=== PATIENT | male | born 1930 | race American Indian/Alaskan Native ===

== ENCOUNTER 2016-07-08 14:53 | Inpatient (IN) | payer MEDICARE, MEDICAID ==
[2016-07-08 14:59] VITALS: BMI 31.4
[2016-07-08] MEDS ORDERED: Aspirin 325 mg EC Tablets PO STA (15:17)
--- NOTE | 2016-07-08 15:44 | RAD ---
HISTORY: chest pain COMPARISON: 06/30/2016 FINDINGS: LUNGS: No active pulmonary disease. PLEURA: No significant pleural effusion identified, no pneumothorax apparent. CARDIOVASCULAR: Normal heart size. Right subclavian central venous port. OSSEOUS STRUCTURES: No significant abnormalities. VISUALIZED UPPER ABDOMEN: Normal. OTHER FINDINGS: None. IMPRESSION: No active disease.
--- NOTE | 2016-07-08 15:53 | ED PDOC ---
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 Pt states that this morning he went to crab picker a package from the floor and he started to feel L sided chest pain and shoulder pain. His daughter than called the EMS. Pt denies this ever occurring before but admits to being more shortness of breath in the past few weeks. He denies any nausea, vomiting, diaphoresis. He states that the pain was 7/10 in severity. He denies any headache, dizziness, f/c, palpitations, abd pain, n/v/ d. (Aguila Cifuentes) Past Medical History - Provider Review Nursing Documentation Reviewed: Yes - Infectious Disease Hx of Infectious Diseases: None - Tetanus Immunization Tetanus Immunization: Unknown - Cardiac Hx Cardiac Disorders: Yes Hx Hypertension: Yes - Pulmonary Hx Respiratory Disorders: No - Neurological Hx Neurological Disorder: No - HEENT Hx HEENT Disorder: Yes Hx Blind: Yes (left eye cancer) Hx Glaucoma: Yes (right eye) - Renal Hx Renal Disorder: No - Endocrine/Metabolic Hx Endocrine Disorders: No - Hematological/Oncological Hx Blood Disorders: No - Integumentary Hx Dermatological Disorder: No - Musculoskeletal/Rheumatological Hx Musculoskeletal Disorders: No - Gastrointestinal Hx Gastrointestinal Disorders: No - Genitourinary/Gynecological Hx Genitourinary Disorders: No - Psychiatric Hx Psychophysiologic Disorder: No Hx Depression: No Hx Emotional Abuse: No Hx Physical Abuse: No Hx Substance Use: No - Surgical History Hx Eye Surgery: Yes Other/Comment: intestinal surgery - Anesthesia Hx Anesthesia: Yes Hx Anesthesia Reactions: No Hx Malignant Hyperthermia: No - Suicidal Assessment Feels Threatened In Home Enviroment: No Family/Social History - Physician Review Nursing Documentation Reviewed: Yes Family/Social History: CVA/TIA (father ), Neoplasm/Cancer (mother) Smoking Status: Former Smoker Hx Alcohol Use: No Hx Substance Use: No Hx Substance Use Treatment: No Allergies/Home Meds Allergies/Adverse Reactions: Allergies No Known Allergies Allergy (Verified 11/13/15 14:44) Home Medications: Home Meds Medication Instructions Recorded Confirmed amLODIPine [Norvasc] 5 mg PO DAILY 11/13/15 11/13/15 Review of Systems - Review of Systems Constitutional: absent: Fatigue, Fevers Eyes: absent: Vision Changes ENT: absent: Hearing Changes Respiratory: SOB. absent: Cough, Sputum, Wheezing Cardiovascular: Chest Pain. absent: Palpitations, Edema Gastrointestinal: absent: Abdominal Pain, Constipation, Diarrhea, Nausea, Vomiting Genitourinary Male: absent: Dysuria, Frequency Musculoskeletal: absent: Arthralgias, Back Pain Skin: absent: Rash Neurological: absent: Headache, Dizziness, Focal Weakness Endocrine: absent: Diaphoresis Psychiatric: absent: Anxiety, Depression Physical Exam Blood Pressure: Hypertensive Pulse: Regular Respiratory Rate: Normal Appearance: Positive for: Well-Appearing, Non-Toxic, Comfortable Pain Distress: None Mental Status: Positive for: Alert and Oriented X 3 - Systems Exam Head: Present: Atraumatic, Normocephalic Pupils: Present: PERRL Extroacular Muscles: Present: EOMI Mouth: Present: Moist Mucous Membranes Neck: Present: Normal Range of Motion Respiratory/Chest: Present: Clear to Auscultation, Good Air Exchange. No: Respiratory Distress, Accessory Muscle Use Cardiovascular: Present: Regular Rate and Rhythm, Normal S1, S2. No: Murmurs Abdomen: Present: Normal Bowel Sounds. No: Tenderness, Distention, Peritoneal Signs Upper Extremity: Present: Normal Inspection. No: Cyanosis, Edema Lower Extremity: Present: Normal Inspection. No: Edema Neurological: Present: GCS=15, CN II-XII Intact, Speech Normal Skin: Present: Warm, Dry, Normal Color. No: Rashes Psychiatric: Present: Alert, Oriented x 3, Normal Insight, Normal Concentration Vital Signs Pulse Resp BP Pulse Ox 07/08/16 17:05 78 18 141/96 H 96 Medical Decision Making ED Course and Treatment: Patient Seen With Resident: In agreement with resident note. Patient was seen and evaluated with resident, came up with plan and treatment together. 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 Differential Diagnosis included but are not limited to: R/O SD vs costochondritis Plan: - CBC, CMP, BNP, cardiac Iso - EKG stat - Aspirin 325mg stat - CXR - Reassess and disposition Prior Visits: Notes and results from previous visits were reviewed. On 11/03/15 patient came in complaining of UTI/ prostatitis. Progress Notes: EKG: Ordered, reviewed, and independently interpreted the EKG. Rate : 71 BPM Rhythm : Sinus rhythm with marked sinus arrhythmia with first degree AV block, RBB Interpretation : Comparison : 11/19/12 07/08/16 16:00 Pt hemodynamically stable. Denies any chest pain. 07/08/16 17:[address] Murillo which stated he has only seen this patient once and he has been his partners pt. He rec admitting patient under hospitalist service under observation to r/o SD and any cardiac cause. 07/08/16 17:[address] Randall which will accept the patient on her service. Pt will be placed on Tele. ([place]) - Lab Interpretations Lab Results: 07/08/16 16:17 07/08/16 16:17 Lab Results 07/08/16 16:17: Sodium 142, Potassium 4.3, Chloride 105, Carbon Dioxide 29, Anion Gap 12, BUN 19, Creatinine 1.1, Est GFR ( Amer) > 60, Est GFR (Non- Af Amer) > 60, Random Glucose 91, Calcium 9.5, Total Bilirubin 0.6, AST 28, ALT 54, Alkaline Phosphatase 45, Lactate Dehydrogenase 417, Total Creatine Kinase 76 , Troponin I < 0.01, NT-Pro-B Natriuret Pep 59.7, Total Protein 7.5, Albumin 3.8 , Globulin 3.6, Albumin/Globulin Ratio 1.1 07/08/16 16:17: WBC 3.9 L D, RBC 3.65, Hgb 11.8 L, Hct 35.0 L, MCV 95.9, MCH 32.3, MCHC 33.7, RDW 12.8, Plt Count 212, MPV 9.7, Gran % 46.2 L, Lymph % (Auto ) 38.0 H, [place] % (Auto) 10.1 H, Eos % (Auto) 5.4 H, Baso % (Auto) 0.3, Gran # 1.79, Lymph # 1.5, [place] # 0.4, Eos # 0.2, Baso # 0.01 - RAD Interpretation Radiology Orders: 07/08/16 15:17 CXR [CHEST PORTABLE] [RAD] Stat - Medication Orders Current Medication Orders: Discontinued Medications Aspirin (Ecotrin) 325 mg PO STAT STA Stop: 07/08/16 15:18 - PA / STAFF AIR DEFENSE OFFICER / Resident Statement / has reviewed & agrees with the documentation as recorded. / has examined the patient and agrees with the treatment plan. Disposition/Present on Arrival - Present on Arrival Any Indicators Present on Arrival: No History of DVT/PE: No History of Uncontrolled Diabetes: No Urinary Catheter: No History of Decub. Ulcer: No History Surgical Site Infection Following: None - Disposition Have Diagnosis and Disposition been Completed?: Yes Disposition Time: 17:10 Patient Plan: Observation - Disposition Diagnosis: Chest pain Disposition: HOSPITALIZED Patient Problems: Current Active Problems Problem Status Onset Chest pain Acute Condition: FAIR Discharge Instructions (ExitCare): Chest Pain (ED) Referrals: Clement Murillo MD [Staff Provider] - Follow up with primary
[2016-07-08 16:25] LABS: ADD MANUAL DIFF? NO
[2016-07-08 16:31] LABS: BASO # 0.01 K/mm3 (0.0-2.0); BASO % 0.3 % (0.0-3.0); EOS # 0.2 (0.0-0.7); EOS % 5.4 % (1.5-5.0); GRAN # 1.79 (1.4-6.5); GRAN % 46.2 % (50.0-68.0); LYMPH # 1.5 (1.2-3.4); MEAN CELL VOLUME 95.9 fL (80.0-105.0); MEAN CORPUSCULAR HEMOGLOBIN 32.3 pg (25.0-35.0); MEAN CORPUSCULAR HGB CONC 33.7 g/dl (31.0-37.0); MEAN PLATELET VOLUME 9.7 fl (7.0-11.0); MONO # 0.4 (0.1-0.6); MONO % 10.1 % (1.0-6.0); PLATELET COUNT 212 10^3/uL (120.0-450.0); RED CELL DISTRIBUTION WIDTH 12.8 % (11.5-14.5); WHITE BLOOD COUNT 3.9 10^3/ul (4.5-11.0)
[2016-07-08 16:39] LABS: ALB/GLOB RATIO 1.1 (1.1-1.8); ALKALINE PHOSPHATASE 45 U/L (38-133); ALT/SGPT 54 U/L (7-56); AST/SGOT 28 U/L (15-59); BILIRUBIN,TOTAL 0.6 mg/dL (0.2-1.3); BLOOD UREA NITROGEN 19 mg/dL (7-21); CALCIUM 9.5 mg/dL (8.4-10.5); CARBON DIOXIDE 29 mmol/L (21-33); CHLORIDE 105 mmol/L (98-107); GFR AFRICAN-AMERICAN > 60; GLUCOSE,RANDOM 91 mg/dL (70-110); POTASSIUM 4.3 mmol/L (3.6-5.0); SODIUM 142 mmol/L (132-148); TOTAL PROTEIN 7.5 g/dL (5.8-8.3)
[2016-07-08 16:51] LABS: TROPONIN I < 0.01 ng/mL
--- NOTE | 2016-07-08 18:11 | CP.PCM.HP ---
<Hector Sweet - Last Filed: 07/08/16 19:01> History of Present Illness - History of Present Illness History of Present Illness: CC: Chest pain 86yo M with PMHx of HTN, Colon CA s/p resection, Eye CA s/p L eye resection here for evaluation of chest pain. Patient was at home when he was lifting a heavy object and experienced a left sided chest and shoulder pain with shortness of breath. Pain lasted about 20mins and has since resolved. Pain radiated to the left shoulder. At its worst, pain was 7/10. He has never experienced a pain such as this before. No exacerbating or remitting factors. He states that he has been increasingly more short of breath over the past week. He also noticed bilateral lower extremity edema but is unsure when it started. He is ambulatory with cane and assistance with home health aide. Denies diaphoresis. Denies N/V/D. No Abd pain. No F/C. No Headache. No urinary complaints. PMD: [place] PMHx: HTN, Colon CA s/p chemo and resection 1993, L eye CA s/p resection 1991. PSHx: Colon CA resection 1993, L Eye CA s/p resection. Right Inguinal hernia repair Family Hx: Mother with unknown CA Social Hx: Previous smoker, quit 1999, Current occasional ETOH use (beer, last use 2 weeks ago), Denies any illicit drugs. Lives at home with daughter NKDA Meds: Amlodipine, Tamsulosin Present on Admission - Present on Admission Any Indicators Present on Admission: No Review of Systems - Review of Systems All systems: reviewed and no additional remarkable complaints except - Constitutional Constitutional: absent: Chills, Fever - EENT Eyes: Loss of Vision (left eye) Ears: absent: Decreased Hearing Nose/Mouth/Throat: absent: Epistaxis - Cardiovascular Cardiovascular: Chest Pain, Dyspnea, Leg Edema. absent: Diaphoresis - Respiratory Respiratory: Dyspnea. absent: Cough, Hemoptysis - Gastrointestinal Gastrointestinal: absent: Abdominal Pain, Diarrhea, Nausea, Vomiting - Genitourinary Genitourinary: absent: Dysuria - Musculoskeletal Musculoskeletal: absent: Back Pain - Neurological Neurological: absent: Abnormal Gait - Psychiatric Psychiatric: absent: Anxiety - Endocrine Endocrine: absent: Palpitations Past Patient History - Infectious Disease Hx of Infectious Diseases: None - Tetanus Immunizations Tetanus Immunization: Unknown - Past Medical History & Family History Past Family History: Reviewed and not pertinent - Past Social History Smoking Status: Former Smoker - CARDIAC Hx Cardiac Disorders: Yes Hx Hypertension: Yes - PULMONARY Hx Respiratory Disorders: No - NEUROLOGICAL Hx Neurological Disorder: No - HEENT Hx HEENT Problems: Yes Hx Blind: Yes (left eye cancer) Hx Glaucoma: Yes (right eye) - RENAL Hx Chronic Kidney Disease: No - ENDOCRINE/METABOLIC Hx Endocrine Disorders: No - HEMATOLOGICAL/ONCOLOGICAL Hx Blood Disorders: No - INTEGUMENTARY Hx Dermatological Problems: No - MUSCULOSKELETAL/RHEUMATOLOGICAL Hx Musculoskeletal Disorders: No - GASTROINTESTINAL Hx Gastrointestinal Disorders: No - GENITOURINARY/GYNECOLOGICAL Hx Genitourinary Disorders: No - PSYCHIATRIC Hx Psychophysiologic Disorder: No Hx Depression: No Hx Emotional Abuse: No Hx Physical Abuse: No Hx Substance Use: No - SURGICAL HISTORY Hx Eye Surgery: Yes Other/Comment: intestinal surgery - ANESTHESIA Hx Anesthesia: Yes Hx Anesthesia Reactions: No Hx Malignant Hyperthermia: No Meds Home Medications: Home Medication List Medication Instructions Recorded Confirmed Type hydroCHLOROthiazide [Microzide] 12.5 mg PO DAILY #30 cap 07/09/16 Rx Allergies/Adverse Reactions: Allergies Allergy/AdvReac Type Severity Reaction Status Date / Time No Known Allergies Allergy Verified 07/08/16 18:20 Physical Exam - Constitutional Appears: Well, No Acute Distress - Head Exam Head Exam: ATRAUMATIC, NORMAL INSPECTION, NORMOCEPHALIC - Eye Exam Eye Exam: absent: Scleral icterus Additional comments: Left eye s/p surgery. Right eye EOMI - ENT Exam ENT Exam: Mucous Membranes Moist - Respiratory Exam Respiratory Exam: Clear to Auscultation Bilateral, NORMAL BREATHING PATTERN. absent: Accessory Muscle Use, Rales, Rhonchi, Wheezes - Cardiovascular Exam Cardiovascular Exam: RRR, +S1, +S2. absent: JVD - GI/Abdominal Exam GI & Abdominal Exam: Normal Bowel Sounds, Soft. absent: Distended, Guarding, Rebound - Extremities Exam Extremities exam: Positive for: pedal edema Additional comments: bilateral 2+ pitting pretibial edema - Neurological Exam Neurological exam: Alert, Oriented x3 - Psychiatric Exam Psychiatric exam: Normal Affect, Normal Mood - Skin Skin Exam: Dry, Intact, Normal Color, Warm Results - Vital Signs Recent Vital Signs: Last Vital Signs Temp Pulse 78 07/08/16 17:05 Resp 18 07/08/16 17:05 BP 141/96 H 07/08/16 17:05 Pulse Ox 96 07/08/16 17:05 - Labs Result Diagrams: 07/08/16 16:17 07/08/16 16:17 Labs: Laboratory Results - last 24 hr 07/08/16 07/08/16 16:17 16:17 WBC 3.9 L D RBC 3.65 Hgb 11.8 L Hct 35.0 L MCV 95.9 MCH 32.3 MCHC 33.7 RDW 12.8 Plt Count 212 MPV 9.7 Gran % 46.2 L Lymph % (Auto) 38.0 H [place] % (Auto) 10.1 H Eos % (Auto) 5.4 H Baso % (Auto) 0.3 Gran # 1.79 Lymph # 1.5 [place] # 0.4 Eos # 0.2 Baso # 0.01 Sodium 142 Potassium 4.3 Chloride 105 Carbon Dioxide 29 Anion Gap 12 BUN 19 Creatinine 1.1 Est GFR ( Amer) > 60 Est GFR (Non-Af Amer) > 60 Random Glucose 91 Calcium 9.5 Total Bilirubin 0.6 AST 28 ALT 54 Alkaline Phosphatase 45 Lactate Dehydrogenase 417 Total Creatine Kinase 76 Troponin I < 0.01 NT-Pro-B Natriuret Pep 59.7 Total Protein 7.5 Albumin 3.8 Globulin 3.6 Albumin/Globulin Ratio 1.1 - EKG Data EKG Interpreted by: Myself EKG shows normal: Sinus rhythm Rate: Normal - EKG Data EKG comments: 1st degree AV Block. RI prolonged. No ST changes Assessment & Plan - Assessment and Plan (Free Text) Assessment: 86yo M with PMHx of HTN, Colon CA s/p chemo and resection, L Eye CA s/p resection here for evaluation of SOB and CP 1. Chest pain EKG- no ST changes. 1st degree AV block. RI prolonged Troponin negative x1. pBNP normal CXR - no active disease serial troponins Consult Cardiology, Dr. Hardy, appreciate recs NPO past midnight for possible Stress test in the AM. f/u Cardio recs f/u TSH f/u Lipid panel f/u HbA1c f/u ECHO tele monitoring ASA 81 daily 2. Lower extremity edema f/u ECHO f/u Bilateral LE doppler continue to monitor Strict I&Os Fall precautions 3. Hx of HTN continue home meds Amlodipine 5mg PO Daily 4. PPx SCDs Famotidine 20mg PO Daily Discussed case with Dr. Tonia Sweet PGY1 <Sherri Randall - Last Filed: 07/10/16 16:11> Results - Vital Signs Recent Vital Signs: Last Vital Signs Temp 98.5 F 07/10/16 11:46 Pulse 70 07/10/16 11:46 Resp 20 07/10/16 11:46 BP 154/77 H 07/10/16 11:46 Pulse Ox 97 07/10/16 05:51 - Labs Result Diagrams: 07/10/16 07:00 07/10/16 07:00 Labs: Laboratory Results - last 24 hr 07/10/16 07/10/16 07:00 07:00 WBC 3.3 L RBC 3.77 Hgb 12.0 L Hct 35.7 L MCV 94.7 MCH 31.8 MCHC 33.6 RDW 12.6 Plt Count 210 MPV 9.6 Gran % 45.5 L Lymph % (Auto) 37.4 H [place] % (Auto) 10.5 H Eos % (Auto) 6.0 H Baso % (Auto) 0.6 Gran # 1.52 Lymph # 1.3 [place] # 0.4 Eos # 0.2 Baso # 0.02 Sodium 140 Potassium 3.7 Chloride 104 Carbon Dioxide 27 Anion Gap 13 BUN 15 Creatinine 1.1 Est GFR ( Amer) > 60 Est GFR (Non-Af Amer) > 60 Random Glucose 85 Calcium 9.2 Attending/Attestation - Attestation I have personally seen and examined this patient.: Yes I have fully participated in the care of the patient.: Yes I have reviewed all pertinent clinical information: Yes Notes (Text): I have seen and examined this patient at bedside. This is 86 year old male with history of HTN, former smoker, colon cancer s/p resection & chemo, left eye cancer s/p resection who got admitted for evaluation of chest pain which is most likely musculoskeletal in origin however will need to rule out ACS. Will order serial troponins and ekg. First set of troponin and ekg is normal. BNP is normal. CXR is negative. Will check tsh, hba1c, LE duplex and echo. Will consult ground operations crew member for possible stress test. Will make the patient npo past midnight. ROWDY montelongo as he has bilateral LE edema. Upon discharge patient will follow up with Dr Vale. Dr Sherri Randall
[2016-07-09 07:10] LABS: ADD MANUAL DIFF? NO
[2016-07-09 07:16] LABS: BASO # 0.02 K/mm3 (0.0-2.0); BASO % 0.5 % (0.0-3.0); EOS # 0.2 (0.0-0.7); EOS % 4.5 % (1.5-5.0); GRAN % 50.2 % (50.0-68.0); HEMATOCRIT 35.9 % (42.0-52.0); LYMPH # 1.4 (1.2-3.4); LYMPH % 35.6 % (22.0-35.0); MEAN CELL VOLUME 95.2 fL (80.0-105.0); MEAN CORPUSCULAR HEMOGLOBIN 32.4 pg (25.0-35.0); MEAN PLATELET VOLUME 9.5 fl (7.0-11.0); MONO # 0.4 (0.1-0.6); MONO % 9.2 % (1.0-6.0); PLATELET COUNT 196 10^3/uL (120.0-450.0); RED CELL DISTRIBUTION WIDTH 12.7 % (11.5-14.5); WHITE BLOOD COUNT 3.8 10^3/ul (4.5-11.0)
[2016-07-09 07:24] LABS: INR 1.01 (0.93-1.08); PARTIAL THROMBOPLASTIN TIME 30.1 Seconds (23.7-30.8)
[2016-07-09 07:32] LABS: ALB/GLOB RATIO 1.2 (1.1-1.8); ALKALINE PHOSPHATASE 47 U/L (38-133); ALT/SGPT 36 U/L (7-56); AST/SGOT 24 U/L (15-59); BLOOD UREA NITROGEN 17 mg/dL (7-21); CALCIUM 9.3 mg/dL (8.4-10.5); CARBON DIOXIDE 27 mmol/L (21-33); CHLORIDE 108 mmol/L (98-107); CHOLESTEROL 199 mg/dL (130-200); GFR AFRICAN-AMERICAN > 60; GLUCOSE,RANDOM 83 mg/dL (70-110); SODIUM 139 mmol/L (132-148); TOTAL PROTEIN 6.9 g/dL (5.8-8.3)
[2016-07-09 07:47] LABS: TROPONIN I 0.01 ng/mL
--- NOTE | 2016-07-09 09:21 | CON ---
DATE: 07/09/2016 SERVICE: Cardiology. CONSULTING PHYSICIAN: Dr. Keith Hardy. REASON FOR CONSULTATION AND FOLLOWUP: Shortness of breath, chest pain, rule out CAD. BRIEF CLINICAL HISTORY: This is an 86-year-old male, legally blind, who goes to a daycare center, hi story of hypertension. He said that he gets the food from the [employer] at his home. He picke d it up and went inside. He felt some shortness of breath, though he gets usually shortness of breat h, but ____ changes and some sharp pain in the chest, so called the daughter. Daughter lives up the stairs, advised to come to the hospital for evaluation. The patient denies any prior episode of ches t pain, but complained of dyspnea on exertion. PAST MEDICAL HISTORY: Significant for hypertension, colon CA, status post resection, history of eye cancer, status post left eye resection. PAST SURGICAL HISTORY: Significant for colon cancer, history of resection of testicles, history of c hemotherapy, history of resection of colon in 1993, history of left eye resection in 1991, history of right inguinal hernia repair as well. FAMILY HISTORY: Noncontributory. SOCIAL HISTORY: Previous smoker, quit 1999, history of socially drinks alcohol. ALLERGIES: No known drug allergy. CURRENT MEDICATIONS: The patient is taking amlodipine for blood pressure and tamsulosin given by Dr. Murillo. REVIEW OF SYSTEMS: As per HPI. PHYSICAL EXAMINATION: VITAL SIGNS: Temperature afebrile, heart rate 70, blood pressure 141/82. HEENT: PERRLA. Extraocular muscles intact. NECK: Supple. No carotid bruits. No thyromegaly. CHEST: Clear to auscultation. HEART: S1, S2 regular. ABDOMEN: Soft. EXTREMITIES: Clubbing and cyanosis negative. BLOOD WORKUP: As follows: WBC 3.8, hemoglobin 12.2, hematocrit 35.9, platelet count 196. Chemistry shows sodium 130, potassium 4, chloride 100, carbon dioxide 27, anion gap of 8, BUN 17, creatinine 1 .0. Troponin 0.01, negative. EKG showed normal sinus, marked sinus arrhythmia, right bundle branch block.: IMPRESSION: Dyspnea on exertion, hypertension, shortness of breath, rule out ischemia, rule out francesco nary artery disease though chest pain was atypical. So far, troponin is negative, no evidence of acu te coronary syndrome, no evidence of unstable angina, but given the multiple risk factors for coronar y artery disease, suggest echo and a stress test today. The patient lives by himself and is legally blind, so for risk stratification and for the sole reason because the patient cannot express and is l egally blind, suggest a stress test before the patient goes home. We will schedule today. Thank you, Dr. Randall, for providing us opportunity in taking care of the patient. We will follow with you. Keith Hardy MD cc:Sherri Randall MD 305 TT: 07/09/2016 09:20:45 Confirmation # [id number] Dictation # [id number] tn
--- NOTE | 2016-07-09 09:25 | US ---
HISTORY: Leg pain and swelling. Evaluate for DVT PHYSICIAN(S): Vikram Newton MD. TECHNIQUE: Duplex sonography and color-flow Doppler with graded compression were used to evaluate the deep venous systems of both lower extremities. FINDINGS: The visualized deep venous systems of both lower extremities are sonographically normal and compressible. Normal wave forms and augmentation are seen. There is no sonographic evidence for deep venous thrombosis in the visualized segments of both lower extremities. IMPRESSION: No sonographic evidence for deep venous thrombosis in the visualized segments of both lower extremities.
[2016-07-09] MEDS ORDERED: Aminophylline 25 mg/ml Inj ONE (10:04)
--- NOTE | 2016-07-09 13:13 | CARD ---
APPROVED REPORT EKG Measurement Heart [id number] <Conclusion> Sinus rhythm APCs Right bundle branch block STTW changes
--- NOTE | 2016-07-09 17:28 | CP.PCM.PN ---
<Alejandra Gill - Last Filed: 07/09/16 17:21> Subjective - Date & Time of Evaluation Date of Evaluation: 07/09/16 Time of Evaluation: 17:21 - Subjective Subjective: HOSPITALISTS PROGRESS NOTE Pt is seen and examined at bedside. No acute events overnight. Patient state he slept well. He states that his chest pain is not present currently but it is reproducible with movement of left arm and with palpation. He denies having any SOB, abd pain, N/V/D/C. After speaking with patient's daughters, patient has not been at his baseline mentation for about 2 weeks now. Daughters state that his behavior is more aggressive towards women and he has been more clumsy lately bumping into stuff. Objective - Vital Signs/Intake and Output Vital Signs (last 24 hours): Temp Pulse Resp BP Pulse Ox 98.5 F 73 20 140/90 96 07/09/16 05:46 07/09/16 10:00 07/09/16 05:46 07/09/16 10:00 07/09/16 05:46 Intake and Output: 07/09/16 07/09/16 06:59 18:59 Intake Total 0 540 Output Total 550 700 Balance -550 -160 - Medications Medications: Current Medications Aspirin (Aspirin Chewable) 81 mg PO DAILY [facility] Last Admin: 07/09/16 13:50 Dose: 81 mg Famotidine (Pepcid) 20 mg PO DAILY [facility] Last Admin: 07/09/16 13:52 Dose: 20 mg Hydrochlorothiazide (Microzide) 12.5 mg PO DAILY [facility] Last Admin: 07/09/16 13:51 Dose: 12.5 mg Ondansetron HCl (Zofran Inj) 4 mg IVP Q6 PRN PRN Reason: Nausea/Vomiting Tamsulosin HCl (Flomax) 0.4 mg PO DAILY [facility] Last Admin: 07/09/16 13:50 Dose: 0.4 mg - Labs Labs: 07/09/16 07:00 07/09/16 07:00 PT 10.9 Seconds (9.9-11.8) 07/09/16 07:00 INR 1.01 (0.93-1.08) 07/09/16 07:00 APTT 30.1 Seconds (23.7-30.8) 07/09/16 07:00 - Constitutional Appears: Non-toxic, No Acute Distress - Head Exam Head Exam: ATRAUMATIC - Eye Exam Eye Exam: EOMI - ENT Exam ENT Exam: Mucous Membranes Moist - Respiratory Exam Respiratory Exam: Clear to Ausculation Bilateral, NORMAL BREATHING PATTERN. absent: Rales, Rhonchi, Wheezes - Cardiovascular Exam Cardiovascular Exam: REGULAR RHYTHM, +S1, +S2. absent: Gallop, Rubs, Murmur Additional comments: left sided tenderness to palpation - GI/Abdominal Exam GI & Abdominal Exam: Soft, Normal Bowel Sounds. absent: Distended, Firm, Guarding, Rigid, Tenderness - Extremities Exam Extremities Exam: absent: Pedal Edema, Tenderness - Neurological Exam Neurological Exam: Alert, Awake, Oriented x3 - Psychiatric Exam Psychiatric exam: Normal Affect, Normal Mood - Skin Skin Exam: Dry, Intact, Normal Color, Warm Assessment and Plan - Assessment and Plan (Free Text) Assessment: 86yo M with PMHx of HTN, Colon CA s/p chemo and resection, L Eye CA s/p resection here for evaluation of SOB and CP. Serial trops are negative and EKG showed no ST changes. Pro BNP is WNL and CXR is negative. 1. Chest pain Cardiology, Dr. Hardy, is consulted. appreciate recs Awaiting stress test and echo result TSH, lipid panel and HgbA1c are WNL tele monitoring ASA 81 daily 2. AMS x [address] of head without contrast Psych, Dr. Ramon is consulted Neurology, Dr. Ferrara is consulted. 3. Lower extremity edema ECHO is pending LE doppler US is negative for DVT continue to monitor Strict I&Os Fall precautions 4. Hx of HTN Patient is switched to HCTZ 12.5 mg po qd. Stopped norvasc due to LE swelling. 5. PPx SCDs Famotidine 20mg PO Daily Discussed case with attending Dr. Randall <Sherri Randall - Last Filed: 07/10/16 16:18> Objective - Vital Signs/Intake and Output Vital Signs (last 24 hours): Temp Pulse Resp BP Pulse Ox 98.5 F 70 20 154/77 H 97 07/10/16 11:46 07/10/16 11:46 07/10/16 11:46 07/10/16 11:46 07/10/16 05:51 Intake and Output: 07/10/16 07/10/16 06:59 18:59 Intake Total 1220 Balance 1220 - Medications Medications: Current Medications Aspirin (Aspirin Chewable) 81 mg PO DAILY [facility] Last Admin: 07/10/16 10:23 Dose: 81 mg Famotidine (Pepcid) 20 mg PO DAILY [facility] Last Admin: 07/10/16: Dose: 20 mg Haloperidol (Haldol) 0.25 mg PO Q6 PRN; Protocol PRN Reason: Agitation Hydrochlorothiazide (Microzide) 12.5 mg PO DAILY [facility] Last Admin: 07/10/16 10: Dose: 12.5 mg Ondansetron HCl (Zofran Inj) 4 mg IVP Q6 PRN PRN Reason: Nausea/Vomiting Tamsulosin HCl (Flomax) 0.4 mg PO DAILY [facility] Last Admin: 07/10/16 Dose: 0.4 mg - Labs Labs: 07/10/16 07:00 07/10/16 07:00 PT 10.9 Seconds (9.9-11.8) 07/09/16 07:00 INR 1.01 (0.93-1.08) 07/09/16 07:00 APTT 30.1 Seconds (23.7-30.8) 07/09/16 07:00 Attending/Attestation - Attestation I have personally seen and examined this patient.: Yes I have fully participated in the care of the patient.: Yes I have reviewed all pertinent clinical information, including history, physical exam and plan: Yes Notes (Text): I have seen and examined this patient at bedside. This is 86 year old male with history of HTN, former smoker, colon cancer s/p resection & chemo, left eye cancer s/p resection who got admitted for evaluation of chest pain which is most likely musculoskeletal in origin. Serial troponin and ekg was within normal limits. Given the risk factors, patient underwent stress test. Result of which is pending at this time. Patients daughter expressed concern today that patient has been very forgetful for the past 2 weeks and has been very clumsy. He also has developed behavioral disturbance and has developed agitation which is probably secondary to cognitive impairment however we need to rule out other causes. Will order CT scan, neuro and psych consult. LE swelling has improved. LE duplex is negative. Start HCTZ for HTN. Upon discharge patient will follow up with Dr Vale. Dr Sherri Randall
--- NOTE | 2016-07-09 18:27 | CARD ---
APPROVED REPORT EXAM: Two-dimensional and M-mode echocardiogram with Doppler and color Doppler. INDICATION Chest Pain LVFX 2D DIMENSIONS Left Atrium (2D)5.2 (1.6-4.0cm)IVSd1.0 (0.7-1.1cm) LVDd4.8 (3.9-5.9cm)PWd1.2 (0.7-1.1cm) LVDs3.2 (2.5-4.0cm)FS (%) 34.4 % LVEF (%)63.6 (>50%) M-Mode DIMENSIONS Aortic Root3.40 (2.2-3.7cm)Aortic Cusp Exc.1.70 (1.5-2.0cm) Aortic Valve AoV Peak Ttjihujp116.0cm/sAoV VTI28.1cmAO Peak GR.7mmHg LVOT Peak Nozkorog87.7cm/sLVOT VTI18.40cmAO Mean GR.4mmHg Mitral Valve MV E Brcrjfke66.3cm/sMV A Okzlkglm05.5cm/sE/A ratio0.7 TDI Lateral E' Peak V7.12cm/sMedial E' Peak V6.43cm/sE/Lateral E'7.9 E/Medial E'8.8 Pulmonary Valve PV Peak Tsdyevry88.4cm/sPV Peak Grad.3mmHg Tricuspid Valve TR Peak Fcmoiaxd326qm/sRAP [id number] Peak Gr.23mmHg [id number] LEFT VENTRICLE The left ventricle is normal size. There is borderline to mild concentric left ventricular hypertrophy. The left ventricular function is normal.EF-60-65% There is normal LV segmental wall motion. Transmitral Doppler flow pattern is Grade III-reversible restrictive diastolic dysfunction. No left ventricle thrombus noted on this study. There is no ventricular septal defect visualized. There is no left ventricular aneurysm. There is no mass noted in the left ventricle. RIGHT VENTRICLE The right ventricle is normal size. There is normal right ventricular wall thickness. The right ventricular systolic function is normal. ATRIA The left atrium is mildly dilated. The right atrium size is normal. The interatrial septum is intact with no evidence for an atrial septal defect. AORTIC VALVE The aortic valve is thickened but opens well. There is trace aortic regurgitation. There is no aortic valvular stenosis. There is no aortic valvular vegetation. MITRAL VALVE The mitral valve is thickened but opens well. Mitral annular calcification is mild to moderate. Mitral regurgitation is mild. There is no mitral valve stenosis. There is no evidence of mitral valve prolapse. TRICUSPID VALVE The tricuspid valve leaflets are thickened , but open well. There is mild tricuspid regurgitation.RVSP-29 mmof Hg. There is no tricuspid valve stenosis. There is no tricuspid valve prolapse or vegetation. PULMONIC VALVE The pulmonic valve is borderline thickened. There is trace pulmonic valvular regurgitation. There is no pulmonic valvular stenosis. GREAT VESSELS The aortic root is normal in size. The ascending aorta is normal in size. The pulmonary artery is normal. The IVC is normal in size and collapses >50% with inspiration. PERICARDIAL EFFUSION There is no pleural effusion. There is no pericardial effusion. <Conclusion> The left ventricle is normal size. There is borderline to mild concentric left ventricular hypertrophy. The left ventricular function is normal.EF-60-65% There is trace aortic regurgitation. Mitral regurgitation is mild. There is mild tricuspid regurgitation.RVSP-29 mmof Hg. There is trace pulmonic valvular regurgitation. The IVC is normal in size and collapses >50% with inspiration. There is no pericardial effusion.
--- NOTE | 2016-07-09 19:04 | CT ---
PROCEDURE: CT HEAD WITHOUT CONTRAST. HISTORY: AMS x 2 weeks COMPARISON: None available. TECHNIQUE: Axial computed tomography images were obtained through the head/brain without intravenous contrast. Radiation dose: Total exam DLP = 725.84 mGy-cm. This CT exam was performed using one or more of the following dose reduction techniques: Automated exposure control, adjustment of the mA and/or kV according to patient size, and/or use of iterative reconstruction technique. FINDINGS: HEMORRHAGE: No acute parenchymal, subarachnoid or extra-axial hemorrhage. BRAIN: Moderate to significant diffuse/confluent chronic white matter ischemic changes seen extending peripherally into the deep and subcortical white matter both cerebral hemispheres. In addition, there also appears to be a few scattered more discrete chronic lacunar-type infarcts within both basal nuclei. VENTRICLES: Unremarkable. No hydrocephalus. CALVARIUM: No acute calvarial fractures. PARANASAL SINUSES: Unremarkable as visualized. No significant inflammatory changes. MASTOID AIR CELLS: Unremarkable as visualized. No inflammatory changes. 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 Status post right cataract surgery. IMPRESSION: No acute intracranial hemorrhage. Moderate to significant chronic white matter ischemic changes extending peripherally into the deep and subcortical white matter both cerebral hemispheres. There are also scattered chronic bilateral basal nuclei lacunar type infarcts. Moderate generalized volume loss. 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
--- NOTE | 2016-07-09 19:27 | CON ---
DATE: 07/09/2016 CHIEF COMPLAINT: History of agitation and behavioral change for the past 2 weeks noted by daughter. HISTORY OF PRESENT ILLNESS: An 86-year-old man who is legally blind with past medical history of hyp ertension, colon cancer status post resection, history of eye cancer status post left eye resection, who goes to a daycare and receives Meals on Wheels at home, who came in for shortness of breath and s harp chest pain, which has been worked up by cardiology where he had an echocardiogram, which showed an EF of 60-65% with mild concentric left ventricular hypertrophy and ultrasound of the lower extremi ties showing no evidence of deep vein thrombosis due to his lower extremity swelling. I was consulted because it was noted by the daughter that for the past 2 weeks, he has been more aggressive toward w ángeln and has been very clumsy and lately bumping into stuff. During my evaluation, he is alert, orien derrell to person and place and year, knows the President but has poor attention and slow thought process . Recall after 5 minutes is 0/3. He is legally blind. He moves all extremities, no pronator drift seen. He does have evidence of some underlying peripheral neuropathy from likely history of cancer a s well as chemotherapy residuals. He had a CAT scan. Preliminary report pending. Shows no acute in tracranial abnormalities, chronic ischemic changes. Awaiting official report. He seems to be at his baseline, has mild to moderate cognitive impairment. PAST MEDICAL HISTORY: History of hypertension, colon cancer status post chemo and resection, left ey e cancer status post resection. REVIEW OF SYSTEMS: A 14-point review of systems is negative except for the HPI. MEDICATIONS: Reviewed via nursing reconciliation sheet. ALLERGIES: No known drug allergies. FAMILY HISTORY: Noncontributory. SOCIAL HISTORY: No illicit drug use, smoking, or ETOH abuse. FAMILY HISTORY: Noncontributory. PHYSICAL EXAMINATION: VITAL SIGNS: Temperature 98.3, pulse rate of 81, blood pressure 141/76, respiratory rate 20, oxygen saturation 96% on room air. GENERAL: The patient is sitting up in bed in no acute distress. HEENT: Atraumatic. Extraocular muscles intact. Has left eye resection from left eye cancer. NECK: Supple, no JVD, no adenopathy noted. HEART: S1, S2, normal rate and rhythm. No murmurs, rubs, or gallops. ABDOMEN: Soft, nontender, nondistended. Bowel sounds are present. EXTREMITIES: No clubbing, no cyanosis. Peripheral pulses 2+ felt bilaterally. NEUROLOGIC: The patient is alert, oriented to person and place and year, has poor attention, slow th ought process. Recall after 5 minutes is 0/3. Has a flat affect, very tangential and loose associat ions of thoughts. Cranial nerves II through XII are intact. Motor exam: No pronator drift seen, sli ght increased tone throughout. Sensory exam: Decreased light touch and pinprick up to calves bilater ally. Decreased to vibration in the toes. DTRs 2+ throughout, 1 at the knees and ankles. Coordinati on: Trdqnu-sq-cslv is intact with eyes closed. Gait is deferred for now. LABORATORY DATA: Sodium is 139, potassium 4, chloride of 108, carbon dioxide of 27, BUN of 17, creat inine 1. Random glucose of 8.3. A1c is 4.7. ASSESSMENT AND PLAN: 1. This is an 86-year-old man with past medical history of colon cancer status post chemotherapy and resection, history of hypertension, history of left eye cancer status post resection, legally blind, who is here in the hospital with shortness of breath and chest pain, followed by cardiology. Echo s howed ejection fraction at 60%. Lower extremities showed no evidence of deep venous thrombosis. EKG showed ST changes. ProBNP is within normal limits. Chest x-ray is negative. Currently cardi ology recommendations. I was consulted for change in mental status for the past 2 weeks, becoming mor e agitated and more clumsy. His agitation is likely his cognitive impairment with behavioral disturb ance. Could consider low dose Seroquel 12.5 mg p.o. at bedtime and to get psychiatry's recommendatio ns. 2. Frequent orientation throughout the day and avoid nighttime interruptions. He needs proper adequ ate healthy heart diet and does have neuropathy from underlying history of cancer and chemotherapy, w hich could be the reason why he has poor gait, balance, and is clumsy. At this time, recommend physi clive therapy to help with his gait and balance and then continue with current present medical manageme nt in terms of his cardiac issues. No further neurological workup needed at this time. Possibly woul d benefit from coenzyme Q10 400 mg p.o. daily, alpha lipoic acid 600 mg p.o. daily and outpatient Nam enda XR 14 mg p.o. daily for underlying cognitive impairment. At this time, continue with current pr esent medical management. Thank you for this consult. Please reconsult if necessary. Will sign off. True Ferrara MD cc: [id number] TT: 07/09/2016 19:26:44 Confirmation # [id number] Dictation # [id number] ln
--- NOTE | 2016-07-09 22:11 | CARD ---
APPROVED REPORT Protocol: LEXISCAN Test Type: Lexiscan Sestamibi Stress Test Attending Physician: Dr. Keith Aponte Referring Physician: Dr. Clement Murillo Test Indications: Chest Pain Height:5 ft 11 in Weight:225lbs Medications: Norvas,Aspirin,Pepcid,Flomax Medical History: 86 y/o male. Hx of chest pain,hypertension, shortness of breath,former smoker,PVD,edema. Target HR: 133 bpm Resting ECG: RSR. RBBB.Prolonged SD. Resting Heart Rate: 67 bpm Resting Blood Pressure: 140/70mmHg Submaximum (85%): 113 bpm POST EXERCISE Reason for Termination: Protocol completed Target HR: No Max HR: 65 bpm 59% of Maximum Predicted HR: 133 bpm Exercise duration: 00:31 min:sec, 0 Stage Exercise capacity: 1.0METs Max Blood Pressure: 140/70mmHg Blood Pressure response to exercise: normal resting BP - appropriate response Heart Rate response to exercise: appropriate Chest Pain: No, none Angina index: 0 Arrhythmia: No, none ST Change: No, none Deviation: 0 mm INTERPRETATION Stress EKG Conclusion: IV LEXISCAN NUCLEAR STRESS TEST NEGATIVE FOR CHEST PAIN AND NEGATIVE FOR ST-T CHANGES. NUCLEAR SCAN REPORT PENDING. Signed by Keith Aponte Electronically Approved: 07/09/2016 12:50:05 EXAM: Myocardial Perfusion REST/STRESS Stress Test Type: Pharmacologic Imaging Protocol Rest Spect myocardial perfusion imaging was performed in supine position 60 minutes following the injection of 10.3 mCi of Tc-99 Myoview. At peak stress, the patient was injected intravenously with 30.5mCi of Tc-99 tetrofosmin after an infusion time of 0 minutes and 10 seconds. Gated Stress Spect was performed 65 minutes after intravenous Tc-99 Myoview injection. The images were gated to evaluate regional wall motion and calculate ventricular ejection fraction.Images were reconstructed using backfilter projection method in short horizontal and verticle long axis. Spect slices were generated. LV Perfusion The quality of the study is good. The left ventricle is within normal limits in size. The right ventricle is unremarkable. The lung uptake is normal. The distribution of tracer reveals an area of mildly decreased perfusion in the mid to distal anterior and moderately and diffusely decreased perfusion in the inferior wall on the stress study. The remainder of the LV myocardium is unremarkable. The rest myocardial perfusion study shows no significant change. Wall Motion Wall motion study shows good contractility of the left ventricle. LVEF = 60%. Conclusion 1. Probably abnormal SPECT myocardial perfusion study. 2. Mild, fixed, anterior defect is suggestive of myocardial injury. 3. Fixed, inferior and inferolateral defects are probably due to diaphragmatic attenuation. 4. Normlal gated wall motion of the left ventricle.
[2016-07-10 07:34] LABS: ADD MANUAL DIFF? NO
[2016-07-10 07:43] LABS: BASO # 0.02 K/mm3 (0.0-2.0); BASO % 0.6 % (0.0-3.0); EOS # 0.2 (0.0-0.7); GRAN # 1.52 (1.4-6.5); GRAN % 45.5 % (50.0-68.0); HEMATOCRIT 35.7 % (42.0-52.0); LYMPH # 1.3 (1.2-3.4); LYMPH % 37.4 % (22.0-35.0); MEAN CELL VOLUME 94.7 fL (80.0-105.0); MEAN CORPUSCULAR HEMOGLOBIN 31.8 pg (25.0-35.0); MEAN CORPUSCULAR HGB CONC 33.6 g/dl (31.0-37.0); MEAN PLATELET VOLUME 9.6 fl (7.0-11.0); MONO # 0.4 (0.1-0.6); MONO % 10.5 % (1.0-6.0); PLATELET COUNT 210 10^3/uL (120.0-450.0); RED CELL DISTRIBUTION WIDTH 12.6 % (11.5-14.5); WHITE BLOOD COUNT 3.3 10^3/ul (4.5-11.0)
[2016-07-10 07:57] LABS: BLOOD UREA NITROGEN 15 mg/dL (7-21); CALCIUM 9.2 mg/dL (8.4-10.5); CARBON DIOXIDE 27 mmol/L (21-33); CHLORIDE 104 mmol/L (95-110); GFR AFRICAN-AMERICAN > 60; GLUCOSE,RANDOM 85 mg/dL (70-110); POTASSIUM 3.7 mmol/L (3.6-5.0); SODIUM 140 mmol/L (132-148)
--- NOTE | 2016-07-10 13:27 | CON ---
DATE: 07/10/2016 HISTORY OF PRESENT ILLNESS: The patient is an 86-year-old -[place] male with no formal psych iatric history, who was consulted by the medical team to psychiatry due to patient's change in mental status for the last 2 weeks. Notes indicate that patient has been more difficult, more difficult to direct and more aggressive towards women, as well as more clumsy, lately bumping into stuff. I met with patient at bedside and he is alert due to the fact that he is at [facility] an d that it is 06/2016. He is generally pleasant, but can be brutal. The patient makes frequent jokes and he is hard of hearing and questioning me for repetition, not only because of his difficulty heari ng, but also because of his comprehension. The patient can be forgetful during the course of this in [facility], but generally consistently reports that he has been feeling a little down lately, but genera lly is enjoying life and has actually no thoughts of harming himself or wanting to . He denies pearson ving any hallucinations and delusions were not elicited. Regarding stressors, he does admit that he lost his over a year ago and thought he was dealing with it well; however, has been noticing mor e and more that he has been missing her more and more. He is hopeful about things and indicate s that "honest to goodness" he wants to live and is enjoying life. The patient jokes frequently. Hi s jokes can be quite humorous conversation; however, this provider does note that he is forgetf ul and evades some questions that he does not know the responses to. Regarding his aggression toward other females, he does indicate that it is very hard to be in a home "full of women." He does indic ate that multiple times in the course of our conversation, but denies having any thoughts of harming anybody or wanting to harm anybody. I consider his insight and judgment impaired due to his forgetfu lness and some inconsistency in responses. VITAL SIGNS AND LABORATORIES: Reviewed. The patient was not started on any relevant psychiatric medications. PSYCHIATRIC HISTORY: The patient denies any psychiatric admissions or suicide attempts or psychiatri c medication management. SOCIAL HISTORY: The patient is , lost his in 02/2015. The patient resides with his [facility] and other female family members. The patient reports that with his he has 5 sons and 4 daug hters. He denies any history of drug or alcohol use. The patient is retired. 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 IMPRESSION: Due to the acuity of patient's mental status changes, I cannot rule out delirium and in a much older gentlemen like this, even a minor medical insult can contribute to patient's confusion a nd aggression. Delirium may take weeks to resolve even after the initial medical insult is improved. I cannot rule out the presence of dementia at this time either, as well as age-related cognitive de chua. Can also consider pseudodementia as patient does report some low mood due to the of his in the past year or so. RECOMMENDATIONS: At this time, I agree with having neurology follow up with patient. The patient mi ght benefit from a medication for dementia. For aggression, I will put Haldol 0.25 mg p.o. q. 6 hour s p.r.n.; however, he does appear to be fairly in control. Would continue Haldol at this time until diagnosis is fully elucidated, whether it be delirium in which the Haldol would be beneficial on a te mporary basis, or if it is mostly dementia, the Haldol can be beneficial on an outpatient basis. Marlo arboleda, psychiatry will continue to follow up with patient. He does not want to start an antidepres mychal at this time and we will continue to monitor his mental status. As there is uncertainty in the etiology of the patient's change in mental status, I do not feel comfortable with patient being psych iatrically cleared for discharge at this time, as he might still be presenting with symptoms of delir ium and requires 1:1, as he cannot follow directions for his own safety on the hospital floor. As me ntioned, psychiatry will continue to follow up with patient and monitor his mental status. Miguel A Ramon MD cc: [id number] TT: 07/10/2016 13:26:31 Confirmation # [id number] Dictation # [id number] rn
--- NOTE | 2016-07-10 21:04 | CP.PCM.PN ---
<Edmund Dodson - Last Filed: 07/10/16 20:54> Subjective - Date & Time of Evaluation Date of Evaluation: 07/10/16 Time of Evaluation: 08:20 - Subjective Subjective: HOSPITALISTS PROGRESS NOTE Pt is seen and examined at bedside. No acute events overnight. Patient state he slept well and had no complaints. He denies having any chest pain, SOB, abd pain, N/V/D/C. Daughter not present to determine if pt. is at baseline or not. Objective - Vital Signs/Intake and Output Vital Signs (last 24 hours): Temp Pulse Resp BP Pulse Ox 98.1 F 68 18 142/87 97 07/10/16 16:45 07/10/16 16:45 07/10/16 16:45 07/10/16 16:45 07/10/16 05:51 Intake and Output: 07/10/16 07/11/16 18:59 06:59 Intake Total 1220 Balance 1220 - Medications Medications: Current Medications Aspirin (Aspirin Chewable) 81 mg PO DAILY [facility] Last Admin: 07/10/16 10:23 Dose: 81 mg Famotidine (Pepcid) 20 mg PO DAILY [facility] Last Admin: 07/10/16 10:23 Dose: 20 mg Haloperidol (Haldol) 0.25 mg PO Q6 PRN; Protocol PRN Reason: Agitation Hydrochlorothiazide (Microzide) 12.5 mg PO DAILY [facility] Last Admin: 07/10/16 10:23 Dose: 12.5 mg Ondansetron HCl (Zofran Inj) 4 mg IVP Q6 PRN PRN Reason: Nausea/Vomiting Tamsulosin HCl (Flomax) 0.4 mg PO DAILY [facility] Last Admin: 07/10/16 10:23 Dose: 0.4 mg - Labs Labs: 07/10/16 07:00 07/10/16 07:00 PT 10.9 Seconds (9.9-11.8) 07/09/16 07:00 INR 1.01 (0.93-1.08) 07/09/16 07:00 APTT 30.1 Seconds (23.7-30.8) 07/09/16 07:00 - Constitutional Appears: Non-toxic, No Acute Distress - Head Exam Head Exam: ATRAUMATIC - Eye Exam Eye Exam: EOMI - ENT Exam ENT Exam: Mucous Membranes Moist - Respiratory Exam Respiratory Exam: Clear to Ausculation Bilateral, NORMAL BREATHING PATTERN. absent: Rales, Rhonchi, Wheezes - Cardiovascular Exam Cardiovascular Exam: REGULAR RHYTHM, +S1, +S2. absent: Gallop, Rubs, Murmur Additional comments: left sided tenderness to palpation - GI/Abdominal Exam GI & Abdominal Exam: Soft, Normal Bowel Sounds. absent: Distended, Firm, Guarding, Rigid, Tenderness - Extremities Exam Extremities Exam: absent: Pedal Edema, Tenderness - Neurological Exam Neurological Exam: Alert, Awake, Oriented x3 - Psychiatric Exam Psychiatric exam: Normal Affect, Normal Mood - Skin Skin Exam: Dry, Intact, Normal Color, Warm Assessment and Plan - Assessment and Plan (Free Text) Assessment: 86yo M with PMHx of HTN, Colon CA s/p chemo and resection, L Eye CA s/p resection here for evaluation of SOB and CP. Plan: 1. Chest pain Cardiology, Dr. Hardy, is consulted. appreciate recs -Cardiac Stress Test - please see full report -Probably Abnormal SPECT study -Fixed defect Ant & Ant Lat -ECHO EF 60% - please see full report TSH, lipid panel and HgbA1c are WNL d/c tele, transfer to med/surg ASA 81 daily 2. AMS x 2 weeks f/u with daughter to see if pt. is at baseline CT of head without contrast - please see full report -No Acute Intracranial Hemorrhage Psych, Dr. Ramon is consulted -agrees with Neuro to start Haldol PRN -might still be presenting with symptoms of delerium, cont 1:1 -will continue to follow Neurology, Dr. Ferrara is consulted. -agitation likely his congnitive impairment with behavioral disturbance -Seroquel 12.5mg PO HS -rec on d/c -coenzyme Q10 400mg PO daily -alpha lipoic acid 600mg po daily -Namenda XR 14mg po daily -cont current mgmt - sign off 3. Lower extremity edema LE doppler US is negative for DVT continue to monitor Strict I&Os Fall precautions 4. Hx of HTN Patient is switched to HCTZ 12.5 mg po qd. Stopped norvasc due to LE swelling. 5. PPx SCDs Famotidine 20mg PO Daily Discussed case with attending Dr. Randall <Sherri Randall - Last Filed: 07/19/16 13:29> Objective - Vital Signs/Intake and Output Vital Signs (last 24 hours): Temp Pulse Resp BP Pulse Ox 97.9 F 71 20 136/73 95 07/11/16 17:02 07/11/16 17:02 07/11/16 17:02 07/11/16 17:02 07/11/16 06:00 Intake and Output: 07/11/16 07/11/16 06:59 18:59 Intake Total 660 1200 Output Total 1500 550 Balance -840 650 - Medications Medications: Current Medications Aspirin (Aspirin Chewable) 81 mg PO DAILY [facility] Last Admin: 07/11/16 09:29 Dose: 81 mg Famotidine (Pepcid) 20 mg PO DAILY [facility] Last Admin: 07/11/16 09:29 Dose: 20 mg Haloperidol (Haldol) 0.25 mg PO Q6 PRN; Protocol PRN Reason: Agitation Hydrochlorothiazide (Microzide) 12.5 mg PO DAILY [facility] Last Admin: 07/11/16 09:29 Dose: 12.5 mg Ondansetron HCl (Zofran Inj) 4 mg IVP Q6 PRN PRN Reason: Nausea/Vomiting Quetiapine Fumarate (Seroquel) 12.5 mg PO HS NOE PRN Reason: Protocol Last Admin: 07/10/16 21:34 Dose: 12.5 mg Tamsulosin HCl (Flomax) 0.4 mg PO DAILY [facility] Last Admin: 07/11/16 09:29 Dose: 0.4 mg - Labs Labs: 07/11/16 07:40 07/11/16 07:40 PT 10.9 Seconds (9.9-11.8) 07/09/16 07:00 INR 1.01 (0.93-1.08) 07/09/16 07:00 APTT 30.1 Seconds (23.7-30.8) 07/09/16 07:00 Attending/Attestation - Attestation I have personally seen and examined this patient.: Yes I have fully participated in the care of the patient.: Yes I have reviewed all pertinent clinical information, including history, physical exam and plan: Yes Notes (Text): I have seen and examined this patient at bedside. This is 86 year old male with history of HTN, former smoker, colon cancer s/p resection & chemo, left eye cancer s/p resection who got admitted for evaluation of chest pain which is most likely musculoskeletal in origin. Serial troponin and ekg was within normal limits. Given the risk factors, patient underwent stress test which showed fixed defect. As per patients daughter, patient has been having periods of confusion and aggression toward females. Neuro and psych on board. Patient has mild cognitive impairment. Recommended coenzyme q10, alpha lipoic acid and namenda. Psych recommended to continue 1:[address] and [address] head is negative. Patient is currently alert, awake and oriented. LE swelling has improved. LE duplex is negative. Upon discharge patient will follow up with Dr Vale. Dr Sherri Randall
[2016-07-11 01:56] VITALS: RESP 20
[2016-07-11 06:03] VITALS: O2SAT 95
[2016-07-11 07:53] LABS: ADD MANUAL DIFF? NO
[2016-07-11 08:25] LABS: ALKALINE PHOSPHATASE 44 U/L (38-133); ALT/SGPT 33 U/L (7-56); AST/SGOT 27 U/L (15-59); BLOOD UREA NITROGEN 15 mg/dL (7-21); CALCIUM 9.7 mg/dL (8.4-10.5); CARBON DIOXIDE 29 mmol/L (21-33); CHLORIDE 104 mmol/L (98-107); GFR AFRICAN-AMERICAN > 60; GLUCOSE,RANDOM 84 mg/dL (70-110); POTASSIUM 4.3 mmol/L (3.6-5.0); SODIUM 139 mmol/L (132-148); TOTAL PROTEIN 7.2 g/dL (5.8-8.3)
[2016-07-11 08:31] LABS: BASO # 0.01 K/mm3 (0.0-2.0); BASO % 0.2 % (0.0-3.0); EOS # 0.2 (0.0-0.7); EOS % 4.9 % (1.5-5.0); GRAN % 43.9 % (50.0-68.0); HEMATOCRIT 35.5 % (42.0-52.0); LYMPH # 1.7 (1.2-3.4); LYMPH % 41.5 % (22.0-35.0); MEAN CELL VOLUME 95.2 fL (80.0-105.0); MEAN CORPUSCULAR HEMOGLOBIN 32.4 pg (25.0-35.0); MEAN CORPUSCULAR HGB CONC 34.1 g/dl (31.0-37.0); MEAN PLATELET VOLUME 9.7 fl (7.0-11.0); MONO # 0.4 (0.1-0.6); MONO % 9.5 % (1.0-6.0); PLATELET COUNT 213 10^3/uL (120.0-450.0); RED CELL DISTRIBUTION WIDTH 12.6 % (11.5-14.5); WHITE BLOOD COUNT 4.1 10^3/ul (4.5-11.0)
[2016-07-11 11:53] VITALS: PULSE 71
--- NOTE | 2016-07-11 14:46 | CP.PCM.PN ---
<Edmund Dodson - Last Filed: 07/11/16 14:42> Subjective - Date & Time of Evaluation Date of Evaluation: 07/11/16 Time of Evaluation: 08:10 - Subjective Subjective: HOSPITALISTS PROGRESS NOTE Pt is seen and examined at bedside. No acute events overnight. Patient state he slept well and had no complaints. He was comfortable and talking to the female aid in the room telling stories about his children. The daughter's concern of him being aggressive towards females was not observed during this interaction. Follow up conversation with the daughter over the phone, she stated it sounded like he was at his baseline. She also stated that at his baseline he is paranoid that family members with whom he lives with, have taken things from him. He denies having any chest pain, SOB, abd pain, N/V/D/C. Objective - Vital Signs/Intake and Output Vital Signs (last 24 hours): Temp Pulse Resp BP Pulse Ox 97.5 F L 71 20 135/76 95 07/11/16 11:51 07/11/16 11:51 07/11/16 11:51 07/11/16 11:51 07/11/16 06:00 Intake and Output: 07/11/16 07/11/16 06:59 18:59 Intake Total 660 Output Total 1500 Balance -840 - Medications Medications: Current Medications Aspirin (Aspirin Chewable) 81 mg PO DAILY [facility] Last Admin: 07/11/16 09:29 Dose: 81 mg Famotidine (Pepcid) 20 mg PO DAILY [facility] Last Admin: 07/11/16 09:29 Dose: 20 mg Haloperidol (Haldol) 0.25 mg PO Q6 PRN; Protocol PRN Reason: Agitation Hydrochlorothiazide (Microzide) 12.5 mg PO DAILY [facility] Last Admin: 07/11/16 09:29 Dose: 12.5 mg Ondansetron HCl (Zofran Inj) 4 mg IVP Q6 PRN PRN Reason: Nausea/Vomiting Quetiapine Fumarate (Seroquel) 12.5 mg PO HS [facility] PRN Reason: Protocol Last Admin: 07/10/16 21:34 Dose: 12.5 mg Tamsulosin HCl (Flomax) 0.4 mg PO DAILY [facility] Last Admin: 07/11/16 09:29 Dose: 0.4 mg - Labs Labs: 07/11/16 07:40 07/11/16 07:40 PT 10.9 Seconds (9.9-11.8) 07/09/16 07:00 INR 1.01 (0.93-1.08) 07/09/16 07:00 APTT 30.1 Seconds (23.7-30.8) 07/09/16 07:00 - Constitutional Appears: Non-toxic, No Acute Distress - Head Exam Head Exam: ATRAUMATIC, NORMOCEPHALIC - Eye Exam Additional comments: legally blind, 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 absent: Lymphadenopathy, Thyromegaly - Respiratory Exam Respiratory Exam: Clear to Ausculation Bilateral, NORMAL BREATHING PATTERN - Cardiovascular Exam Cardiovascular Exam: REGULAR RHYTHM, +S1, +S2. absent: JVD - GI/Abdominal Exam GI & Abdominal Exam: Soft, Normal Bowel Sounds. absent: Tenderness - Extremities Exam Extremities Exam: absent: Joint Swelling, Pedal Edema - Back Exam Back Exam: tenderness (lumbar region). absent: rash noted - Neurological Exam Neurological Exam: Alert, Awake - Psychiatric Exam Psychiatric exam: Normal Affect, Normal Mood - Skin Skin Exam: Dry, Intact, Normal Color, Warm Assessment and Plan - Assessment and Plan (Free Text) Assessment: 86yo M with PMHx of HTN, Colon CA s/p chemo and resection, L Eye CA s/p resection here for evaluation of SOB and CP. Plan: 1. Chest pain Cardiology, Dr. Hardy, is consulted. appreciate recs -Cardiac Stress Test - please see full report -Probably Abnormal SPECT study -Fixed defect Ant & Ant Lat -ECHO EF 60% - please see full report TSH, lipid panel and HgbA1c are WNL d/c tele, transfer to med/surg ASA 81 daily 2. AMS x 2 weeks f/u with daughter to see if pt. is at baseline -per daughter, pt. is most likely at baseline, will be in the hospital on Tuesday CT of head without contrast - please see full report -No Acute Intracranial Hemorrhage Psych, Dr. Ramon is consulted -agrees with Neuro to start Haldol PRN -might still be presenting with symptoms of delerium, cont 1:1 -will continue to follow Neurology, Dr. Ferrara is consulted. -agitation likely his congnitive impairment with behavioral disturbance -Seroquel 12.5mg PO HS -rec on d/c -coenzyme Q10 400mg PO daily -alpha lipoic acid 600mg po daily -Namenda XR 14mg po daily -cont current mgmt - sign off 3. Lower extremity edema LE doppler US is negative for DVT continue to monitor Strict I&Os Fall precautions 4. Hx of HTN Patient is switched to HCTZ 12.5 mg po qd. Stopped norvasc due to LE swelling. 5. PPx SCDs Famotidine 20mg PO Daily Discussed case with attending Dr. Randall <Sherri Randall - Last Filed: 07/19/16 13:27> Objective - Vital Signs/Intake and Output Vital Signs (last 24 hours): Temp Pulse Resp BP Pulse Ox 97.9 F 71 20 136/73 95 07/11/16 17:02 07/11/16 17:02 07/11/16 17:02 07/11/16 17:02 07/11/16 06:00 - Labs Labs: 07/12/16 09:45 07/12/16 09:45 PT 10.9 Seconds (9.9-11.8) 07/09/16 07:00 INR 1.01 (0.93-1.08) 07/09/16 07:00 APTT 30.1 Seconds (23.7-30.8) 07/09/16 07:00 Attending/Attestation - Attestation I have personally seen and examined this patient.: Yes I have fully participated in the care of the patient.: Yes I have reviewed all pertinent clinical information, including history, physical exam and plan: Yes Notes (Text): I have seen and examined patient with the resident. Agree with the note above with the following additions/ exceptions: This is a 86 year old male with history of HTN, former smoker, colon cancer s/p resection & chemo, left eye cancer s/p resection who got admitted for evaluation of chest pain which is most likely musculoskeletal in origin. Serial troponin and ekg was within normal limits. Cardiology evaluation with Dr. Hardy appreciated. Stress test showed fixed defect. As per patients daughter, patient has been having periods of confusion and aggression toward females. Neuro and psych on board. Patient has mild cognitive impairment. Recommended coenzyme q10, alpha lipoic acid and namenda. Psych recommended to keep the patient overnight to assess symptoms of delirium. Called the daughter who advised us that she will not be able to come to the hospital today to assess whether patient is at baseline or not. CT head is negative. Patient is currently alert, awake and oriented. LE swelling has improved. LE duplex is negative. Upon discharge patient will follow up with Dr Vale. Dr Sherri Randall
[2016-07-11 17:02] VITALS: BP 136/73; TEMP 97.9
--- NOTE | 2016-07-12 08:46 | CON ---
DATE: 07/11/2016 The patient is an 86-year-old male with no formal psychiatric history who was consul derrell by medical team to psychiatry due to the patient's change in mental status for the last 2 weeks. Social work notes indicate that daughter reported that the patient had been more difficult to direct and more aggressive towards women, as well as more clumsy at home. I met with the patient at bedside yesterday and today, and he continues to be generally pleasant and cooperative with my questioning. Please note the dictated note from 07/10/2016 indicated that the pat clare can be "brutal." This is not what this provider dictated. He is humorous. He makes frequent j okes, and he is hard of hearing, which requires me to question him repeatedly to have a productive co nversation with him. He can be a little forgetful during the course of the interview, but generally, consistent regarding his self-evaluation of wellbeing. He indicates that he is generally feeling ok ay and hopeful, but had been enjoying life, and has no thoughts of wanting to or harm himself. H e denied having any hallucinations, and delusions were not elicited. I reviewed recent staff notes that indicated that the patient was agitated last night and did not wan t to move rooms, and had refused to be moved from his current patient room. I discussed this inciden t with the patient this morning, and the patient indicates that he was given a choice of moving and n ot moving, and he made a choice to not move. The patient indicates "I wasn't fussing - that's the go spel." The patient consistently indicates that he was not trying to be difficult last night, and it is unclear to this provider what actually transpired during this incident. The patient has a tendenc y to be rambling, but can be redirected. The patient reports that he slept well, denies any side eff ects with the medication like in Seroquel that was started by neurology yesterday. Of question is whether the patient can be discharged home. It is unclear whether the patient can ca re for himself since the request for the consult was vague - indicated that the patient has only been difficult to direct and has been a little bit more aggressive with the family members. It has been indicated that the patient did show a change in mental status and behavior in the last 2 weeks, which seems consistent with delirium, as such an acute change in mental status is not associated with belgica ntia, as dementia has more insidious onset. I cannot rule out dementia and age-related cognitive dec line contributing to the patient's presentation of forgetfulness at times. During our conversation today, the patient is quite aware of the necessity to groom himself, to take his medications correctly, to elicit medical care when needed, and he also was aware of the importanc e of finances. The patient was oriented, and he recalled me from my visit yesterday, and he also wis hed me a happy mother's day, as he recalled that I was currently . His insight and judgment are considered to be fair at this time. However, again, it is unclear wheth er he is still suffering from delirium, as this can have a waxing and waning presentation. VITAL SIGNS AND LABORATORIES: Reviewed. CURRENT RELEVANT PSYCHIATRIC MEDICATIONS: Include Haldol 0.25 mg p.o. q. 6 p.r.n. of which the debi nt did not receive any doses yesterday, as well as Seroquel 12.5 mg p.o. at bedtime, which the karlie t tolerated well last night. 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 Delirium appears to be the intuitive etiology for the patient's change in behavior, as this can present suddenly as opposed to dementia, which pres ents insidiously. The patient also reports that he has had difficulty "holding his urine" recently, and you cannot rule out the presence of urinary tract infection contributing to his presentation. RECOMMENDATION: At this time, I would recommend that medical team meet with social work and the zelalem frank's daughter to fully elucidate the patient's functioning and provide more information to determine whether he can be discharged and what the daughter's specific concerns were. Specifically, has the patient been threatening family members, has the patient been physically threatening towards family m embers, has the patient been able to groom himself, handle his finances. Has family been observing t he patient to hallucinate or talk to himself or be illogical. What was the specific pattern of beha viors that changed in the last 2 weeks, and specifically, does the daughter feel that this has improv ed, which would indicate a complete resolution of the patient's delirious state ____. Until this is done, it is very difficult for psychiatry to determine whether the patient is safe for discharge sin e the reason for the initial consult was vague to begin with. Psychiatry will continue to follow up with the patient and medical team to obtain this collateral, and we are awaiting this collateral info rmation. Miguel A Ramon MD cc: [id number] TT: 07/11/2016 10:44:31 Confirmation # [id number] Dictation # [id number] bridget
[2016-07-12 10:12] LABS: ADD MANUAL DIFF? NO
[2016-07-12 10:15] LABS: BASO # 0.02 K/mm3 (0.0-2.0); BASO % 0.5 % (0.0-3.0); EOS # 0.2 (0.0-0.7); EOS % 5.7 % (1.5-5.0); GRAN # 1.82 (1.4-6.5); GRAN % 44.6 % (50.0-68.0); HEMATOCRIT 34.2 % (42.0-52.0); LYMPH # 1.6 (1.2-3.4); LYMPH % 39.1 % (22.0-35.0); MEAN CELL VOLUME 95.8 fL (80.0-105.0); MEAN CORPUSCULAR HEMOGLOBIN 32.5 pg (25.0-35.0); MEAN CORPUSCULAR HGB CONC 33.9 g/dl (31.0-37.0); MEAN PLATELET VOLUME 9.6 fl (7.0-11.0); MONO # 0.4 (0.1-0.6); MONO % 10.1 % (1.0-6.0); PLATELET COUNT 220 10^3/uL (120.0-450.0); RED CELL DISTRIBUTION WIDTH 12.8 % (11.5-14.5); WHITE BLOOD COUNT 4.1 10^3/ul (4.5-11.0)
[2016-07-12 10:23] LABS: ALKALINE PHOSPHATASE 40 U/L (38-133); ALT/SGPT 33 U/L (7-56); AST/SGOT 18 U/L (15-59); BILIRUBIN,TOTAL 0.9 mg/dL (0.2-1.3); BLOOD UREA NITROGEN 20 mg/dL (7-21); CALCIUM 9.5 mg/dL (8.4-10.5); CARBON DIOXIDE 28 mmol/L (21-33); CHLORIDE 101 mmol/L (98-107); GFR AFRICAN-AMERICAN > 60; GLUCOSE,RANDOM 108 mg/dL (70-110); POTASSIUM 3.9 mmol/L (3.6-5.0); SODIUM 137 mmol/L (132-148); TOTAL PROTEIN 6.9 g/dL (5.8-8.3)
--- NOTE | 2016-07-12 11:07 | PN ---
DATE: 07/12/2016 Shortly, patient is an 86-year-old -[place] male with not known psychiatric history. The jovani ient was admitted on the medical side for evaluation of change in mental status for the past 2 weeks. Psych consult was called for evaluation of "being difficult in the house." As per Dr. Ramon, debi devlin also was more aggressive towards women as well as more clumsy at home. The patient was seen by Dr Saleem Ramon over the weekend. This newswriter reviewed previous notes. Labs reviewed. The patient was eval uated. As per Dr. Ramon's recommendations, it was recommended that family should be involved and col lateral information from the patient's family needs to be obtained. For example, what kind of baseli ne level of functioning patient had before, also if any aggression or agitation towards any family me mbers, as well as if any difficulty to manage finances, being lost in the community as well as any dr ugs involved into the patient's life as well as if patient's mental status is improved over the weeke nd. The patient was seen and examined. The patient presented to be alert, pleasant and superficiall y cooperative. The patient's thought process seems to be illogical. The patient was telling that hi s [id number] had open heart surgery. The patient's daughter also had open heart surgery. When this newswriter asked if anybody else out had open heart surgery, patient said only 2 of them. The debi nt also has illogical thought process, was rambling, but at the same time, could be directed. The pa tient currently is on 1:1. As per 1:1, there is no agitation, no aggression. The patient has fair a ppetite. No psychotic symptoms. VITAL SIGNS: Reviewed. Temperature 97.9, pulse is 71, blood pressure 136/73, respirations 20, oxyge n saturation is 95%. MEDICATIONS: Reviewed. The patient is on aspirin, Pepcid, Haldol 0.25 mg p.o. q. 6 hours as needed for agitation. The patient was not agitated and not even 1 dose was given to the patient. The debi nt is on Microzide 12.5 mg daily, Zofran, Seroquel 12.5 mg at the nighttime by medical team. The jovani ient is on Flomax as well. LABORATORIES: Reviewed. WBC cells 4.0, hemoglobin 11.6, hematocrit 34.2, absolute neutrophil count within normal limits. Coagulation within normal limits. Chemistry seems to be within normal limits. As per medical team note, patient was visited by his daughter and yesterday, patient deemed to be at his baseline. MENTAL STATUS EXAMINATION: The patient appears to be alert. The patient knows that he is in [facility], but is not aware of the circumstances of his admission on the medical side. The patient i s legally blind. Speech was rambling as well as low volume. Thought process is circumstantial. Tho ught content: The patient denied visual, auditory, tactile hallucinations, denied paranoid ideation, denied thoughts of killing himself, denied thoughts of killing others. Mood described, "I feel fine ." Affect expanded, at times patient smiles inappropriately. Insight and judgment improving. Impul ses are well controlled. IMPRESSION: Change in mental status for the past 2 weeks, could be related to the medical condition and based on history. Over the weekend, patient's daughter said that most likely patient is at his b aseline. Mild cognitive deficit cannot be excluded or early stage of dementia cannot be excluded eit her. Dr. Ramon had impression that patient was delirious. This newswriter cannot exclude this diagnosis as well. As per medical team, patient had chest pain. Combination Window Installer was involved as well as altered mental status. CT scan of the head was within normal limits. The patient was seen by Dr. Ferrara. The patient was started on Namenda and neurologist signed off. The patient also has lower extremity edema as well as history of hypertension. PLAN: As per medical team, daughter confirmed that patient is at his baseline and if patient deemed ready for discharge from the medical standpoint, there is no point to transfer patient to the psychia tric inpatient unit because patient is not depressed. The patient is not suicidal. The patient is n ot homicidal. No psychotic symptoms observed or reported and patient deemed to be at his baseline. On top of that, patient was started on Seroquel by neurology and there is no objection to continue th at. Namenda should be continued. Coenzyme Q10 should be continued. From this newswriter's perspective, patient does not meet the criteria to go to the psychiatric inpatient unit. The patient is pleasant and cooperative. No behavioral disturbances. This newswriter will sign off. Social work evaluation re commended. Please advise family to initiate power of employment law attorney as well as advanced directives in the future. Should have any questions, give me a call back. Thank you very much for letting me participate in care of your patient. Rosa Lyn MD cc: [id number] TT: 07/12/2016 11:07:17 Confirmation # [id number] Dictation # [id number] en
--- NOTE | 2016-07-12 13:36 | PN ---
DATE: 07/12/2016 The patient in room 561, bed 1. REASON FOR CONSULTATION: Chest pain and shortness of breath. HISTORY OF PRESENT ILLNESS: The patient an 86-year-old male, legally blind, admitted with a history that he got episode of sharp chest pain followed by shortness of breath. He does get shortness of br eath on exertion previously also but denied having any chest pain in the past on exertion. 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 The patient lying flat in bed without chest pain, shortness of breath, or palpitation. The patient's stress test on 07/09/2016 showed fixed defect without any ischemia and normal LV ejection fraction of 60%. Stress test was done on 07/09/2016. Same day patient also had e chocardiogram, which showed normal LV, mild concentric LVH, EF 60% to 65%, trace aortic regurgitation , mild mitral regurgitation, mild tricuspid regurgitation, RVSP 29 mmHg, trace pulmonic regurg. The patient now symptom free, lying flat in bed without any complaints. PHYSICAL EXAMINATION: VITAL SIGNS: Blood pressure 136/73, respirations 20, pulse 71, temperature 97.9. HEAD: Normocephalic. EYES: Pupils normal. Conjunctivae slightly pale. NECK: JVP low. Carotid equal. THORAX: AP diameter normal. LUNGS: Clear. CARDIOVASCULAR: S1, S2. ABDOMEN: Soft, no tenderness, no organomegaly. Bowel sounds normal. EXTREMITIES: No clubbing, no cyanosis. LABORATORY DATA: WBC 4.1, hemoglobin 11.6, hematocrit 34.2, platelet 220. Sodium 137, potassium 3.9 , BUN 20, creatinine 1.3. AST, ALT normal. Total protein and albumin normal. DIAGNOSES: Chest pain, shortness of breath on exertion, hypertension, legally blind. Negative stres s test. Echo, no significant abnormality. PLAN: The patient on aspirin 81 mg daily, Flomax 0.4 daily, hydrochlorothiazide 12.5 mg p.o. daily, Pepcid 20 mg daily. We will continue present therapy. We will follow with you. Keith Aponte MD cc: [id number] TT: 07/12/2016 13:35:38 Confirmation # [id number] Dictation # [id number]
--- NOTE | 2016-07-12 13:56 | CP.PCM.DIS ---
<Alejandra Gill - Last Filed: 07/12/16 14:44> Provider - Provider Date of Admission: 07/09/16 17:03 Attending physician: Delbert Johnson MD Primary care physician: Clement Murillo MD Consults: Cardio: Antony Neuro: Josias Psych: Dr. Ramon Time Spent in preparation of Discharge (in minutes): 45 Hospital Course - Lab Results Lab Results: Most Recent Lab Values WBC 4.1 10^3/ul (4.5-11.0) L 07/12/16 09:45 RBC 3.57 10^6/uL (3.5-6.1) 07/12/16 09:45 Hgb 11.6 gm/dL (14.0-18.0) L 07/12/16 09:45 Hct 34.2 % (42.0-52.0) L 07/12/16 09:45 MCV 95.8 fL (80.0-105.0) 07/12/16 09:45 MCH 32.5 pg (25.0-35.0) 07/12/16 09:45 MCHC 33.9 g/dl (31.0-37.0) 07/12/16 09:45 RDW 12.8 % (11.5-14.5) 07/12/16 09:45 Plt Count 220 10^3/uL (120.0-450.0) 07/12/16 09:45 MPV 9.6 fl (7.0-11.0) 07/12/16 09:45 Gran % 44.6 % (50.0-68.0) L 07/12/16 09:45 Lymph % (Auto) 39.1 % (22.0-35.0) H 07/12/16 09:45 [place]wey % (Auto) 10.1 % (1.0-6.0) H 07/12/16 09:45 Eos % (Auto) 5.7 % (1.5-5.0) H 07/12/16 09:45 Baso % (Auto) 0.5 % (0.0-3.0) 07/12/16 09:45 Gran # 1.82 (1.4-6.5) 07/12/16 09:45 Lymph # 1.6 (1.2-3.4) 07/12/16 09:45 Dewey # 0.4 (0.1-0.6) 07/12/16 09:45 Eos # 0.2 (0.0-0.7) 07/12/16 09:45 Baso # 0.02 K/mm3 (0.0-2.0) 07/12/16 09:45 PT 10.9 Seconds (9.9-11.8) 07/09/16 07:00 INR 1.01 (0.93-1.08) 07/09/16 07:00 APTT 30.1 Seconds (23.7-30.8) 07/09/16 07:00 Sodium 137 mmol/L (132-148) 07/12/16 09:45 Potassium 3.9 mmol/L (3.6-5.0) 07/12/16 09:45 Chloride 101 mmol/L (98-107) 07/12/16 09:45 Carbon Dioxide 28 mmol/L (21-33) 07/12/16 09:45 Anion Gap 12 (10-20) 07/12/16 09:45 BUN 20 mg/dL (7-21) 07/12/16 09:45 Creatinine 1.3 mg/dL (0.5-1.4) 07/12/16 09:45 Est GFR ( Amer) > 60 07/12/16 09:45 Est GFR (Non-Af Amer) 52 07/12/16 09:45 Random Glucose 108 mg/dL (70-110) 07/12/16 09:45 Hemoglobin A1c 4.7 % (4.2-6.5) 07/09/16 07:00 Calcium 9.5 mg/dL (8.4-10.5) 07/12/16 09:45 Total Bilirubin 0.9 mg/dL (0.2-1.3) 07/12/16 09:45 AST 18 U/L (15-59) 07/12/16 09:45 ALT 33 U/L (7-56) 07/12/16 09:45 Alkaline Phosphatase 40 U/L (38-133) 07/12/16 09:45 Lactate Dehydrogenase 417 U/L (333-699) 07/08/16 16:17 Total Creatine Kinase 76 U/L (35-230) 07/08/16 16:17 Troponin I < 0.01 ng/mL 07/09/16 12:44 NT-Pro-B Natriuret Pep 59.7 pg/mL (0-450) 07/08/16 16:17 Total Protein 6.9 g/dL (5.8-8.3) 07/12/16 09:45 Albumin 3.5 g/dL (3.0-4.8) 07/12/16 09:45 Globulin 3.4 gm/dL 07/12/16 09:45 Albumin/Globulin Ratio 1.0 (1.1-1.8) L 07/12/16 09:45 Triglycerides 82 mg/dL (35-160) 07/09/16 07:00 Cholesterol 199 mg/dL (130-200) 07/09/16 07:00 LDL Cholesterol Direct 118 mg/dL (0-129) 07/09/16 07:00 HDL Cholesterol 48 mg/dL (29-60) 07/09/16 07:00 TSH 3rd Generation 0.83 mIU/mL (0.46-4.68) 07/09/16 07:00 - Hospital Course Hospital Course: 86yo M with PMHx of HTN, Colon CA s/p resection, Eye CA s/p L eye resection here for evaluation of chest pain. Patient was at home when he was lifting a heavy object and experienced a left sided chest and shoulder pain with shortness of breath. Pain lasted about 20mins and has since resolved. Pain radiated to the left shoulder. At its worst, pain was 7/10. He has never experienced a pain such as this before. No exacerbating or remitting factors. He states that he has been increasingly more short of breath over the past week. He also noticed bilateral lower extremity edema but is unsure when it started. He is ambulatory with cane and assistance with home health aide. Denies diaphoresis. Denies N/V/D. No Abd pain. No F/C. No Headache. No urinary complaints. On admission, CXR was negative for acute disease. Troponins x 3 were also negative and EKG was unremarkable. Cardiology was consulted and recommended echo. Echo showed EF of 60-65% with mild LVH (see full report). Patient also had a stress test which showed mild, fixed anterior defect suggestive of myocardial injury. Cardiology recommended outpatient follow up for this. Patient also had lower extremity swelling on presentation. LE doppler US were negative for DVT. During hospital stay, patient's daughters stated that patient is not at baseline mentally and he has been more clumsy lately. CT of head was done which showed no acute changes. Neurology was consulted and recommended continuing physical therapy and recommended Coq10 400 mg po qd, Namenda xr 14 mg po qd, and seroquel 12.5 mg po qd. Psych was also consulted and stated that since patient is A&Ox3 and not depressed patient is cleared for discharge. Psych also recommended continuing seroquel prn at home. Patient is to follow up with PMD upon discharge. Patient is to discontinue home medication Norvasc due to lower extremity swelling. Patient is discharged on the following medications: Hydrochlorothiazide 12.5 mg po qd #30. Continue home medication Flomax. Patient is also started on the following medications: Namenda XR 14 mg PO QD, Coenzyme q10 400 mg po QD, Seroquel 12.5 mg po HS. Medication scripts are sent to [facility] in [facility]. Please see EMR for full details. - Date & Time of H&P Date of H&P: 07/12/16 Time of H&P: 13:54 Discharge Exam - Head Exam Head Exam: ATRAUMATIC, NORMOCEPHALIC - ENT Exam ENT Exam: Mucous Membranes Moist - Respiratory Exam Respiratory Exam: Clear to PA & Lateral, NORMAL BREATHING PATTERN. absent: Rales, Rhonchi, Wheezes - Cardiovascular Exam Cardiovascular Exam: REGULAR RHYTHM, +S1, +S2. absent: Diastolic murmur, Gallop , Rubs, Systolic Murmur - GI/Abdominal Exam GI & Abdominal Exam: Normal Bowel Sounds, Soft, Unremarkable. absent: Distended , Firm, Guarding, Rigid, Tenderness - Extremities Exam Additional comments: no edema or tenderness - Neurological Exam Neurological exam: Alert, Oriented x3 - Psychiatric Exam Psychiatric exam: Normal Affect, Normal Mood - Skin Skin Exam: Dry, Intact, Normal Color, Warm Discharge Plan - Discharge Medications Prescriptions: Famotidine [Pepcid] 20 mg PO DAILY #30 tab Memantine HCl [Namenda Xr] 14 mg PO DAILY #30 cap.spr.24 QUEtiapine [Seroquel] 12.5 mg PO HS PRN #30 tab PRN Reason: Agitation Tamsulosin [Flomax] 0.4 mg PO DAILY #30 cap Ubidecarenone [Coenzyme Q10] 400 mg PO DAILY #30 capsule - Follow Up Plan Condition: FAIR Disposition: HOME/ ROUTINE Instructions: Chest Pain (DC), Chronic Hypertension (DC), Low Sodium Diet (DC) Additional Instructions: Patient is to follow up with PMD upon discharge. Patient is to follow up with software lead, Dr. Hardy upon discharge. Patient is to discontinue home medication Norvasc due to lower extremity swelling. Patient is discharged on the following medications: Hydrochlorothiazide 12.5 mg po qd #30. Continue home medication Flomax. Patient is also started on the following medications: Namenda XR 14 mg PO QD, Coenzyme q10 400 mg po QD, Seroquel 12.5 mg po HS. Medication scripts are sent to [facility] in [facility]. Referrals: Keith Hardy MD [Staff Provider] - Juan David Ferrara MD [Medical Doctor] - Clement Murillo MD [Primary Care Provider] - <Delbert Johnson - Last Filed: 07/13/16 15:21> Provider - Provider Date of Admission: 07/09/16 17:03 Attending physician: Delbert Johnson MD Primary care physician: Clement Murillo MD Hospital Course - Lab Results Lab Results: Most Recent Lab Values WBC 4.1 10^3/ul (4.5-11.0) L 07/12/16 09:45 RBC 3.57 10^6/uL (3.5-6.1) 07/12/16 09:45 Hgb 11.6 gm/dL (14.0-18.0) L 07/12/16 09:45 Hct 34.2 % (42.0-52.0) L 07/12/16 09:45 MCV 95.8 fL (80.0-105.0) 07/12/16 09:45 MCH 32.5 pg (25.0-35.0) 07/12/16 09:45 MCHC 33.9 g/dl (31.0-37.0) 07/12/16 09:45 RDW 12.8 % (11.5-14.5) 07/12/16 09:45 Plt Count 220 10^3/uL (120.0-450.0) 07/12/16 09:45 MPV 9.6 fl (7.0-11.0) 07/12/16 09:45 Gran % 44.6 % (50.0-68.0) L 07/12/16 09:45 Lymph % (Auto) 39.1 % (22.0-35.0) H 07/12/16 09:45 [place]wey % (Auto) 10.1 % (1.0-6.0) H 07/12/16 09:45 Eos % (Auto) 5.7 % (1.5-5.0) H 07/12/16 09:45 Baso % (Auto) 0.5 % (0.0-3.0) 07/12/16 09:45 Gran # 1.82 (1.4-6.5) 07/12/16 09:45 Lymph # 1.6 (1.2-3.4) 07/12/16 09:45 [place]wey # 0.4 (0.1-0.6) 07/12/16 09:45 Eos # 0.2 (0.0-0.7) 07/12/16 09:45 Baso # 0.02 K/mm3 (0.0-2.0) 07/12/16 09:45 PT 10.9 Seconds (9.9-11.8) 07/09/16 07:00 INR 1.01 (0.93-1.08) 07/09/16 07:00 APTT 30.1 Seconds (23.7-30.8) 07/09/16 07:00 Sodium 137 mmol/L (132-148) 07/12/16 09:45 Potassium 3.9 mmol/L (3.6-5.0) 07/12/16 09:45 Chloride 101 mmol/L (98-107) 07/12/16 09:45 Carbon Dioxide 28 mmol/L (21-33) 07/12/16 09:45 Anion Gap 12 (10-20) 07/12/16 09:45 BUN 20 mg/dL (7-21) 07/12/16 09:45 Creatinine 1.3 mg/dL (0.5-1.4) 07/12/16 09:45 Est GFR ( Amer) > 60 07/12/16 09:45 Est GFR (Non-Af Amer) 52 07/12/16 09:45 Random Glucose 108 mg/dL (70-110) 07/12/16 09:45 Hemoglobin A1c 4.7 % (4.2-6.5) 07/09/16 07:00 Calcium 9.5 mg/dL (8.4-10.5) 07/12/16 09:45 Total Bilirubin 0.9 mg/dL (0.2-1.3) 07/12/16 09:45 AST 18 U/L (15-59) 07/12/16 09:45 ALT 33 U/L (7-56) 07/12/16 09:45 Alkaline Phosphatase 40 U/L (38-133) 07/12/16 09:45 Lactate Dehydrogenase 417 U/L (333-699) 07/08/16 16:17 Total Creatine Kinase 76 U/L (35-230) 07/08/16 16:17 Troponin I < 0.01 ng/mL 07/09/16 12:44 NT-Pro-B Natriuret Pep 59.7 pg/mL (0-450) 07/08/16 16:17 Total Protein 6.9 g/dL (5.8-8.3) 07/12/16 09:45 Albumin 3.5 g/dL (3.0-4.8) 07/12/16 09:45 Globulin 3.4 gm/dL 07/12/16 09:45 Albumin/Globulin Ratio 1.0 (1.1-1.8) L 07/12/16 09:45 Triglycerides 82 mg/dL (35-160) 07/09/16 07:00 Cholesterol 199 mg/dL (130-200) 07/09/16 07:00 LDL Cholesterol Direct 118 mg/dL (0-129) 07/09/16 07:00 HDL Cholesterol 48 mg/dL (29-60) 07/09/16 07:00 TSH 3rd Generation 0.83 mIU/mL (0.46-4.68) 07/09/16 07:00 Attending/Attestation - Attestation I have personally seen and examined this patient.: Yes I have fully participated in the care of the patient.: Yes I have reviewed all pertinent clinical information, including history, physical exam and plan: Yes Notes (Text): 07/13/16 15:13 attending note; I have seen and examined this patient at bedside. This is a 86 year old male with history of HTN, former smoker, colon cancer s/p resection & chemo, left eye cancer s/p resection who got admitted for evaluation of chest pain which is most likely musculoskeletal in origin. Serial troponin and ekg was within normal limits. Cardiology evaluation with Dr. Hardy appreciated. Stress test showed fixed defect. Episodes of confusion; neurology and psychiatry evaluation appreciated. CT head is negative. Patient is currently alert, awake and oriented. LE swelling has improved. LE duplex is negative. Upon discharge patient will follow up with Dr Vale. Diagnosis; Hypertension Hearing-impaired Left eye blindness
== END 2016-07-12 15:57 | disposition home health service (06) | DRG 313 ==
LOC: ED 14:53 → ERH 17:40 → 2RSO 21:30 → OBSVTOIN 07-09 17:03 → 5RNO 07-11 20:49
PROVIDERS: ADMIT Hospitalist; ATTEND Internal Medicine
DX: R07.89 Other chest pain (principal); G62.9 Polyneuropathy, unspecified; I11.9 Hypertensive heart disease without heart failure; H40.9 Unspecified glaucoma; H91.90 Unspecified hearing loss, unspecified ear; I44.0 Atrioventricular block, first degree; I51.7 Cardiomegaly; Z85.038 Personal history of other malignant neoplasm of large intestine; Z85.840 Personal history of malignant neoplasm of eye; Z87.891 Personal history of nicotine dependence; Z90.49 Acquired absence of other specified parts of digestive tract; Z92.21 Personal history of antineoplastic chemotherapy; Z79.899 Other long term (current) drug therapy; Z79.82 Long term (current) use of aspirin; Z82.3 Family history of stroke; Z80.9 Family history of malignant neoplasm, unspecified; R40.2412 Glasgow coma scale score 13-15, at arrival to emergency department; R60.0 Localized edema; H54.8 Legal blindness, as defined in USA; R41.82 Altered mental status, unspecified; I08.3 Combined rheumatic disorders of mitral, aortic and tricuspid valves

== ENCOUNTER 2016-12-27 00:57 | Inpatient (IN) | payer MEDICARE, MEDICAID ==
--- NOTE | 2016-12-27 01:20 | ED PDOC ---
Arrival/HPI - General Historian: Patient, Family (daughter at bedside) - History of Present Illness Time/Duration: 24 hours Symptom Onset: Sudden Symptom Course: Intermittent Quality: Unable to Describe Severity Level: Mild, Moderate Activities at Onset: Rest Context: Home - General Chief Complaint: Shortness Of Breath Time Seen by Provider: 12/27/16 01:16 - History of Present Illness Narrative History of Present Illness (Text): 12/27/16 01:17 86M w/PMH sig for BPH, HTN, hx colon CA s/p resection, Hx L eye CA s/p excision , asthma with inhaler evaluated for SOB x 1 day. Daughter reports pt was complaining of SOB, working hard to breath starting at approximately 1pm on day prior to evaluation. Pt also c/o light headedness, back pain, wheezing. Has had recent URI-cough (non productive), congestion. Pt felt intermittently better throughout the day prior to evaluation. Denies N & V, F & C, chest pain , ab pain, changes in bowel or bladder habits. PMH: BPH, HTN, hx colon CA s/p resection, Hx L eye CA s/p excision, asthma with inhaler PSH: L eye excision, colon resection All: NKDA SH: Admits to occasional ETOH use, denies tobacco or illicit drug use; lives with daughter PMD: Ramo (Angelia Pack) Past Medical History - Provider Review Nursing Documentation Reviewed: Yes - Infectious Disease Hx of Infectious Diseases: None - Tetanus Immunization Tetanus Immunization: Unknown - Cardiac Hx Hypertension: Yes - Pulmonary Hx Respiratory Disorders: No - Neurological Hx Neurological Disorder: No - HEENT Hx HEENT Disorder: Yes Hx Blind: Yes (left eye cancer) Hx Deafness: Yes ([id number]) Hx Glaucoma: Yes (right eye) - Renal Hx Renal Disorder: No - Endocrine/Metabolic Hx Endocrine Disorders: No - Hematological/Oncological Hx Blood Disorders: No Hx Cancer: Yes (Colon ca s/p resection) - Integumentary Hx Dermatological Disorder: No - Musculoskeletal/Rheumatological Hx Musculoskeletal Disorders: No Hx Falls: Yes - Gastrointestinal Hx Gastrointestinal Disorders: No - Genitourinary/Gynecological Hx Genitourinary Disorders: Yes Hx Prostate Problems: Yes (BPH) - Psychiatric Hx Psychophysiologic Disorder: No Hx Depression: No Hx Emotional Abuse: No Hx Physical Abuse: No Hx Substance Use: No - Surgical History Other/Comment: colon resection; left eye removal - Anesthesia Hx Anesthesia: Yes Hx Anesthesia Reactions: No Hx Malignant Hyperthermia: No - Suicidal Assessment Feels Threatened In Home Enviroment: No Family/Social History - Physician Review Nursing Documentation Reviewed: Yes Family/Social History: No Known Family HX Smoking Status: Former Smoker Hx Alcohol Use: No Hx Substance Use: No Hx Substance Use Treatment: No Allergies/Home Meds Allergies/Adverse Reactions: Allergies No Known Allergies Allergy (Verified 12/27/16 01:17) Home Medications: Home Meds Medication Instructions Recorded Confirmed Fluticasone/Vilanterol [Breo 1 inhaler INH Q72 12/27/16 12/27/16 Ellipta 100-25 Mcg INH] Review of Systems - Review of Systems Constitutional: Normal. absent: Fevers Eyes: Normal. absent: Vision Changes ENT: Sinus Congestion. absent: Normal Respiratory: SOB, Cough, Wheezing. absent: Normal Cardiovascular: SEGAL. absent: Normal, Chest Pain Gastrointestinal: Normal. absent: Nausea, Vomiting Genitourinary Male: Frequency (baseline). absent: Normal Musculoskeletal: Normal, Back Pain (chronic, low back) Skin: Normal. absent: Rash Neurological: Normal. absent: Headache Physical Exam Vital Signs Reviewed: Yes Temperature: Afebrile Blood Pressure: Hypertensive Pulse: Regular Respiratory Rate: Normal Appearance: Positive for: Non-Toxic, Comfortable Pain Distress: None Mental Status: Positive for: Alert and Oriented X 3 - Systems Exam Head: No: Atraumatic (Left eye missing) Ears: Present: Normal Mouth: Present: Moist Mucous Membranes Nose (External): Present: Atraumatic Neck: Present: Normal Range of Motion Respiratory/Chest: Present: Clear to Auscultation, Good Air Exchange. No: Respiratory Distress, Accessory Muscle Use, Wheezes, Retracting, Tachypneic Cardiovascular: Present: Regular Rate and Rhythm, Normal S1, S2. No: Murmurs Abdomen: Present: Normal Bowel Sounds. No: Tenderness, Distention, Peritoneal Signs Back: Present: Normal Inspection, Paraspinal Tenderness (low back, mild). No: CVA Tenderness, Midline Tenderness Upper Extremity: Present: Normal Inspection. No: Cyanosis, Edema Lower Extremity: Present: Edema (slight bilat). No: Normal Inspection, Tenderness, Swelling Neurological: Present: GCS=15, CN II-XII Intact, Speech Normal Skin: Present: Warm, Dry, Normal Color. No: Rashes Psychiatric: Present: Alert (hard of hearing), Oriented x 3, Normal Insight, Normal Concentration Vital Signs Temp Pulse Resp BP Pulse Ox 12/27/16 02:57 72 19 169/94 H 99 12/27/16 01:37 19 99 12/27/16 01:03 97.9 F 76 14 154/82 H 95 Medical Decision Making ED Course and Treatment: In agreement with resident note, which includes further HPI details. Patient was seen and evaluated with resident, came up with plan and treatment together. (Robbie Teixeira) 12/27/16 01:22 pt seen/evaluated, will order work up to r/o pna. 12/27/16 03:03 Case [facility] ED attending, will put pt up for admission for dyspnea. 12/27/16 03:04 Spoke with pediatrician/medical doctor regarding admission, will contact Dr. Hargrove for admission. 12/27/16 03:[address] Hargrove who accepts pt for tele admission for dyspnea. (Angelia Pack) - Lab Interpretations Lab Results: 12/27/16 02:00 12/27/16 02:00 Lab Results 12/27/16 02:00: Sodium 143, Potassium 4.0, Chloride 105, Carbon Dioxide 32, Anion Gap 10, BUN 19, Creatinine 1.5, Est GFR ( Amer) 54, Est GFR (Non- Af Amer) 44, Random Glucose 89, Calcium 10.1, Total Bilirubin 0.7, AST 36, ALT 31, Alkaline Phosphatase 50, Lactate Dehydrogenase 373, Total Creatine Kinase 101, Troponin I < 0.01, NT-Pro-B Natriuret Pep 99.0, Total Protein 7.2, Albumin 4.0, Globulin 3.2, Albumin/Globulin Ratio 1.3 12/27/16 02:00: WBC 3.9 L, RBC 3.86, Hgb 12.4 L, Hct 37.2 L, MCV 96.4, MCH 32.1 , MCHC 33.3, RDW 12.7, Plt Count 216, MPV 9.8, Gran % 54.6, Lymph % (Auto) 34.4 , [place] % (Auto) 8.7 H, Eos % (Auto) 2.0, Baso % (Auto) 0.3, Gran # 2.14, Lymph # 1.4, [place] # 0.3, Eos # 0.1, Baso # 0.01 - RAD Interpretation Radiology Orders: 12/27/16 01:23 CHEST PORTABLE [RAD] Stat - Medication Orders Current Medication Orders: Discontinued Medications Albuterol/Ipratropium (Duoneb 3 Mg/0.5 Mg (3 Ml) Ud) 3 ml IH STAT STA Stop: 12/27/16 02:58 Disposition/Present on Arrival - Present on Arrival Any Indicators Present on Arrival: No History of DVT/PE: No History of Uncontrolled Diabetes: No Urinary Catheter: No History Surgical Site Infection Following: None - Disposition Have Diagnosis and Disposition been Completed?: Yes Disposition Time: 03:06 Patient Plan: Observation - Disposition Diagnosis: Dyspnea Disposition: HOSPITALIZED Condition: FAIR Forms: [employer] (Mauritanian)
[2016-12-27 02:28] LABS: BASO # 0.01 K/mm3 (0.0-2.0); BASO % 0.3 % (0.0-3.0); EOS # 0.1 (0.0-0.7); GRAN # 2.14 (1.4-6.5); GRAN % 54.6 % (50.0-68.0); HEMATOCRIT 37.2 % (42.0-52.0); LYMPH # 1.4 (1.2-3.4); LYMPH % 34.4 % (22.0-35.0); MEAN CELL VOLUME 96.4 fl (80.0-105.0); MEAN CORPUSCULAR HEMOGLOBIN 32.1 pg (25.0-35.0); MEAN CORPUSCULAR HGB CONC 33.3 g/dl (31.0-37.0); MEAN PLATELET VOLUME 9.8 fl (7.0-11.0); MONO # 0.3 (0.1-0.6); MONO % 8.7 % (1.0-6.0); RED CELL DISTRIBUTION WIDTH 12.7 % (11.5-14.5); WHITE BLOOD COUNT 3.9 10^3/ul (4.5-11.0)
[2016-12-27 02:31] LABS: ALB/GLOB RATIO 1.3 (1.1-1.8); ALKALINE PHOSPHATASE 50 U/L (38-126); ALT/SGPT 31 U/L (7-56); AST/SGOT 36 U/L (17-59); BILIRUBIN,TOTAL 0.7 mg/dL (0.2-1.3); BLOOD UREA NITROGEN 19 mg/dL (7-21); CALCIUM 10.1 mg/dL (8.4-10.5); CARBON DIOXIDE 32 mmol/L (21-33); CHLORIDE 105 mmol/L (98-107); GFR AFRICAN-AMERICAN 54; GLUCOSE,RANDOM 89 mg/dL (70-110); SODIUM 143 mmol/L (132-148); TOTAL PROTEIN 7.2 g/dL (5.8-8.3)
[2016-12-27 02:52] LABS: TROPONIN I < 0.01 ng/mL
[2016-12-27] MEDS ORDERED: Albuterol-Ipratrop 3 mg / 0.5 (3 ml) UD IH STA (02:57)
[2016-12-27] MEDS ORDERED: Albuterol-Ipratrop 3 mg / 0.5 (3 ml) UD IH PRN (03:30)
--- NOTE | 2016-12-27 03:43 | CP.PCM.HP ---
History of Present Illness - History of Present Illness History of Present Illness: This is a 86 year old man with a past medical history of colon cancer(s/p resection), left eye cancer (s/p excision), bph and hypertension who comes in complaining of shortness of breath for the past two months. The patient reports coming in today because the shortness of breath became sever earlier this afternoon. The patient reports taking his albuterol pump however denies any improvement in his symptoms. The patient also reports a recent URI about one week ago. The patient also reports chest pain that is located bilaterally on his chest with no radiation that started today. The patient rates the pain an 7/10 in severity and describes it as sharp in nature. The patient denies any abdominal pain, constipation, diarrhea, sore throat, fevers, chills, changes in vision, syncopal episodes, or any other complaints. PMD: Dr. Murillo Past medical history: See hpi Medications: Memantine, seroquel, hctz, breo, and tamsulosin Past surgical history: Resection of part of colon, left eye removal Allergies: NKDA Social history: reports being a social drinker. Former smoker. Quit the year 1999. Denies illicit drug use. Lives with daughter. Present on Admission - Present on Admission Any Indicators Present on Admission: No Review of Systems - Constitutional Constitutional: absent: Anorexia, Chills, Frequent Falls, Night Sweats, Weakness - EENT Eyes: absent: Blind Spots, Blurred Vision, Discharge, Irritation, Loss of Peripheral Vision, Loss of Vision Ears: absent: Decreased Hearing, Disequilibrium, Dizziness Nose/Mouth/Throat: absent: Nasal Congestion, Nasal Trauma, Bleeding Gums, Dysphagia, Mouth Pain, Throat Swelling - Cardiovascular Cardiovascular: Chest Pain, Chest Pain with Activity, Dyspnea. absent: Chest Pain at Rest, Claudication, Diaphoresis - Respiratory Respiratory: Dyspnea. absent: Cough, Wheezing, Snoring, Stridor - Gastrointestinal Gastrointestinal: absent: Abdominal Pain, Belching, Change in Stool Character, Diarrhea, Excessive Flatus, Loose Stools - Genitourinary Genitourinary: absent: Change in Urinary Stream, Pyuria, Nocturia, Urinary Hesitance, Urinary Urgency - Musculoskeletal Musculoskeletal: absent: Abnormal Gait, Arthralgias, Joint Swelling, Limited Range of Motion, Muscle Weakness, Stiffness - Integumentary Integumentary: absent: Alopecia, Hirsutism, Lesions, Rash, Swelling - Neurological Neurological: absent: Disequilibrium, Dizziness, Numbness, Headaches, Lack of Coordination, Paresthesias - Psychiatric Psychiatric: absent: Anxiety, Change in Appetite, Depression, Panic Attacks - Endocrine Endocrine: absent: Change in Body Appearance, Deepening of Voice, Excessive Sweating Past Patient History - Infectious Disease Hx of Infectious Diseases: None - Tetanus Immunizations Tetanus Immunization: Unknown - Past Social History Smoking Status: Former Smoker - CARDIAC Hx Hypertension: Yes - PULMONARY Hx Respiratory Disorders: No - NEUROLOGICAL Hx Neurological Disorder: No - HEENT Hx HEENT Problems: Yes Hx Blind: Yes (left eye cancer) Hx Deafness: Yes ([id number]) Hx Glaucoma: Yes (right eye) - RENAL Hx Chronic Kidney Disease: No - ENDOCRINE/METABOLIC Hx Endocrine Disorders: No - HEMATOLOGICAL/ONCOLOGICAL Hx Blood Disorders: No Hx Cancer: Yes (Colon ca s/p resection) - INTEGUMENTARY Hx Dermatological Problems: No - MUSCULOSKELETAL/RHEUMATOLOGICAL Hx Musculoskeletal Disorders: No Hx Falls: Yes - GASTROINTESTINAL Hx Gastrointestinal Disorders: No - GENITOURINARY/GYNECOLOGICAL Hx Genitourinary Disorders: Yes Hx Prostate Problems: Yes (BPH) - PSYCHIATRIC Hx Psychophysiologic Disorder: No Hx Depression: No Hx Emotional Abuse: No Hx Physical Abuse: No Hx Substance Use: No - SURGICAL HISTORY Other/Comment: colon resection; left eye removal - ANESTHESIA Hx Anesthesia: Yes Hx Anesthesia Reactions: No Hx Malignant Hyperthermia: No Meds Allergies/Adverse Reactions: Allergies Allergy/AdvReac Type Severity Reaction Status Date / Time No Known Allergies Allergy Verified 12/27/16 01:17 Physical Exam - Head Exam Head Exam: ATRAUMATIC, NORMAL INSPECTION, NORMOCEPHALIC - Eye Exam Eye Exam: EOMI Pupil Exam: NORMAL ACCOMODATION Additional comments: Left eye s/p resection - ENT Exam ENT Exam: Mucous Membranes Moist, Normal Exam. absent: Normal Oropharynx, TM's Normal Bilaterally - Neck Exam Neck exam: Positive for: Normal Inspection. Negative for: Lymphadenopathy, Thyromegaly - Respiratory Exam Respiratory Exam: Decreased Breath Sounds. absent: Prolonged Expiratory Phase, Respiratory Distress, Stridor - Cardiovascular Exam Cardiovascular Exam: REGULAR RHYTHM, +S1, +S2. absent: Gallop, RRR, Rubs - GI/Abdominal Exam GI & Abdominal Exam: Normal Bowel Sounds, Soft. absent: Distended, Organomegaly , Tenderness - Extremities Exam Extremities exam: Positive for: normal inspection. Negative for: full ROM, joint swelling, pedal edema, tenderness - Back Exam Back exam: NORMAL INSPECTION. absent: CVA tenderness (L), CVA tenderness (R), paraspinal tenderness - Neurological Exam Neurological exam: Oriented x3 - Psychiatric Exam Psychiatric exam: Normal Affect, Normal Mood - Skin Skin Exam: Dry, Intact Results - Vital Signs Recent Vital Signs: Last Vital Signs Temp 97.9 F 12/27/16 01:03 Pulse 72 12/27/16 02:57 Resp 19 12/27/16 02:57 BP 169/94 H 12/27/16 02:57 Pulse Ox 99 12/27/16 02:57 - Labs Result Diagrams: 12/27/16 05:45 12/27/16 05:45 Assessment & Plan - Assessment and Plan (Free Text) Assessment: This is a 86 year old male with a past medical history of colon cancer(s/p resection), left eye cancer (s/p excision), bph and hypertension who is being admitted for dyspnea and chest pain. Plan: 1.Chest pain r/o acs -Last echo test done 07/09/16 showed normal EF 60-65%, Trace A.R., Mild M.R., and Mild T.R. -Last stress test done 07/09/16 showed mild, fixed anterior defect suggestive of OK, fixed inferior and infra-lateral defects d/t diaphragmatic, and normal gated wall motion -EKG done today showed 1st degree AV block. -Troponin (-)x1. Troponins trending. Will f/u with results -Baby aspirin 2.Dyspnea -Recent URI illness reported -Influenza ordered. Will f/u with results -Duonebs -Nasal cannula 2L. Maintian sp02 greater than 90 3.Hypertension -restart home meds. 4.BPH -restart home meds 5.h/o Colon cancer -s/p resection -no acute intervention indicated at this time. -Will monitor closely 6.h/o Left eye cancer -s/p excision -No acute intervention indicated at this time. -Will monitor closely. GI ppx -Protonix DVT PPX -SCD's
[2016-12-27 05:02] VITALS: BMI 34.4
[2016-12-27 06:38] LABS: BASO # 0.01 K/mm3 (0.0-2.0); BASO % 0.2 % (0.0-3.0); EOS # 0.1 (0.0-0.7); EOS % 1.9 % (1.5-5.0); GRAN # 2.09 (1.4-6.5); HEMATOCRIT 35.9 % (42.0-52.0); LYMPH # 1.6 (1.2-3.4); LYMPH % 38.4 % (22.0-35.0); MEAN CORPUSCULAR HEMOGLOBIN 31.8 pg (25.0-35.0); MEAN CORPUSCULAR HGB CONC 33.1 g/dl (31.0-37.0); MEAN PLATELET VOLUME 9.5 fl (7.0-11.0); MONO # 0.4 (0.1-0.6); MONO % 9.5 % (1.0-6.0); RED CELL DISTRIBUTION WIDTH 12.7 % (11.5-14.5); WHITE BLOOD COUNT 4.2 10^3/ul (4.5-11.0)
[2016-12-27 06:54] LABS: ALB/GLOB RATIO 1.2 (1.1-1.8); BILIRUBIN,TOTAL 0.7 mg/dL (0.2-1.3); CALCIUM 9.9 mg/dL (8.4-10.5); MAGNESIUM 1.8 mg/dL (1.7-2.2); POTASSIUM 4.2 mmol/L (3.6-5.0); TOTAL PROTEIN 6.7 g/dL (5.8-8.3)
[2016-12-27] MEDS ORDERED: Levalbuterol 0.63 MG/3 ML Inhal Soln UD IH PRN (07:44)
[2016-12-27] MEDS: Budesonide 0.5 mg/2 ml Inhal Susp UD IH SCH ×2 (07:54→20:00)
[2016-12-27] MEDS: Levalbuterol 0.63 MG/3 ML Inhal Soln UD IH SCH ×3 (07:54→20:00)
--- NOTE | 2016-12-27 08:24 | RAD ---
HISTORY: cough COMPARISON: 07/08/2016 FINDINGS: LUNGS: No active pulmonary disease. PLEURA: No significant pleural effusion identified, no pneumothorax apparent. CARDIOVASCULAR: Normal. OSSEOUS STRUCTURES: No significant abnormalities. VISUALIZED UPPER ABDOMEN: Normal. OTHER FINDINGS: Right-sided Port-A-Cath. The catheter terminates in the upper SVC IMPRESSION: No active disease.
[2016-12-27] MEDS ORDERED: VILANTEROL INH SCH (10:00)
[2016-12-27] MEDS ORDERED: FLUTICASONE INH SCH (10:00)
[2016-12-27] MEDS: MethylPREDNISolone 40 mg Vial IVP SCH ×2 (10:52→21:34)
[2016-12-27] MEDS: Enoxaparin 30 mg Syringe SC SCH (10:52)
[2016-12-27] MEDS: MEMANTINE HCL 14 MG PO SCH (10:54)
[2016-12-27 12:44] LABS: INR 1.09 (0.93-1.08); PARTIAL THROMBOPLASTIN TIME 32.9 Seconds (25.1-36.5)
--- NOTE | 2016-12-27 16:07 | CON ---
CARDIOLOGY CONSULTATION REASON FOR CONSULTATION: Shortness of breath. HISTORY OF PRESENT ILLNESS: The patient is 86 years old male who has a history of colon CA, status post resection; history of left eye cancer, status post excision, the patient is completely fine as he also had excision of his left eye earlier. The patient has a history of bronchial asthma and was brought in because of shortness of breath. The patient did report to me chest discomfort that is nonradiating. SOCIAL HISTORY: The patient reported EtOH abuse. He lives with his daughter. MEDICATIONS: Albuterol inhaler q.4 hours p.r.n., aspirin 81 mg once a day, Lovenox 30 mg once a day, Namenda 40 mg daily, hydrochlorothiazide 12.5 mg once a day, Protonix 40 mg intravenously once a day, Seroquel 12.5 mg at bedtime p.r.n. for agitation, Solu-Medrol 20 mg intravenously twice a day, Xopenex inhaler q.2 hours p.r.n. REVIEW OF SYSTEMS: No fever or chills. No vomiting or diarrhea. No dizziness or syncope. PHYSICAL EXAMINATION: GENERAL: The patient is an elderly male, who does not appear to be in any acute distress at this time. VITAL SIGNS: Blood pressure 140/83, heart rate 72, temperature 97.7, respirations 20. HEENT: The patient is completely blind. NECK: No JVD. CHEST: Clear. A Port-A-Cath is palpable in the right side at a much lower level than expected. HEART: S1 and S2 regular. ABDOMEN: Soft. EXTREMITIES: No edema or calf tenderness. LABORATORY DATA: Hemoglobin and hematocrit 11.9 and 35.9, white count 4.2, platelet count 198,000. SMA-7: Sodium 143, potassium 4.2, chloride 107, CO2 of 29, glucose 92, BUN 19, creatinine 1.4. Two sets of troponins are negative. Chest x-ray was unremarkable. Exit for a Port-A-Cath looks to have migrated much lower down in the chest wall and is not clear to me if it has structural defects. No lung infiltrate or pleural effusion. EKG revealed sinus rhythm with residual block, right bundle-branch block. The patient underwent SPECT scan in 06/2016, which was concluded as probably abnormal SPECT myocardial perfusion study. Mild fixed anterior defects suggestive for myocardial injury. Fixed inferior and inferolateral defects are probably due to diaphragmatic attenuation, normal gated wall motion of the left ventricle. Echocardiography study performed in 06/2016 revealed normal left ventricular size, mild concentric LVH, normal ejection fraction. ASSESSMENT: 1. Chest pain. Myocardial infarction ruled out. The patient has probably abnormal stress test in 06/2016. 2. Abnormal echocardiogram with evidence of right bundle-branch block. 3. History of bronchial asthma/chronic obstructive lung disease. 4. Hypertension. RECOMMENDATIONS: Continue with aspirin 81 mg once a day, Lovenox 30 mg once a day, hydrochlorothiazide 12.5 mg once a day, Protonix 40 mg intravenously once a day, Solu-Medrol 20 mg intravenously twice a day. I will obtain PT, PTT and serum D-dimer. I did review an EKG in 06/2016, which revealed the same picture of right bundle-branch block. No specific workup is needed for that at this time. Conservative medical approach is recommended. I will suggest that the Port-A-Cath which according to the patient has been there since the , which I cannot confirm for sure defect, may have to be removed at this time. Rodo Mcclellan MD
--- NOTE | 2016-12-27 16:09 | CON ---
PULMONARY CONSULTATION DATE: 12/27/2016 REFERRING PHYSICIAN: Delbert Johnson MD REASON FOR CONSULTATION: Chronic obstructive pulmonary disease. HISTORY OF PRESENT ILLNESS: The patient is an 86-year-old male, with past medical history significant for chronic obstructive pulmonary disease, positive extensive smoking history, colon cancer, status post resection, status post left eye surgery, legal blindness, who presents to [facility] with main complaints of increasing shortness of breath at rest and dyspnea on exertion for 1 day. The patient/daughter also reports cough and congestion for the past 3 days. There is no history of significant sputum production. The patient also complains of intermittent chest pain over the past few days. There is no history of coughing up of blood. There is no history of chest pain - made worse with deep respirations. There is no history of temperatures, chills or infectious exposure. There is no history of night sweats, weight loss or appetite change prior to the above events. No history of leg or calf pains. No history of syncope or diaphoresis. No history of recent travel or trauma. REVIEW OF SYSTEMS: No history of nausea, vomiting or diarrhea. No acute urinary symptoms. No new neurologic or musculoskeletal complaints. Rest of the review of systems negative. ALLERGIES: NO KNOWN ALLERGIES. SOCIAL HISTORY: Positive for extensive tobacco usage. No alcohol. FAMILY HISTORY: No inheritable diseases. HOME MEDICATIONS: Include Breo Ellipta, Seroquel, Flomax, Namenda and Microzide. PHYSICAL EXAMINATION: GENERAL: The patient is not short of breath at rest. He is not using accessory muscles for breathing. VITAL SIGNS: Temperature is 97.7, pulse 72, respirations 18/20, blood pressure 140/83. Oxygen saturation on nasal cannula is 100%. HEENT: Normocephalic, atraumatic. No JVD. CARDIOVASCULAR: Systolic ejection murmur at the lower left sternal border. No S3 gallop. LUNGS: Decreased breath sounds at the bases. Minimal rhonchi. Minimal wheezing. EXTREMITIES: No clubbing, cyanosis or edema. Calves are nontender to palpation. GI: Abdomen is soft, nontender and nondistended. Bowel sounds are positive. SKIN: No acute rash. NEUROLOGIC: Exam limited at the present time. PERTINENT LABORATORY DATA: Chest x-ray was done and reviewed. I compared the most recent film to the film done on 07/08/2016. Compared to the film done on 07/08/2016, there are no acute changes on the most recent film. Complete metabolic profile is completely within normal limits. CBC: White count 4.2, hemoglobin 11.9, hematocrit 35.9, platelets of 198. IMPRESSION: 1. Acute bronchitis. 2. Chronic obstructive pulmonary disease. 3. Chest pain. 4. Mild anemia. PLAN: The patient presents to [facility] with main complaints of increasing shortness of breath at rest, and dyspnea on exertion for the past day. There is also a history of cough and congestion for the past 3 days. Lastly, the patient did present with intermittent chest pain. He was thus admitted for additional evaluation. I did review the chest x-ray as above. There is no acute change noted. On physical exam, the patient is in [id number] bronchospasm. I will change the nebulizer treatments to Xopenex and add low-dose intravenous steroids, as well as inhaled steroids. The patient is on Breo-elipta at home. There is no significant alveolar- arterial gradient. Oxygen saturation on nasal cannula is 100%. Repeat a.m. labs are pending. There are no temperatures noted. There is no leukocytosis. Cardiology evaluation with Dr. Mcclellan has also been ordered. The patient does feel little better, and is clinically improved this morning. Additional pulmonary intervention will be based on the clinical status of the patient. I did discuss the above with Dr. Johnson, at length. Thank you very much for this pulmonary consultation. Rico Zuñiga MD MTDL[facility]ric
--- NOTE | 2016-12-27 22:11 | CARD ---
APPROVED REPORT EKG Measurement Heart [id number] <Conclusion> Sinus rhythm with 1st degree AV block with premature atrial complexes Right bundle branch block Abnormal ECG
[2016-12-28] MEDS: Levalbuterol 0.63 MG/3 ML Inhal Soln UD IH SCH ×4 (01:20→19:47)
[2016-12-28 06:58] LABS: GRAN # 3.97 (1.4-6.5); GRAN % 85.7 % (50.0-68.0); HEMATOCRIT 39.2 % (42.0-52.0); LYMPH # 0.6 (1.2-3.4); LYMPH % 13.4 % (22.0-35.0); MEAN CELL VOLUME 96.3 fl (80.0-105.0); MEAN CORPUSCULAR HEMOGLOBIN 32.4 pg (25.0-35.0); MEAN CORPUSCULAR HGB CONC 33.7 g/dl (31.0-37.0); MEAN PLATELET VOLUME 9.9 fl (7.0-11.0); MONO % 0.9 % (1.0-6.0); RED CELL DISTRIBUTION WIDTH 12.6 % (11.5-14.5); WHITE BLOOD COUNT 4.6 10^3/ul (4.5-11.0)
[2016-12-28 07:21] LABS: ALB/GLOB RATIO 1.2 (1.1-1.8); ALKALINE PHOSPHATASE 44 U/L (38-126); ALT/SGPT 32 U/L (7-56); AST/SGOT 29 U/L (17-59); BILIRUBIN,TOTAL 0.9 mg/dL (0.2-1.3); BLOOD UREA NITROGEN 19 mg/dL (7-21); CALCIUM 10.6 mg/dL (8.4-10.5); CARBON DIOXIDE 27 mmol/L (21-33); CHLORIDE 106 mmol/L (98-107); CHOLESTEROL 209 mg/dL (130-200); GFR AFRICAN-AMERICAN > 60; GLUCOSE,RANDOM 124 mg/dL (70-110); POTASSIUM 4.7 mmol/L (3.6-5.0); SODIUM 145 mmol/L (132-148); TOTAL PROTEIN 7.6 g/dL (5.8-8.3)
[2016-12-28] MEDS: Budesonide 0.5 mg/2 ml Inhal Susp UD IH SCH ×2 (08:03→19:47)
--- NOTE | 2016-12-28 08:35 | PN ---
SUBJECTIVE: The patient appears comfortable this morning. He is not short of breath at rest. He denies chest pain. PHYSICAL EXAMINATION: VITAL SIGNS: Temperature 98.3, pulse 80, respirations 18, blood pressure 164/86. Oxygen saturation on room air is 100%. HEENT: Normocephalic, atraumatic. NECK: No JVD. CARDIOVASCULAR: Systolic ejection murmur at the lower left sternal border. No S3 gallop. LUNGS: Improved breath sounds at the bases. Very minimal/less rhonchi. No wheezing. EXTREMITIES: No clubbing, cyanosis or edema. Calves are nontender to palpation. GASTROINTESTINAL: Abdomen is soft, nontender and nondistended. Bowel sounds are positive. SKIN: No acute rash. NEUROLOGIC: Limited at the present time. IMPRESSION: 1. Acute bronchitis. 2. Chronic obstructive pulmonary disease. 3. Chest pain-resolved. 4. Mild anemia. PLAN: The patient appears very comfortable this morning. He is not short of breath at rest. His chest pain has resolved. He does state to feeling much better overall. On physical exam, his bronchospasm also continues to resolve. In addition, the oxygen saturation on room air is now 100%. I will continue with the current nebulizer treatments, and change to oral steroids this morning. Cardiology evaluation is noted. Repeat a.m. labs are pending. Clinical status of the patient is significantly improved-compared to the initial presentation. I will discuss the above with the attending physician. Rico Zuñiga MD MTDL[facility]
[2016-12-28] MEDS: Enoxaparin 30 mg Syringe SC SCH (09:23)
[2016-12-28] MEDS: POLYETHYLENE GLYCOL 3350 17 GM/Dose PACKET PO SCH ×2 (09:24→17:28)
[2016-12-28] MEDS: MEMANTINE HCL 14 MG PO SCH (11:35)
--- NOTE | 2016-12-28 15:19 | PN ---
DATE: SUBJECTIVE: The patient denies any chest pain. Shortness of breath has improved. PHYSICAL EXAMINATION: VITAL SIGNS: Blood pressure 131/69, heart rate 79, temperature 98.4, respirations 16. HEENT: The patient is legally blind. NECK: No JVD. CHEST: Minimal rhonchi. No wheezing. HEART: S1 and S2, regular. EXTREMITIES: No edema. LABORATORY DATA: Hemoglobin and hematocrit . White count and platelet count are within normal limit. Today's SMA-7 is within normal limits except for glucose of 124. Calcium is elevated at 10.6. A total of three troponins are negative. Venous Doppler of the lower extremity, no DVT in the visualized segments. ASSESSMENT: 1. Chest pain, myocardial infarction is ruled out. 2. Chronic obstructive lung disease. 3. Abnormal EKG with evidence of right bundle-branch block. 4. Hypertension. RECOMMENDATIONS: Continue aspirin 81 mg once a day, Lovenox 30 mg once a day, hydrochlorothiazide 12.5 mg once a day, prednisone 30 mg once a day, Protonix 20 mg intravenously once a day, Xopenex inhaler q. 6 hours p.r.n., Seroquel 12.5 mg at bedtime. The patient is not a suitable candidate for beta blockers, at least at this time. Continued medical therapy for underlying coronary artery disease is justified. Rodo Mcclellan MD
--- NOTE | 2016-12-28 16:59 | CP.PCM.PN ---
<Vineet Morris - Last Filed: 12/28/16 16:46> Subjective - Date & Time of Evaluation Date of Evaluation: 12/28/16 Time of Evaluation: 07:40 - Subjective Subjective: patient was seen and examined at bedside. he denies any complaints of sob or cp but is complaining of some constipation. pt is told that physical therapy will see him today to determine his disposition. pt denies n/v/d/, f/c, cp, sob, abdominal pain, headache, back/neck pain or any weakness. Objective - Vital Signs/Intake and Output Vital Signs (last 24 hours): Temp Pulse Resp BP Pulse Ox 98.4 F 92 H 16 131/69 100 12/28/16 12:00 12/28/16 14:00 12/28/16 12:00 12/28/16 12:00 12/28/16 06:00 Intake and Output: 12/28/16 12/28/16 06:59 18:59 Intake Total 240 Output Total 1200 Balance -960 - Medications Medications: Current Medications Albuterol/Ipratropium (Duoneb 3 Mg/0.5 Mg (3 Ml) Ud) 3 ml IH Q4 PRN PRN Reason: Shortness of Breath Aspirin (Ecotrin) 81 mg PO 0800 [facility] Last Admin: 12/28/16 09:24 Dose: 81 mg Budesonide (Pulmicort Respules) 0.5 mg IH [id number] [facility] Last Admin: 12/28/16 08:03 Dose: 0.5 mg Enoxaparin Sodium (Lovenox) 30 mg SC DAILY [facility] PRN Reason: Protocol Last Admin: 12/28/16 09:23 Dose: 30 mg Hydrochlorothiazide (Microzide) 12.5 mg PO DAILY [facility] Last Admin: 12/28/16 09:24 Dose: 12.5 mg Levalbuterol HCl (Xopenex) 0.63 mg IH [id number] [facility] Last Admin: 12/28/16 13:25 Dose: 0.63 mg Levalbuterol HCl (Xopenex) 0.63 mg IH Q2 PRN PRN Reason: Shortness of Breath Memantine Hcl [ Namenda Xr] 14 Mg ( Home Med) 14 mg PO DAILY [facility] Last Admin: 12/28/16 11:35 Dose: Not Given Pantoprazole Sodium (Protonix Inj) 40 mg IVP DAILY [facility] Last Admin: 12/28/16 09:24 Dose: 40 mg Polyethylene Glycol (Miralax) 17 gm PO BID [facility] Last Admin: 12/28/16 09:24 Dose: 17 gm Prednisone (Prednisone Tab) 30 mg PO DAILY [facility] Last Admin: 12/28/16 09:24 Dose: 30 mg Quetiapine Fumarate (Seroquel) 12.5 mg PO HS PRN; Protocol PRN Reason: Agitation Last Admin: 12/27/16 21:35 Dose: 12.5 mg Tamsulosin HCl (Flomax) 0.4 mg PO DAILY [facility] Last Admin: 12/28/16 09:24 Dose: 0.4 mg - Labs Labs: 12/28/16 06:15 12/28/16 06:15 PT 12.0 SECONDS (9.4-12.5) 12/27/16 12:00 INR 1.09 (0.93-1.08) H 12/27/16 12:00 APTT 32.9 Seconds (25.1-36.5) 12/27/16 12:00 - Additional Findings Additional findings: - Head Exam Head Exam: ATRAUMATIC, NORMAL INSPECTION, NORMOCEPHALIC - Eye Exam Eye Exam: EOMI Pupil Exam: NORMAL ACCOMODATION Additional comments: Left eye s/p resection - ENT Exam ENT Exam: Mucous Membranes Moist, Normal Exam. absent: Normal Oropharynx, TM's Normal Bilaterally - Neck Exam Neck exam: Positive for: Normal Inspection. Negative for: Lymphadenopathy, Thyromegaly - Respiratory Exam Respiratory Exam: Normal Breath Sounds. absent: Prolonged Expiratory Phase, Respiratory Distress, Stridor - Cardiovascular Exam Cardiovascular Exam: REGULAR RHYTHM, +S1, +S2. absent: Gallop, RRR, Rubs - GI/Abdominal Exam GI & Abdominal Exam: Normal Bowel Sounds, Soft. absent: Distended, Organomegaly , Tenderness - Extremities Exam Extremities exam: Positive for: normal inspection. Negative for: full ROM, joint swelling, pedal edema, tenderness - Back Exam Back exam: NORMAL INSPECTION. absent: CVA tenderness (L), CVA tenderness (R), paraspinal tenderness - Neurological Exam Neurological exam: Oriented x3 - Psychiatric Exam Psychiatric exam: Normal Affect, Normal Mood - Skin Skin Exam: Dry, Intact Assessment and Plan - Assessment and Plan (Free Text) Assessment: 86 year old male with a past medical history of colon cancer(s/p resection), left eye cancer (s/p excision), bph and hypertension who is being treated for acute asthma exacerbation. Plan: 1. Asthma exacerbation - f/u influenza - Xopenex NOE and PRN - Budesonide - Duonebs PRN - O2Sat good off O2 - cont prednisone, titrate down - Pulm consulted, recs appreciated 2.Chest pain likely 2/2 asthma exacerbation and cough, - ACS ruled out - Last echo test done 07/09/16 showed normal EF 60-65%, Trace A.R., Mild M.R., and Mild T.R. - Last stress test done 07/09/16 showed mild, fixed anterior defect suggestive of MT, fixed inferior and infra-lateral defects d/t diaphragmatic, and normal gated wall motion - EKG showed 1st degree AV block. - Troponin (-)x3 - ASA 81 - LDL panel shows elevated chol and LDL 126, HDL 53 - TSH 0.34 - Cardio recommends to avoid BB for CAD 3. constipation - start Miralax 4.Hypertension - cont HCTZ 5.BPH - cont Flomax 6. h/o Colon cancer - no acute intervention indicated at this time. - Will monitor closely for any changes in H/H 7. h/o Left eye cancer - No acute intervention indicated at this time. - staff is informed that pt is visually impaired 8. ? 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 Alex Morris PGY1 <Delbert Johnson - Last Filed: 12/28/16 18:02> Objective - Vital Signs/Intake and Output Vital Signs (last 24 hours): Temp Pulse Resp BP Pulse Ox 98.4 F 82 20 150/72 100 12/28/16 17:54 12/28/16 17:59 12/28/16 17:54 12/28/16 17:54 12/28/16 06:00 Intake and Output: 12/28/16 12/28/16 06:59 18:59 Intake Total 240 Output Total 1200 Balance -960 - Medications Medications: Current Medications Albuterol/Ipratropium (Duoneb 3 Mg/0.5 Mg (3 Ml) Ud) 3 ml IH Q4 PRN PRN Reason: Shortness of Breath Aspirin (Ecotrin) 81 mg PO 0800 [facility] Last Admin: 12/28/16 09:24 Dose: 81 mg Budesonide (Pulmicort Respules) 0.5 mg IH [id number] [facility] Last Admin: 12/28/16 08:03 Dose: 0.5 mg Enoxaparin Sodium (Lovenox) 30 mg SC DAILY [facility] PRN Reason: Protocol Last Admin: 12/28/16 09:23 Dose: 30 mg Hydrochlorothiazide (Microzide) 12.5 mg PO DAILY [facility] Last Admin: 12/28/16 09:24 Dose: 12.5 mg Levalbuterol HCl (Xopenex) 0.63 mg IH [id number] [facility] Last Admin: 12/28/16 13:25 Dose: 0.63 mg Levalbuterol HCl (Xopenex) 0.63 mg IH Q2 PRN PRN Reason: Shortness of Breath Memantine Hcl [ Namenda Xr] 14 Mg ( Home Med) 14 mg PO DAILY [facility] Last Admin: 12/28/16 11:35 Dose: Not Given Pantoprazole Sodium (Protonix Inj) 40 mg IVP DAILY [facility] Last Admin: 12/28/16 09:24 Dose: 40 mg Polyethylene Glycol (Miralax) 17 gm PO BID [facility] Last Admin: 12/28/16 17:28 Dose: 17 gm Prednisone (Prednisone Tab) 30 mg PO DAILY [facility] Last Admin: 12/28/16 09:24 Dose: 30 mg Quetiapine Fumarate (Seroquel) 12.5 mg PO HS PRN; Protocol PRN Reason: Agitation Last Admin: 12/27/16 21:35 Dose: 12.5 mg Tamsulosin HCl (Flomax) 0.4 mg PO DAILY [facility] Last Admin: 12/28/16 09:24 Dose: 0.4 mg - Labs Labs: 12/28/16 06:15 12/28/16 06:15 PT 12.0 SECONDS (9.4-12.5) 12/27/16 12:00 INR 1.09 (0.93-1.08) H 12/27/16 12:00 APTT 32.9 Seconds (25.1-36.5) 12/27/16 12:00 Attending/Attestation - Attestation I have personally seen and examined this patient.: Yes I have fully participated in the care of the patient.: Yes I have reviewed all pertinent clinical information, including history, physical exam and plan: Yes Notes (Text): 12/28/16 18:01 Attending note; Patient seen and examined with resident. Patient is complaining of cough and shortness of breath on exertion. Improved since admission. Continue oxygen when necessary, IV solumedrol. We will get physical therapy and pulse ox on ambulation. Pulmonary and cardiology evaluation appreciated. Upon discharge the patient will follow-up with PMD Dr. Murillo.
[2016-12-28 17:54] VITALS: RESP 20
[2016-12-29] MEDS: Levalbuterol 0.63 MG/3 ML Inhal Soln UD IH SCH ×4 (01:17→19:40)
--- NOTE | 2016-12-29 07:27 | PN ---
SUBJECTIVE: The patient appears comfortable this morning. He is not short of breath at rest. PHYSICAL EXAMINATION: VITAL SIGNS: Temperature is 98.6, pulse 70, respirations 18/20, blood pressure 136/78. Oxygen saturation on room air is 99%. HEENT: Normocephalic, atraumatic. NECK: No JVD. CARDIOVASCULAR: Systolic ejection murmur at the lower left sternal border. No S3 gallop. LUNGS: Better breath sounds at the bases. Minimal/less rhonchi. No wheezing. EXTREMITIES: No clubbing, cyanosis or edema. Calves are nontender to palpation. GASTROINTESTINAL: Abdomen is soft, nontender and nondistended. Bowel sounds are positive. SKIN: No acute rash. NEUROLOGIC: Limited at the present time. IMPRESSION: 1. Acute bronchitis. 2. Chronic obstructive pulmonary disease. 3. Chest pain-resolved. 4. Mild anemia. PLAN: The patient appears comfortable this morning. He is not short of breath at rest. His chest pain has resolved. He does state to feeling much better overall. On physical exam, his bronchospasm continues to slowly resolve. In addition, the alveolar-arterial gradient also continues to resolve. Oxygen saturation on room air is now 99%. I will continue with the current nebulizer treatments and oral steroids(changed yesterday) for now. Cardiology evaluation is ongoing. Input by Dr. Mcclellan is noted. Clinical status of the patient is significantly improved-compared to the initial presentation. I will discuss the above with the attending physician. Rico Zuñiga MD MTDD
[2016-12-29] MEDS: Budesonide 0.5 mg/2 ml Inhal Susp UD IH SCH ×2 (07:36→19:41)
[2016-12-29] MEDS: Enoxaparin 30 mg Syringe SC SCH (09:13)
[2016-12-29] MEDS: POLYETHYLENE GLYCOL 3350 17 GM/Dose PACKET PO SCH ×2 (09:13→18:40)
[2016-12-29] MEDS: MEMANTINE HCL 14 MG PO SCH (09:23)
[2016-12-29] MEDS ORDERED: Magnesium Citrate Oral SOL (300 ml) PO STA (11:17)
--- NOTE | 2016-12-29 13:16 | CP.PCM.PCO ---
Addendum Addendum: 12/29/16 13:13 I have tried to contact Deepti, the patient's daughter, once yesterday, this morning and twice in the past hour at [phone] (which I used to speak to her when pt was originally admitted) to explain to her that his lab results are normal and that patient is discharged, however I get no response or answering machine. will continue to attempt, and speak to pt about having him call the daughter himself. 12/29/16 13:15
--- NOTE | 2016-12-29 23:34 | CP.PCM.PN ---
<Vineet Morris - Last Filed: 12/29/16 23:35> Subjective - Date & Time of Evaluation Date of Evaluation: 12/29/16 Time of Evaluation: 09:45 - Subjective Subjective: patient was seen and examined at bedside. states his breathing has improved and that he tolerated PT yesterday well. denies cp, sob, wheezing, cough, weakness, headache. complains of constipation, last BM being Tuesday but is having +gas and an appetite. Objective - Vital Signs/Intake and Output Vital Signs (last 24 hours): Temp Pulse Resp BP Pulse Ox 97.7 F 82 20 160/80 H 99 12/29/16 17:53 12/29/16 17:53 12/29/16 17:53 12/29/16 17:53 12/29/16 05:53 Intake and Output: 12/29/16 12/30/16 18:59 06:59 Intake Total 900 Output Total 525 Balance 375 - Medications Medications: Current Medications Albuterol/Ipratropium (Duoneb 3 Mg/0.5 Mg (3 Ml) Ud) 3 ml IH Q4 PRN PRN Reason: Shortness of Breath Aspirin (Ecotrin) 81 mg PO 0800 [facility] Last Admin: 12/29/16 09:13 Dose: 81 mg Budesonide (Pulmicort Respules) 0.5 mg IH [id number] [facility] Last Admin: 12/29/16 19:41 Dose: 0.5 mg Enoxaparin Sodium (Lovenox) 30 mg SC DAILY [facility] PRN Reason: Protocol Last Admin: 12/29/16 09:13 Dose: 30 mg Hydrochlorothiazide (Microzide) 12.5 mg PO DAILY [facility] Last Admin: 12/29/16 09:13 Dose: 12.5 mg Levalbuterol HCl (Xopenex) 0.63 mg IH [id number] [facility] Last Admin: 12/29/16 19:40 Dose: 0.63 mg Levalbuterol HCl (Xopenex) 0.63 mg IH Q2 PRN PRN Reason: Shortness of Breath Memantine Hcl [ Namenda Xr] 14 Mg ( Home Med) 14 mg PO DAILY [facility] Last Admin: 12/29/16 09:23 Dose: Not Given Pantoprazole Sodium (Protonix Inj) 40 mg IVP DAILY [facility] Last Admin: 12/29/16 09:12 Dose: 40 mg Polyethylene Glycol (Miralax) 17 gm PO BID [facility] Last Admin: 12/29/16 18:40 Dose: Not Given Prednisone (Prednisone Tab) 30 mg PO DAILY [facility] Last Admin: 12/29/16 09:13 Dose: 30 mg Quetiapine Fumarate (Seroquel) 12.5 mg PO HS PRN; Protocol PRN Reason: Agitation Last Admin: 12/29/16 22:23 Dose: 12.5 mg Tamsulosin HCl (Flomax) 0.4 mg PO DAILY [facility] Last Admin: 12/29/16 09:13 Dose: 0.4 mg - Labs Labs: PT 12.0 SECONDS (9.4-12.5) 12/27/16 12:00 INR 1.09 (0.93-1.08) H 12/27/16 12:00 APTT 32.9 Seconds (25.1-36.5) 12/27/16 12:00 - Additional Findings Additional findings: - Head Exam Head Exam: ATRAUMATIC, NORMAL INSPECTION, NORMOCEPHALIC - Eye Exam Eye Exam: EOMI Pupil Exam: NORMAL ACCOMODATION Additional comments: Left eye s/p resection, visually impaired b/l - ENT Exam ENT Exam: Mucous Membranes Moist, Normal Exam. absent: Normal Oropharynx, TM's Normal Bilaterally Additional comments: Difficulty hearing - Neck Exam Neck exam: Positive for: Normal Inspection. Negative for: Lymphadenopathy, Thyromegaly - Respiratory Exam Respiratory Exam: Normal Breath Sounds. absent: Prolonged Expiratory Phase, Respiratory Distress, Stridor - Cardiovascular Exam Cardiovascular Exam: REGULAR RHYTHM, +S1, +S2. absent: Gallop, RRR, Rubs - GI/Abdominal Exam GI & Abdominal Exam: Normal Bowel Sounds, Soft. absent: Distended, Organomegaly , Tenderness - Extremities Exam Extremities exam: Positive for: normal inspection. Negative for: full ROM, joint swelling, pedal edema, tenderness - Back Exam Back exam: NORMAL INSPECTION. absent: CVA tenderness (L), CVA tenderness (R), paraspinal tenderness - Neurological Exam Neurological exam: Oriented x3 - Psychiatric Exam Psychiatric exam: Normal Affect, Normal Mood - Skin Skin Exam: Dry, Intact Assessment and Plan - Assessment and Plan (Free Text) Assessment: 86 year old male with a past medical history of colon cancer(s/p resection), left eye cancer (s/p excision), bph and hypertension who is being treated for acute asthma exacerbation. Plan: 1. Asthma exacerbation, resolved - f/u influenza - Xopenex NOE and PRN - Budesonide - Duonebs PRN - O2Sat good off O2 - cont prednisone 30mg PO Daily - Pulm consulted, recs appreciated 2.Chest pain likely 2/2 asthma exacerbation and cough, - ACS ruled out - Troponin I negx3 - ASA 81 - LDL panel shows elevated chol and LDL 126, HDL 53 - TSH 0.34 - Cardio recommends to avoid BB for CAD 3. constipation - start Miralax - mag cit also given 4.Hypertension - cont HCTZ 5.BPH - cont Flomax 6. h/o Colon cancer - no acute intervention indicated at this time. - Will monitor closely for any changes in H/H 7. h/o Left eye cancer - No acute intervention indicated at this time. 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 Patient was seen, examined and discussed with attending, Dr. Alex Morris PGY1 <Delbert Johnson - Last Filed: 12/30/16 17:15> Objective - Vital Signs/Intake and Output Vital Signs (last 24 hours): Temp Pulse Resp BP Pulse Ox 98.4 F 74 20 153/89 H 95 12/30/16 06:00 12/30/16 06:00 12/30/16 06:00 12/30/16 06:00 12/30/16 06:00 Intake and Output: 12/30/16 12/30/16 06:59 18:59 Intake Total 600 Output Total 400 Balance 200 - Labs Labs: PT 12.0 SECONDS (9.4-12.5) 12/27/16 12:00 INR 1.09 (0.93-1.08) H 12/27/16 12:00 APTT 32.9 Seconds (25.1-36.5) 12/27/16 12:00 Attending/Attestation - Attestation I have personally seen and examined this patient.: Yes I have fully participated in the care of the patient.: Yes I have reviewed all pertinent clinical information, including history, physical exam and plan: Yes Notes (Text): 12/30/16 16:02 Attending note; Patient seen and examined with resident. Patient is complaining of cough and shortness of breath on exertion/COPD exacerbation. Chest pain resolved. cardiac enzyme negative. Treated oxygen when necessary, IV solumedrol. physical therapy evaluation appreciated. Pulmonary and cardiology evaluation appreciated. we will discharge the patient home with Medrol Dosepak, albuterol inhaler. Upon discharge the patient will follow-up with PMD Dr. Murillo. diagnosis; COPD exacerbation Chest pain Left eye blindness History of colon cancer
[2016-12-30] MEDS: Levalbuterol 0.63 MG/3 ML Inhal Soln UD IH SCH ×3 (01:29→13:32)
[2016-12-30 06:27] VITALS: BP 153/89; PULSE 74; TEMP 98.4; O2SAT 95
[2016-12-30] MEDS: Budesonide 0.5 mg/2 ml Inhal Susp UD IH SCH (07:26)
--- NOTE | 2016-12-30 07:55 | CP.PCM.PCO ---
Addendum Addendum: 12/30/16 07:54 Resident discussed with Deepti (daughter) that pt was medically stable and discharged to go home. She stated that she will be able to come pick him today in the afternoon.
[2016-12-30] MEDS: Enoxaparin 30 mg Syringe SC SCH (09:24)
[2016-12-30] MEDS: MEMANTINE HCL 14 MG PO SCH (09:24)
[2016-12-30] MEDS: POLYETHYLENE GLYCOL 3350 17 GM/Dose PACKET PO SCH (09:25)
--- NOTE | 2016-12-30 17:46 | CP.PCM.DIS ---
<Vineet Morris - Last Filed: 12/30/16 18:32> Provider - Provider Date of Admission: 12/28/16 16:46 Attending physician: Delbert Johnson MD Primary care physician: Tony Ralph MD Time Spent in preparation of Discharge (in minutes): 45 Hospital Course - Lab Results Lab Results: Most Recent Lab Values WBC 4.6 10^3/ul (4.5-11.0) 12/28/16 06:15 RBC 4.07 10^6/uL (3.5-6.1) 12/28/16 06:15 Hgb 13.2 g/dL (14.0-18.0) L 12/28/16 06:15 Hct 39.2 % (42.0-52.0) L 12/28/16 06:15 MCV 96.3 fl (80.0-105.0) 12/28/16 06:15 MCH 32.4 pg (25.0-35.0) 12/28/16 06:15 MCHC 33.7 g/dl (31.0-37.0) 12/28/16 06:15 RDW 12.6 % (11.5-14.5) 12/28/16 06:15 Plt Count 222 10^3/uL (120.0-450.0) 12/28/16 06:15 MPV 9.9 fl (7.0-11.0) 12/28/16 06:15 Gran % 85.7 % (50.0-68.0) H 12/28/16 06:15 Lymph % (Auto) 13.4 % (22.0-35.0) L 12/28/16 06:15 [place] % (Auto) 0.9 % (1.0-6.0) L 12/28/16 06:15 Eos % (Auto) 0.0 % (1.5-5.0) L 12/28/16 06:15 Baso % (Auto) 0.0 % (0.0-3.0) 12/28/16 06:15 Gran # 3.97 (1.4-6.5) 12/28/16 06:15 Lymph # 0.6 (1.2-3.4) L 12/28/16 06:15 [place] # 0.0 (0.1-0.6) L 12/28/16 06:15 Eos # 0.0 (0.0-0.7) 12/28/16 06:15 Baso # 0.00 K/mm3 (0.0-2.0) 12/28/16 06:15 PT 12.0 SECONDS (9.4-12.5) 12/27/16 12:00 INR 1.09 (0.93-1.08) H 12/27/16 12:00 APTT 32.9 Seconds (25.1-36.5) 12/27/16 12:00 D-Dimer, Quantitative 292 ng/mL (0-243) H 12/27/16 12:00 Sodium 145 mmol/L (132-148) 12/28/16 06:15 Potassium 4.7 mmol/L (3.6-5.0) 12/28/16 06:15 Chloride 106 mmol/L (98-107) 12/28/16 06:15 Carbon Dioxide 27 mmol/L (21-33) 12/28/16 06:15 Anion Gap 17 (10-20) 12/28/16 06:15 BUN 19 mg/dL (7-21) 12/28/16 06:15 Creatinine 1.3 mg/dL (0.8-1.5) 12/28/16 06:15 Est GFR ( Amer) > 60 12/28/16 06:15 Est GFR (Non-Af Amer) 52 12/28/16 06:15 Random Glucose 124 mg/dL (70-110) H 12/28/16 06:15 Hemoglobin A1c 5.0 % (4.2-6.5) 12/28/16 06:15 Calcium 10.6 mg/dL (8.4-10.5) H 12/28/16 06:15 Phosphorus 3.0 mg/dL (2.5-4.5) 12/27/16 05:45 Magnesium 1.8 mg/dL (1.7-2.2) 12/27/16 05:45 Total Bilirubin 0.9 mg/dL (0.2-1.3) 12/28/16 06:15 AST 29 U/L (17-59) 12/28/16 06:15 ALT 32 U/L (7-56) 12/28/16 06:15 Alkaline Phosphatase 44 U/L (38-126) 12/28/16 06:15 Lactate Dehydrogenase 373 U/L (333-699) 12/27/16 02:00 Total Creatine Kinase 101 U/L (35-230) 12/27/16 02:00 Troponin I < 0.01 ng/mL 12/27/16 18:09 NT-Pro-B Natriuret Pep 99.0 pg/mL (0-450) 12/27/16 02:00 Total Protein 7.6 g/dL (5.8-8.3) 12/28/16 06:15 Albumin 4.2 g/dL (3.0-4.8) 12/28/16 06:15 Globulin 3.4 gm/dL 12/28/16 06:15 Albumin/Globulin Ratio 1.2 (1.1-1.8) 12/28/16 06:15 Triglycerides 50 mg/dL (35-160) 12/28/16 06:15 Cholesterol 209 mg/dL (130-200) H 12/28/16 06:15 LDL Cholesterol Direct 126 mg/dL (0-129) 12/28/16 06:15 HDL Cholesterol 53 mg/dL (29-60) 12/28/16 06:15 TSH 3rd Generation 0.34 mIU/mL (0.46-4.68) L 12/28/16 06:15 - Hospital Course Hospital Course: Mr. Sheets is a 86 year old man with a past medical history of colon cancer (s/ p resection), left eye cancer (s/p excision), BPH, asthma and hypertension who comes in complaining of shortness of breath for the past two months. The patient reports coming in today because the shortness of breath became sever earlier in the day. The patient reports taking his albuterol pump however denies any improvement in his symptoms. The patient also reports a recent URI about one week ago. The patient also reports chest pain that is located bilaterally on his chest with no radiation that started today. The patient was transferred to telemetry unit for monitoring. CXR was negative. Troponin I negative x3. EKG shows 1st degree AV block but no other changes. LE US was negative for DVT. Cardio and Pulm were consulted and recs were followed. Patient improved on Xopenex. On morning of d/c, pt was comfortable and not experiencing cp, sob, wheezing or any other discomfort. Daughter was contacted regarding picking up the patient, and he was discharged on 12/29/16 however he could only be picked up today on 12/30/16. Patient will f/u Dr. Vale. - Date & Time of H&P Date of H&P: 12/27/16 Time of H&P: 03:38 Discharge Exam - Additional Findings Additional findings: - Head Exam Head Exam: ATRAUMATIC, NORMAL INSPECTION, NORMOCEPHALIC - Eye Exam Eye Exam: EOMI Pupil Exam: NORMAL ACCOMODATION Additional comments: Left eye s/p resection, visually impaired b/l - ENT Exam ENT Exam: Mucous Membranes Moist, Normal Exam. absent: Normal Oropharynx, TM's Normal Bilaterally Additional comments: Difficulty hearing - Neck Exam Neck exam: Positive for: Normal Inspection. Negative for: Lymphadenopathy, Thyromegaly - Respiratory Exam Respiratory Exam: Normal Breath Sounds. absent: Prolonged Expiratory Phase, Respiratory Distress, Stridor - Cardiovascular Exam Cardiovascular Exam: REGULAR RHYTHM, +S1, +S2. absent: Gallop, RRR, Rubs - GI/Abdominal Exam GI & Abdominal Exam: Normal Bowel Sounds, Soft. absent: Distended, Organomegaly , Tenderness - Extremities Exam Extremities exam: Positive for: normal inspection. Negative for: full ROM, joint swelling, pedal edema, tenderness - Back Exam Back exam: NORMAL INSPECTION. absent: CVA tenderness (L), CVA tenderness (R), paraspinal tenderness - Neurological Exam Neurological exam: Oriented x3 - Psychiatric Exam Psychiatric exam: Normal Affect, Normal Mood - Skin Skin Exam: Dry, Intact Discharge Plan - Discharge Medications Prescriptions: Albuterol HFA [Ventolin HFA 90 mcg/actuation (8 g)] 1 puff IH Q6 PRN #1 inhaler PRN Reason: Shortness Of Breath Aspirin [Ecotrin] 81 mg PO 0800 #15 tabec Fluticasone/Vilanterol [Breo Ellipta 100-25 Mcg INH] 1 each IH Q72 30 Days blst.w.dev hydroCHLOROthiazide [Microzide] 12.5 mg PO DAILY #15 cap Memantine HCl [Namenda Xr] 14 mg PO DAILY #15 cap.spr.24 Methylprednisolone [Medrol Dose Pack (21 tabs)] 4 mg PO DAILY #21 mg QUEtiapine [Seroquel] 12.5 mg PO HS PRN #30 tab PRN Reason: Agitation Tamsulosin [Flomax] 0.4 mg PO DAILY #30 cap - Follow Up Plan Condition: FAIR Disposition: HOME/ ROUTINE Instructions: Chest Pain (DC), COPD (Chronic Obstructive Pulmonary Disease) ( GEN), Dyspnea (GEN) Additional Instructions: 1. Follow up with PMD Dr. Murillo in 3 days. 2. Follow up with Dr. zuñiga pulmonary in 1 week. 3. Follow up with Dr. hardy cardiology. 4. Take your medications as prescribed. Referrals: Keith Hardy MD [Staff Provider] - Tony Ralph MD [Primary Care Provider] - Rico Zuñiga MD [Staff Provider] - <Delbert Johnson - Last Filed: 12/30/16 18:40> Provider - Provider Date of Admission: 12/28/16 16:46 Attending physician: Delbert Johnson MD Primary care physician: Tony Ralph MD Hospital Course - Lab Results Lab Results: Most Recent Lab Values WBC 4.6 10^3/ul (4.5-11.0) 12/28/16 06:15 RBC 4.07 10^6/uL (3.5-6.1) 12/28/16 06:15 Hgb 13.2 g/dL (14.0-18.0) L 12/28/16 06:15 Hct 39.2 % (42.0-52.0) L 12/28/16 06:15 MCV 96.3 fl (80.0-105.0) 12/28/16 06:15 MCH 32.4 pg (25.0-35.0) 12/28/16 06:15 MCHC 33.7 g/dl (31.0-37.0) 12/28/16 06:15 RDW 12.6 % (11.5-14.5) 12/28/16 06:15 Plt Count 222 10^3/uL (120.0-450.0) 12/28/16 06:15 MPV 9.9 fl (7.0-11.0) 12/28/16 06:15 Gran % 85.7 % (50.0-68.0) H 12/28/16 06:15 Lymph % (Auto) 13.4 % (22.0-35.0) L 12/28/16 06:15 [place] % (Auto) 0.9 % (1.0-6.0) L 12/28/16 06:15 Eos % (Auto) 0.0 % (1.5-5.0) L 12/28/16 06:15 Baso % (Auto) 0.0 % (0.0-3.0) 12/28/16 06:15 Gran # 3.97 (1.4-6.5) 12/28/16 06:15 Lymph # 0.6 (1.2-3.4) L 12/28/16 06:15 [place] # 0.0 (0.1-0.6) L 12/28/16 06:15 Eos # 0.0 (0.0-0.7) 12/28/16 06:15 Baso # 0.00 K/mm3 (0.0-2.0) 12/28/16 06:15 PT 12.0 SECONDS (9.4-12.5) 12/27/16 12:00 INR 1.09 (0.93-1.08) H 12/27/16 12:00 APTT 32.9 Seconds (25.1-36.5) 12/27/16 12:00 D-Dimer, Quantitative 292 ng/mL (0-243) H 12/27/16 12:00 Sodium 145 mmol/L (132-148) 12/28/16 06:15 Potassium 4.7 mmol/L (3.6-5.0) 12/28/16 06:15 Chloride 106 mmol/L (98-107) 12/28/16 06:15 Carbon Dioxide 27 mmol/L (21-33) 12/28/16 06:15 Anion Gap 17 (10-20) 12/28/16 06:15 BUN 19 mg/dL (7-21) 12/28/16 06:15 Creatinine 1.3 mg/dL (0.8-1.5) 12/28/16 06:15 Est GFR ( Amer) > 60 12/28/16 06:15 Est GFR (Non-Af Amer) 52 12/28/16 06:15 Random Glucose 124 mg/dL (70-110) H 12/28/16 06:15 Hemoglobin A1c 5.0 % (4.2-6.5) 12/28/16 06:15 Calcium 10.6 mg/dL (8.4-10.5) H 12/28/16 06:15 Phosphorus 3.0 mg/dL (2.5-4.5) 12/27/16 05:45 Magnesium 1.8 mg/dL (1.7-2.2) 12/27/16 05:45 Total Bilirubin 0.9 mg/dL (0.2-1.3) 12/28/16 06:15 AST 29 U/L (17-59) 12/28/16 06:15 ALT 32 U/L (7-56) 12/28/16 06:15 Alkaline Phosphatase 44 U/L (38-126) 12/28/16 06:15 Lactate Dehydrogenase 373 U/L (333-699) 12/27/16 02:00 Total Creatine Kinase 101 U/L (35-230) 12/27/16 02:00 Troponin I < 0.01 ng/mL 12/27/16 18:09 NT-Pro-B Natriuret Pep 99.0 pg/mL (0-450) 12/27/16 02:00 Total Protein 7.6 g/dL (5.8-8.3) 12/28/16 06:15 Albumin 4.2 g/dL (3.0-4.8) 12/28/16 06:15 Globulin 3.4 gm/dL 12/28/16 06:15 Albumin/Globulin Ratio 1.2 (1.1-1.8) 12/28/16 06:15 Triglycerides 50 mg/dL (35-160) 12/28/16 06:15 Cholesterol 209 mg/dL (130-200) H 12/28/16 06:15 LDL Cholesterol Direct 126 mg/dL (0-129) 12/28/16 06:15 HDL Cholesterol 53 mg/dL (29-60) 12/28/16 06:15 TSH 3rd Generation 0.34 mIU/mL (0.46-4.68) L 12/28/16 06:15 Attending/Attestation - Attestation I have personally seen and examined this patient.: Yes I have fully participated in the care of the patient.: Yes I have reviewed all pertinent clinical information, including history, physical exam and plan: Yes Notes (Text): 12/30/16 18:39 Attending note; Patient seen and examined with resident. Patient is complaining of cough and shortness of breath on exertion/COPD exacerbation. Chest pain resolved. cardiac enzyme negative. Treated oxygen when necessary, IV solumedrol. physical therapy evaluation appreciated. Pulmonary and cardiology evaluation appreciated. we will discharge the patient home with Medrol Dosepak, albuterol inhaler. family was not available yesterday to discharge patient home. patient will be discharged with Daughter today. Upon discharge the patient will follow-up with PMD Dr. Murillo. diagnosis; COPD exacerbation Chest pain Left eye blindness History of colon cancer
== END 2016-12-30 15:09 | disposition home or self-care (01) | DRG 192 ==
LOC: ED 00:57 → ERH 02:57 → 2RNO 04:09 → OBSVTOIN 12-28 16:46
PROVIDERS: ADMIT Internal Medicine; ATTEND Internal Medicine
PROC: 3E0F7GC Introduction of Other Therapeutic Substance into Respiratory Tract, Via Natural or Artificial Opening (ICD-10-PCS; principal; 2016-12-27)
DX: J44.1 Chronic obstructive pulmonary disease with (acute) exacerbation (principal); J44.0 Chronic obstructive pulmonary disease with (acute) lower respiratory infection; J20.9 Acute bronchitis, unspecified; I45.10 Unspecified right bundle-branch block; D64.9 Anemia, unspecified; I10 Essential (primary) hypertension; N40.0 Benign prostatic hyperplasia without lower urinary tract symptoms; F10.10 Alcohol abuse, uncomplicated; K59.00 Constipation, unspecified; H91.90 Unspecified hearing loss, unspecified ear; H40.9 Unspecified glaucoma; Z85.840 Personal history of malignant neoplasm of eye; Z85.038 Personal history of other malignant neoplasm of large intestine; Z87.891 Personal history of nicotine dependence

== ENCOUNTER 2017-01-13 13:15 | Observation (INO) | payer MEDICARE, MEDICAID ==
[2017-01-13 13:17] VITALS: BMI 29.5
--- NOTE | 2017-01-13 13:38 | ED PDOC ---
Arrival/HPI - General Time Seen by Provider: 01/13/17 13:28 - Critical Care Narrative Critical Care (Text): 86 y/o woman w/ pmhx of colon ca s/p resection, left eye cancer s/p excision, htn, copd/bronchial asthma, recent visit for copd exacerbation with TX ruled out w/ serial ce's/ekg's/cardiology consulatation . rt sided subclavian portocath? presents c/o sudden onset left sdied chest pain, raitiing through left neck/left arm, associated w/ mild dizziness but no cold diaphoresis/ palpitations/ n/v/d/recent fevers. ROS (+) chronic cough productive fo whitish yellowish mucoid expectoration . 01/13/17 13:34 Past Medical History - Provider Review Nursing Documentation Reviewed: Yes - Infectious Disease Hx of Infectious Diseases: None - Tetanus Immunization Tetanus Immunization: Unknown - Cardiac Hx Hypertension: Yes - Pulmonary Hx Respiratory Disorders: No - Neurological Hx Neurological Disorder: No - HEENT Hx HEENT Disorder: Yes Hx Blind: Yes (left eye cancer) Hx Deafness: Yes ([id number]) Hx Glaucoma: Yes (right eye) - Renal Hx Renal Disorder: No - Endocrine/Metabolic Hx Endocrine Disorders: No - Hematological/Oncological Hx Blood Disorders: No Hx Cancer: Yes (Colon ca s/p resection) - Integumentary Hx Dermatological Disorder: No - Musculoskeletal/Rheumatological Hx Musculoskeletal Disorders: No Hx Falls: Yes - Gastrointestinal Hx Gastrointestinal Disorders: No - Genitourinary/Gynecological Hx Genitourinary Disorders: Yes Hx Prostate Problems: Yes (BPH) - Psychiatric Hx Psychophysiologic Disorder: No Hx Depression: No Hx Emotional Abuse: No Hx Physical Abuse: No Hx Substance Use: No - Surgical History Other/Comment: colon resection; left eye removal - Anesthesia Hx Anesthesia: Yes Hx Anesthesia Reactions: No Hx Malignant Hyperthermia: No - Suicidal Assessment Feels Threatened In Home Enviroment: No Family/Social History - Physician Review Nursing Documentation Reviewed: Yes Family/Social History: No Known Family HX Smoking Status: Former Smoker Hx Alcohol Use: Yes (occasional) Hx Substance Use: No Hx Substance Use Treatment: No Allergies/Home Meds Allergies/Adverse Reactions: Allergies No Known Allergies Allergy (Verified 12/27/16 01:17) Review of Systems - Physician Review All systems were reviewed & negative as marked: Yes - Review of Systems Constitutional: Normal Eyes: Normal ENT: Normal Respiratory: Cough Cardiovascular: Chest Pain Gastrointestinal: Normal Genitourinary Male: Normal Musculoskeletal: Normal Skin: Normal Neurological: Normal Endocrine: Normal Hemo/Lymphatic: Normal Psychiatric: Normal Physical Exam Vital Signs Reviewed: Yes Vital Signs Pulse Resp BP Pulse Ox 01/13/17 13:25 73 18 148/71 99 Temperature: Afebrile Blood Pressure: Normal Pulse: Regular Respiratory Rate: Normal Appearance: Positive for: Well-Appearing, Non-Toxic, Comfortable Pain Distress: None Mental Status: Positive for: other (alert and oriented x 2 ) - Systems Exam Head: Present: Atraumatic, Normocephalic Pupils: Present: PERRL Extroacular Muscles: Present: EOMI Conjunctiva: Present: Normal Mouth: Present: Moist Mucous Membranes Neck: Present: Normal Range of Motion Respiratory/Chest: Present: Clear to Auscultation, Good Air Exchange, Other ( occasional rhonchi, reduced bs bibsailarly ). No: Respiratory Distress, Accessory Muscle Use Cardiovascular: Present: Regular Rate and Rhythm, Normal S1, S2, Other (neck pain somewhat reproducible in interscalene/inter scm region, rt sided palpable subclavian cord ). No: Murmurs Abdomen: Present: Normal Bowel Sounds, Other (soft, nt, nd). No: Tenderness, Distention, Peritoneal Signs Back: Present: Normal Inspection Upper Extremity: Present: Normal Inspection. No: Cyanosis, Edema Lower Extremity: Present: Normal Inspection. No: Edema Neurological: Present: GCS=15, CN II-XII Intact, Speech Normal, Motor Func Grossly Intact, Normal Sensory Function, Normal Cerebellar Funct, Norm Deep Tendon Reflexes, Gait Normal, Memory Normal, Normal 2Pt Descrimination Skin: Present: Warm, Dry, Normal Color. No: Rashes Psychiatric: Present: Alert, Normal Insight, Normal Concentration, Other ( oriented x [address] ) Medical Decision Making ED Course and Treatment: ekg nsr @ 72 bpm w/ concomitant 1st deg av block , rbbb, biphasic initially downsloping st-t segments 01/13/17 13:40 01/13/17 13:41 86 y/o male w/ aforementioned comorbidities , 07/14 abnormal ttecho/stress test , recent hospitalization, indwelling rt sixded subclavian cath?? p/w sudden onset cp/dizziness somewhat reproducible but atraumatic cp r/o acs : serial ce's ekg's cxr cp r/o pe/dissection - d-dimer likley ct angio chest if GFR can tolerate observation for definitive cardiac risk stratification. Report Date : 01/13/2017 13:57:00 Procedure: Chest xray Dictator : Tito Valles MD IMPRESSION: Moderate constipation 01/13/17 15:28 d-dimer does not meet age adjusted positive cutoff, nonetheless pt suficiently high risk , given recent hospital admission/hx of malignancy to [facility] ct angio r/o pe, given radition to neck, dissection protocol will be used which will not miss pe. - Lab Interpretations Lab Results: 01/13/17 13:55 01/13/17 13:55 Lab Results 01/13/17 13:55: Sodium 141, Chloride 104, Potassium 3.8, Carbon Dioxide 32, Anion Gap 9 L, BUN 17, Creatinine 1.3, Est GFR ( Amer) > 60, Est GFR (Non -Af Amer) 52, Random Glucose 89, Calcium 9.6, Magnesium 1.8, Total Bilirubin 0.8 , AST 19, ALT 34, Alkaline Phosphatase 37 L, Lactate Dehydrogenase 353, Total Creatine Kinase 62, Troponin I < 0.01, NT-Pro-B Natriuret Pep 72.4, Total Protein 6.5, Albumin 3.6, Globulin 2.9, Albumin/Globulin Ratio 1.3 01/13/17 13:55: pO2 38, VBG pH 7.30 L, VBG pCO2 66.0 H*, VBG HCO3 32.5 H, VBG Total CO2 34.5 H, VBG O2 Sat (Calc) 72.3 H, VBG Base Excess 4.0 H, VBG Potassium 3.6, Sodium 141.0, Chloride 106.0, Glucose 90, Lactate 2.2 H, FiO2 21.0, Venous Blood Potassium 3.6 01/13/17 13:55: WBC 4.1 L, RBC 3.65, Hgb 11.9 L, Hct 35.9 L, MCV 98.4, MCH 32.6 , MCHC 33.1, RDW 12.6, Plt Count 181, MPV 9.7, Gran % 51.7, Lymph % (Auto) 37.5 H, [place] % (Auto) 7.4 H, Eos % (Auto) 3.2, Baso % (Auto) 0.2, Gran # 2.09, Lymph # 1.5, [place] # 0.3, Eos # 0.1, Baso # 0.01 01/13/17 13:55: PT 10.6, INR 0.97, APTT 33.3, D-Dimer, Quantitative 533 H - RAD Interpretation Radiology Orders: 01/13/17 13:28 CHEST TWO VIEWS (PA/LAT) [RAD] Stat - Medication Orders Current Medication Orders: Discontinued Medications Aspirin (Ecotrin) 325 mg PO STAT STA Stop: 01/13/17 14:22 Last Admin: 01/13/17 14:29 Dose: 325 mg Disposition/Present on Arrival - Present on Arrival Any Indicators Present on Arrival: No History of DVT/PE: No History of Uncontrolled Diabetes: No Urinary Catheter: No History of Decub. Ulcer: No History Surgical Site Infection Following: None - Disposition Have Diagnosis and Disposition been Completed?: Yes Diagnosis: Chest pain Disposition: HOSPITALIZED Disposition Time: 15:30 Patient Plan: Admission Condition: FAIR Discharge Instructions (ExitCare): Chest Pain (ED) Referrals: Thiago Nick, [Primary Care Provider] - Follow up with primary
[2017-01-13 14:06] LABS: BASO # 0.01 K/mm3 (0.0-2.0); BASO % 0.2 % (0.0-3.0); EOS # 0.1 (0.0-0.7); EOS % 3.2 % (1.5-5.0); GRAN # 2.09 (1.4-6.5); GRAN % 51.7 % (50.0-68.0); HEMATOCRIT 35.9 % (42.0-52.0); LYMPH # 1.5 (1.2-3.4); LYMPH % 37.5 % (22.0-35.0); MEAN CELL VOLUME 98.4 fl (80.0-105.0); MEAN CORPUSCULAR HEMOGLOBIN 32.6 pg (25.0-35.0); MEAN CORPUSCULAR HGB CONC 33.1 g/dl (31.0-37.0); MEAN PLATELET VOLUME 9.7 fl (7.0-11.0); MONO # 0.3 (0.1-0.6); MONO % 7.4 % (1.0-6.0); RED CELL DISTRIBUTION WIDTH 12.6 % (11.5-14.5); WHITE BLOOD COUNT 4.1 10^3/ul (4.5-11.0)
[2017-01-13 14:10] LABS: ALB/GLOB RATIO 1.3 (1.1-1.8); ALKALINE PHOSPHATASE 37 U/L (38-126); ALT/SGPT 34 U/L (7-56); AST/SGOT 19 U/L (17-59); BILIRUBIN,TOTAL 0.8 mg/dL (0.2-1.3); BLOOD UREA NITROGEN 17 mg/dL (7-21); CALCIUM 9.6 mg/dL (8.4-10.5); CARBON DIOXIDE 32 mmol/L (21-33); CHLORIDE 104 mmol/L (98-107); GFR AFRICAN-AMERICAN > 60; GLUCOSE,RANDOM 89 mg/dL (70-110); MAGNESIUM 1.8 mg/dL (1.7-2.2); POTASSIUM 3.8 mmol/L (3.6-5.0); SODIUM 141 mmol/L (132-148); TOTAL PROTEIN 6.5 g/dL (5.8-8.3)
--- NOTE | 2017-01-13 14:16 | RAD ---
HISTORY: cp COMPARISON: 12/27/2016 TECHNIQUE: Chest PA and lateral FINDINGS: LUNGS: No active pulmonary disease. PLEURA: No significant pleural effusion identified. No pneumothorax apparent. CARDIOVASCULAR: Normal. OSSEOUS STRUCTURES: No significant abnormalities. VISUALIZED UPPER ABDOMEN: Normal. OTHER FINDINGS: None. IMPRESSION: No active disease.
[2017-01-13] MEDS ORDERED: Aspirin 325 mg EC Tablets PO STA (14:21)
[2017-01-13 14:22] LABS: TROPONIN I < 0.01 ng/mL
[2017-01-13 14:23] LABS: INR 0.97 (0.93-1.08); PARTIAL THROMBOPLASTIN TIME 33.3 Seconds (25.1-36.5)
[2017-01-13 16:18] LABS: PH,URINE 6.5 (4.7-8.0); URINE BILIRUBIN NEGATIVE (NEGATIVE); URINE BLOOD TRACE-INTACT (NEGATIVE); URINE GLUCOSE (UA) NEGATIVE (NEGATIVE); URINE KETONE NEGATIVE (NEGATIVE); URINE LEUKOCYTE ESTERASE NEGATIVE Leu/uL (NEGATIVE); URINE PROTEIN NEGATIVE mg/dL (<30 mg/dL)
[2017-01-13 16:24] LABS: URINE APPEARANCE CLEAR (CLEAR); URINE COLOR YELLOW (YELLOW)
[2017-01-13 16:26] LABS: URINE WBC 0 - 2 /hpf (0-6)
[2017-01-13] MEDS ORDERED: Albuterol-Ipratrop 3 mg / 0.5 (3 ml) UD IH PRN (16:51)
--- NOTE | 2017-01-13 16:54 | CP.PCM.HP ---
Addendum entered and electronically signed by Vineet Morris DO 01/13/17 19:45 : Correction to assessment: 1. Neck/LUE pain likely musculoskeletal but need to r/o ACS due to risk factors of age, gender, Hx HTN, ethnicity and former smoker. will trend troponin I. Rest of assessments stand as is. Original Note: <Vineet Morris - Last Filed: 01/13/17 17:37> History of Present Illness - History of Present Illness History of Present Illness: Mr. Sheets is a 86 y/o male w/ a PMHx of COPD, colon cancer s/p resection, left eye ca s/p excision, BPH, and HTN who presents w/ intermittent left-sided neck pain which radiates down his left arm and left upper back for the past 2 hours. Daughter, Deepti, is bedside and provides more information about patient. Pt stated that the pain is sharp and electric and worsens when he moves, sits up or strains his neck. Pt lives at home with daughter and attends a daily adult daycare center and states that the pain began right after he turned his neck. Pt also c/o associated left arm numbness and tingling and pain in the left supraclavicular area. Pt states that he did not follow up with Dr. Vale after recent discharge. Pt denies any SOB, fever, chills, night sweats, N/V/D, abd pain, dysphagia, hematurea or dysurea. 12-pt ROS was reviewed and is otherwise unremarkable. PMD: [place]anksha PMHx: Colon CA, Left eye CA, COPD, HTN, inguinal hernia PSHx: Colon cancer resection, left eye excision, inguinal hernia repair Medications: Hydrochlorothiazide, Tamsulosin, Seroquel, Medrol, Namenda, ASA, Albuterol, Fluticasone/Vilanterol Allergies: NKDA SHx: Denies any illicit drug use, former smoker - [employer] for 57 years, quit in 1999. Pt admits to drinking whiskey 2-3 times a month. lives with daughterDeepti Present on Admission - Present on Admission Any Indicators Present on Admission: No History of DVT/PE: No History of Uncontrolled Diabetes: No Urinary Catheter: No Decubitus Ulcer Present: No Review of Systems - Review of Systems All systems: reviewed and no additional remarkable complaints except (as per HPI ) Past Patient History - Infectious Disease Hx of Infectious Diseases: None - Tetanus Immunizations Tetanus Immunization: Unknown - Past Social History Smoking Status: Former Smoker Alcohol: None Drugs: Denies Home Situation {Lives}: With Family - CARDIAC Hx Hypertension: Yes - PULMONARY Hx Respiratory Disorders: Yes Hx Chronic Obstructive Pulmonary Disease (COPD): Yes - NEUROLOGICAL Hx Neurological Disorder: No - HEENT Hx HEENT Problems: Yes Hx Blind: Yes (left eye cancer) Hx Deafness: Yes ([id number]) Hx Glaucoma: Yes (right eye) - RENAL Hx Chronic Kidney Disease: No - ENDOCRINE/METABOLIC Hx Endocrine Disorders: No - HEMATOLOGICAL/ONCOLOGICAL Hx Blood Disorders: No Hx Cancer: Yes (Colon ca s/p resection) - INTEGUMENTARY Hx Dermatological Problems: No - MUSCULOSKELETAL/RHEUMATOLOGICAL Hx Musculoskeletal Disorders: No Hx Falls: Yes - GASTROINTESTINAL Hx Gastrointestinal Disorders: No - GENITOURINARY/GYNECOLOGICAL Hx Genitourinary Disorders: Yes Hx Prostate Problems: Yes (BPH) - PSYCHIATRIC Hx Psychophysiologic Disorder: No Hx Depression: No Hx Emotional Abuse: No Hx Physical Abuse: No Hx Substance Use: No - SURGICAL HISTORY Other/Comment: colon resection; left eye removal - ANESTHESIA Hx Anesthesia: Yes Hx Anesthesia Reactions: No Hx Malignant Hyperthermia: No Meds Allergies/Adverse Reactions: Allergies Allergy/AdvReac Type Severity Reaction Status Date / Time No Known Allergies Allergy Verified 01/13/17 19:55 Physical Exam - Constitutional Appears: Well, Non-toxic, No Acute Distress - Head Exam Head Exam: ATRAUMATIC, NORMAL INSPECTION, NORMOCEPHALIC - Eye Exam Additional comments: L eye s/p excision R eye poor vision - ENT Exam ENT Exam: Mucous Membranes Moist, Normal Exam - Neck Exam Neck exam: Positive for: Normal Inspection, Tenderness (w/ palpation R side) - Respiratory Exam Respiratory Exam: Rhonchi (mild diffuse), NORMAL BREATHING PATTERN. absent: Rales, Wheezes - Cardiovascular Exam Cardiovascular Exam: RRR, +S1, +S2. absent: Gallop, JVD, Rubs, Systolic Murmur - GI/Abdominal Exam GI & Abdominal Exam: Normal Bowel Sounds, Soft. absent: Distended, Tenderness - Extremities Exam Extremities exam: Positive for: normal inspection, pedal edema (1+) - Back Exam Back exam: NORMAL INSPECTION - Neurological Exam Neurological exam: Alert, Oriented x3 - Psychiatric Exam Psychiatric exam: Normal Affect, Normal Mood - Skin Skin Exam: Normal Color, Warm Results - Vital Signs Recent Vital Signs: Last Vital Signs Temp Pulse 77 01/13/17 16:17 Resp 16 01/13/17 16:17 BP 141/77 01/13/17 16:17 Pulse Ox 96 01/13/17 16:17 - Labs Result Diagrams: 01/13/17 13:55 01/13/17 13:55 Labs: Laboratory Results - last 24 hr 01/13/17 15:33 Urine Color Yellow Urine Appearance Clear Urine pH 6.5 Ur Specific [place] 1.010 Urine Protein Negative Urine Glucose (UA) Negative Urine Ketones Negative Urine Blood Trace-intact H Urine Nitrate Negative Urine Bilirubin Negative Urine Urobilinogen 1.0 H Ur Leukocyte Esterase Negative Urine RBC 2 - 5 Urine WBC 0 - 2 Assessment & Plan - Assessment and Plan (Free Text) Assessment: 86 year old male with a past medical history of colon cancer(s/p resection), left eye cancer (s/p excision), bph and hypertension who is being treated for acute COPD exacerbation Plan: 1. COPD exacerbation - Duonebs PRN - O2Sat good off O2 - cont solu-medrol 20mg q12 - elevated d-dimer - f/u CTA chest - Pulm consulted, recs appreciated - Cardio consulted, recs appreciated - PT/OT eval 2.Hypertension - cont HCTZ 3.BPH - cont Flomax 4. h/o Colon cancer - no acute intervention indicated at this time - Will monitor closely for any changes in H/H 5. h/o Left eye cancer - No acute intervention indicated at this time. - staff is informed that pt is visually impaired 6. 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 Alex Morris PGY1 - Date & Time Date: 01/13/17 Time: 17:38 <Delbert Johnson - Last Filed: 01/14/17 15:59> Results - Vital Signs Recent Vital Signs: Last Vital Signs Temp 98.6 F 01/14/17 11:46 Pulse 67 01/14/17 11:46 Resp 16 01/14/17 11:46 BP 145/81 01/14/17 11:46 Pulse Ox 98 11/17/17 11:46 - Labs Result Diagrams: 01/14/17 06:20 01/14/17 06:20 Labs: Laboratory Results - last 24 hr 01/13/17 01/13/17 01/13/17 15:33 18:21 21:27 WBC RBC Hgb Hct MCV MCH MCHC RDW Plt Count MPV PT INR pO2 23 L VBG pH 7.32 VBG pCO2 65.0 H VBG HCO3 33.5 H VBG Total CO2 35.5 H VBG O2 Sat (Calc) 47.5 VBG Base Excess 5.3 H VBG Potassium 4.0 Sodium 139.0 Chloride 105.0 Glucose 94 Lactate 1.0 FiO2 21.0 Potassium Carbon Dioxide Anion Gap BUN Creatinine Est GFR ( Amer) Est GFR (Non-Af Amer) Random Glucose Calcium Total Bilirubin AST ALT Alkaline Phosphatase Lactate Dehydrogenase 354 Total Creatine Kinase 53 Troponin I < 0.01 Total Protein Albumin Globulin Albumin/Globulin Ratio Venous Blood Potassium 4.0 Urine Color Yellow Urine Appearance Clear Urine pH 6.5 Ur Specific [place] 1.010 Urine Protein Negative Urine Glucose (UA) Negative Urine Ketones Negative Urine Blood Trace-intact H Urine Nitrate Negative Urine Bilirubin Negative Urine Urobilinogen 1.0 H Ur Leukocyte Esterase Negative Urine RBC 2 - 5 Urine WBC 0 - 2 01/14/17 01/14/17 01/14/17 06:20 06:20 06:20 WBC 3.6 L RBC 3.99 Hgb 13.1 L Hct 38.6 L MCV 96.7 MCH 32.8 MCHC 33.9 RDW 12.4 Plt Count 198 MPV 10.0 PT 10.6 INR 0.96 pO2 VBG pH VBG pCO2 VBG HCO3 VBG Total CO2 VBG O2 Sat (Calc) VBG Base Excess VBG Potassium Sodium 141 Chloride 107 Glucose Lactate FiO2 Potassium 4.5 Carbon Dioxide 28 Anion Gap 11 BUN 16 Creatinine 1.3 Est GFR ( Amer) > 60 Est GFR (Non-Af Amer) 52 Random Glucose 116 H Calcium 9.9 Total Bilirubin 1.1 AST 25 ALT 24 Alkaline Phosphatase 48 Lactate Dehydrogenase 397 Total Creatine Kinase 69 Troponin I < 0.01 Total Protein 7.4 Albumin 4.0 Globulin 3.4 Albumin/Globulin Ratio 1.2 Venous Blood Potassium Urine Color Urine Appearance Urine pH Ur Specific [place] Urine Protein Urine Glucose (UA) Urine Ketones Urine Blood Urine Nitrate Urine Bilirubin Urine Urobilinogen Ur Leukocyte Esterase Urine RBC Urine WBC Attending/Attestation - Attestation I have personally seen and examined this patient.: Yes I have fully participated in the care of the patient.: Yes I have reviewed all pertinent clinical information: Yes Notes (Text): 01/14/17 15:58 Attending note; Patient seen and examined with resident in ER. Patient's daughter by the bedside. Patient is [id number] male with a past medical history of COPD, colon cancer s/p resection, left eye cancer s/p excision, BPH, and HTN who presents with intermittent left-sided neck pain which radiates down his left arm. Most likely musculoskeletal pain. Will rule out ACS. Admit to telemetry. Cardiac enzymes 3 ordered. Cardiology evaluation requested. COPD; continue DuoNeb treatment. Possible discharge home tomorrow if clinically stable. Upon discharge the patient will follow up with PMD .
[2017-01-13] MEDS: Pantoprazole 40 mg EC Tab PO SCH (17:24)
[2017-01-13] MEDS: MEMANTINE HCL 14 MG PO SCH (17:46)
[2017-01-13 18:25] LABS: VENOUS BLOOD GAS BASE EXCESS 5.3 mmol/L (0.0-2.0); VENOUS BLOOD PH 7.32 (7.32-7.43)
--- NOTE | 2017-01-13 18:25 | CT ---
CTA chest, abdomen, and pelvis with IV contrast Indication: r/o dissection vs pe Technique: Contiguous axial images of the chest, abdomen, and pelvis. Coronal and Sagittal reformats generated and reviewed. This CT exam was performed using 1 or more of the following dose reduction techniques: Automated exposure control, adjustment of the MAA and/or kV according to patient size, and/or use of iterative reconstruction technique. Contrast: 144 cc Omnipaque 350 Radiation dose: Total exam DLP = 1742.96 MGy-cm. Comparison: CT abdomen pelvis without contrast performed 11/13/15 Findings: Right-sided MediPort extends to the SVC. Visualized portions of the inferior thyroid gland heterogeneous with tiny bilateral hypodense nodules. The mediastinal and hilar vascular structures appear within normal limits. The heart appears within normal limits of size. No large central or segmental pulmonary embolus evident. No focal consolidation. No pleural effusion. No pneumothorax. No suspicious pulmonary nodules measuring greater than 5 mm. Fatty atrophy of the pancreas. Fluid and debris within the stomach. Bilateral renal cysts. The liver, spleen, pancreas, adrenal glands, and gallbladder appear unremarkable. Moderate constipation. The bowel loops appear within normal limits of caliber without evidence of intestinal obstruction. The appendix appears within normal limits of caliber. No secondary signs of acute appendicitis. There is no definite free air. The prostate gland measures approximately 5.2 x 6.2 cm. The urinary bladder appears unremarkable. Degenerative changes. Facet hypertrophy. Impression: No large central or segmental pulmonary embolus identified. No evidence of aortic aneurysm or dissection. Enlarged prostate gland. Recommend correlation with PSA. Additional incidental findings as above.
[2017-01-13] MEDS ORDERED: Influenza Vaccine 60 mcg/0.5 mL SYR (4YR UP) IM ONE (21:18)
[2017-01-13] MEDS ORDERED: Pneumococcal 23-Valent Vaccine IM ONE (21:18)
--- NOTE | 2017-01-13 21:49 | CARD ---
APPROVED REPORT EKG Measurement Heart [id number] <Conclusion> Sinus rhythm with 1st degree AV block with premature supraventricular complexes Right bundle branch block Abnormal ECG
[2017-01-13 21:55] LABS: TROPONIN I < 0.01 ng/mL
[2017-01-13] MEDS: MethylPREDNISolone 40 mg Vial IVP SCH (22:00)
[2017-01-14 06:53] LABS: HEMATOCRIT 38.6 % (42.0-52.0); MEAN CELL VOLUME 96.7 fl (80.0-105.0); MEAN CORPUSCULAR HEMOGLOBIN 32.8 pg (25.0-35.0); MEAN CORPUSCULAR HGB CONC 33.9 g/dl (31.0-37.0); RED CELL DISTRIBUTION WIDTH 12.4 % (11.5-14.5); WHITE BLOOD COUNT 3.6 10^3/ul (4.5-11.0)
[2017-01-14 07:09] LABS: INR 0.96 (0.93-1.08)
[2017-01-14 07:26] LABS: TROPONIN I < 0.01 ng/mL
[2017-01-14 07:52] LABS: ALB/GLOB RATIO 1.2 (1.1-1.8); ALKALINE PHOSPHATASE 48 U/L (38-126); ALT/SGPT 24 U/L (7-56); AST/SGOT 25 U/L (17-59); BILIRUBIN,TOTAL 1.1 mg/dL (0.2-1.3); BLOOD UREA NITROGEN 16 mg/dL (7-21); CALCIUM 9.9 mg/dL (8.4-10.5); CARBON DIOXIDE 28 mmol/L (21-33); CHLORIDE 107 mmol/L (98-107); GFR AFRICAN-AMERICAN > 60; GLUCOSE,RANDOM 116 mg/dL (70-110); POTASSIUM 4.5 mmol/L (3.6-5.0); SODIUM 141 mmol/L (132-148); TOTAL PROTEIN 7.4 g/dL (5.8-8.3)
[2017-01-14] MEDS ORDERED: Budesonide 0.5 mg/2 ml Inhal Susp UD IH SCH (08:00)
[2017-01-14] MEDS ORDERED: Arformoterol 15 mcg/2 ml Inh Sol IH SCH (08:00)
--- NOTE | 2017-01-14 08:02 | CON ---
PULMONARY CONSULTATION REASON FOR CONSULTATION: Chest pain. REFERRING PHYSICIAN: Dr. Johnson. HISTORY OF PRESENT ILLNESS: The patient is an 86-year-old male, with past medical history significant for chronic obstructive pulmonary disease, positive extensive smoking history, colon cancer, status post resective surgery, left eye surgery, legal blindness, who presents to [facility] with acute onset of left-sided chest pain. The patient is not short of breath at rest. He does have chronic dyspnea on exertion-which has not changed. He also has a chronic minimal cough with occasional sputum production-also unchanged. There is no history of coughing up of blood. There is no history of worsening chest pain with deep respirations. There is no history of temperatures, chills or infectious exposure. There is no history of night sweats, weight loss or appetite change prior to the above events. There is no history of leg or calf pains. No history of syncope or diaphoresis. No history of recent travel or trauma. REVIEW OF SYSTEMS: No history of nausea, vomiting or diarrhea. No acute urinary symptoms. No new neurologic complaints. Rest of the review of systems negative. ALLERGIES: NO KNOWN ALLERGIES. SOCIAL HISTORY: Positive for extensive tobacco usage. No alcohol. FAMILY HISTORY: No inheritable diseases. HOME MEDICATIONS: Include Microzide, Flomax, Seroquel, Medrol Dosepak, Breo Ellipta, Ecotrin, albuterol HFA. PHYSICAL EXAMINATION: GENERAL: The patient appears comfortable this morning. He is not short of breath at rest. He states his chest pain is almost gone. VITAL SIGNS: Temperature is 98.3, pulse is 73, respirations 18/20, blood pressure 135/74. Oxygen saturation on nasal cannula is 97% to 99%. HEENT: Normocephalic, atraumatic. NECK: No JVD. CARDIOVASCULAR: Systolic ejection murmur at the lower left sternal border. No S3 gallop. LUNGS: Clear bilaterally. EXTREMITIES: No clubbing, cyanosis or edema. Calves are nontender to palpation. GI: Abdomen is soft, nontender and nondistended. Bowel sounds are positive. SKIN: No acute rash. NEUROLOGIC: Limited at the present time. PERTINENT LABORATORY DATA: CAT scan of the chest was done as an angiogram protocol. There is no pulmonary embolism or aortic dissection noted. There is also no focal consolidation, pleural effusion, mass or nodule noted. There is no lymphadenopathy. CBC: White count 3.6, hemoglobin 13.1, hematocrit 38.6, platelets of 198. D-dimer is slightly elevated at 533. Complete metabolic profile: Alkaline phosphatase 37. Rest of the metabolic profiles within normal limits. IMPRESSION: 1. Chest pain-resolving. 2. Chronic obstructive pulmonary disease. 3. Mild anemia. 4. History of colon cancer. 5. Hypertension. PLAN: The patient presents to [facility] with acute onset of left-sided chest pain-starting about 2 hours prior to his arrival at the emergency room. He offers no other new pulmonary symptoms. I did review the CAT scan of the chest-done as an angiogram protocol. The CAT scan angiogram is negative for pulmonary embolism or aortic dissection. The CAT scan is also negative for any acute pulmonary abnormalities. On physical exam, the patient's lungs are clear. Oxygen saturation on nasal cannula is 97% to 99%. I would continue with the current nebulizer treatments and advise changing back to oral steroids. The patient was on Medrol as an outpatient. As above, the patient states that his chest pain is "almost gone". His clinical status is significantly improved-compared to yesterday. Additional pulmonary intervention will be based on the clinical status of the patient. I did discuss the above with Dr. Johnson. Thank you very much for this pulmonary consultation. Rico Zuñiga MD [facility]
[2017-01-14] MEDS ORDERED: POLYETHYLENE GLYCOL 3350 17 GM/Dose PACKET PO SCH (10:00)
[2017-01-14] MEDS: Pantoprazole 40 mg EC Tab PO SCH (10:16)
[2017-01-14] MEDS: MethylPREDNISolone 40 mg Vial IVP SCH (10:16)
[2017-01-14] MEDS: MEMANTINE HCL 14 MG PO SCH (10:18)
[2017-01-14 11:59] VITALS: BP 145/81; PULSE 67; RESP 16; TEMP 98.6; O2SAT 98
--- NOTE | 2017-01-14 13:43 | CP.PCM.PCO ---
Addendum Addendum: 01/14/17 13:41 Daughter, Deepti, was contacted and told that the patient is discharged and will be going home today whenever she is ready to pick him up. Daughter was also asked if the patient had all the needed meds and nebulizer treatments/ equipment at home and she stated that he does have all his meds and does not require any refills. It was explained to her that he would be prescribed one more (medrol dose pack) and that he would need to follow up with Dr. Vale after discharge.
--- NOTE | 2017-01-14 19:14 | CP.PCM.DIS ---
<Vineet Morris - Last Filed: 01/14/17 19:06> Provider - Provider Date of Admission: 01/13/17 15:31 Attending physician: Delbert Johnson MD Time Spent in preparation of Discharge (in minutes): 40 Hospital Course - Lab Results Lab Results: Micro Results 01/13/17 15:33 Urine,Clean Catch Urine Culture - Final No Growth (<1,000 CFU/ML) Most Recent Lab Values WBC 3.6 10^3/ul (4.5-11.0) L 01/14/17 06:20 RBC 3.99 10^6/uL (3.5-6.1) 01/14/17 06:20 Hgb 13.1 g/dL (14.0-18.0) L 01/14/17 06:20 Hct 38.6 % (42.0-52.0) L 01/14/17 06:20 MCV 96.7 fl (80.0-105.0) 01/14/17 06:20 MCH 32.8 pg (25.0-35.0) 01/14/17 06:20 MCHC 33.9 g/dl (31.0-37.0) 01/14/17 06:20 RDW 12.4 % (11.5-14.5) 01/14/17 06:20 Plt Count 198 10^3/uL (120.0-450.0) 01/14/17 06:20 MPV 10.0 fl (7.0-11.0) 01/14/17 06:20 Gran % 51.7 % (50.0-68.0) 01/13/17 13:55 Lymph % (Auto) 37.5 % (22.0-35.0) H 01/13/17 13:55 Ashe % (Auto) 7.4 % (1.0-6.0) H 01/13/17 13:55 Eos % (Auto) 3.2 % (1.5-5.0) 01/13/17 13:55 Baso % (Auto) 0.2 % (0.0-3.0) 01/13/17 13:55 Gran # 2.09 (1.4-6.5) 01/13/17 13:55 Lymph # 1.5 (1.2-3.4) 01/13/17 13:55 Ashe # 0.3 (0.1-0.6) 01/13/17 13:55 Eos # 0.1 (0.0-0.7) 01/13/17 13:55 Baso # 0.01 K/mm3 (0.0-2.0) 01/13/17 13:55 PT 10.6 SECONDS (9.4-12.5) 01/14/17 06:20 INR 0.96 (0.93-1.08) 01/14/17 06:20 APTT 33.3 Seconds (25.1-36.5) 01/13/17 13:55 D-Dimer, Quantitative 533 ng/mL (0-243) H 01/13/17 13:55 pO2 23 mm/Hg (30-55) L 01/13/17 18:21 VBG pH 7.32 (7.32-7.43) 01/13/17 18:21 VBG pCO2 65.0 (40-60) H 01/13/17 18:21 VBG HCO3 33.5 mmol/l (21-28) H 01/13/17 18:21 VBG Total CO2 35.5 mmol.L (22-28) H 01/13/17 18:21 VBG O2 Sat (Calc) 47.5 % (40-65) 01/13/17 18:21 VBG Base Excess 5.3 mmol/L (0.0-2.0) H 01/13/17 18:21 VBG Potassium 4.0 mmol/L (3.6-5.2) 01/13/17 18:21 Sodium 139.0 mmol/L (132-148) 01/13/17 18:21 Chloride 105.0 mmol/L (98-107) 01/13/17 18:21 Glucose 94 mg/dl (75-110) 01/13/17 18:21 Lactate 1.0 mmol/L (0.7-2.1) 01/13/17 18:21 FiO2 21.0 % 01/13/17 18:21 Sodium 141 mmol/L (132-148) 01/14/17 06:20 Potassium 4.5 mmol/L (3.6-5.0) 01/14/17 06:20 Chloride 107 mmol/L (98-107) 01/14/17 06:20 Carbon Dioxide 28 mmol/L (21-33) 01/14/17 06:20 Anion Gap 11 (10-20) 01/14/17 06:20 BUN 16 mg/dL (7-21) 01/14/17 06:20 Creatinine 1.3 mg/dl (0.8-1.5) 01/14/17 06:20 Est GFR ( Amer) > 60 01/14/17 06:20 Est GFR (Non-Af Amer) 52 01/14/17 06:20 Random Glucose 116 mg/dL (70-110) H 01/14/17 06:20 Calcium 9.9 mg/dL (8.4-10.5) 01/14/17 06:20 Magnesium 1.8 mg/dL (1.7-2.2) 01/13/17 13:55 Total Bilirubin 1.1 mg/dL (0.2-1.3) 01/14/17 06:20 AST 25 U/L (17-59) 01/14/17 06:20 ALT 24 U/L (7-56) 01/14/17 06:20 Alkaline Phosphatase 48 U/L (38-126) 01/14/17 06:20 Lactate Dehydrogenase 397 U/L (333-699) 01/14/17 06:20 Total Creatine Kinase 69 U/L (35-230) 01/14/17 06:20 Troponin I < 0.01 ng/mL 01/14/17 06:20 NT-Pro-B Natriuret Pep 72.4 pg/mL (0-450) 01/13/17 13:55 Total Protein 7.4 g/dL (5.8-8.3) 01/14/17 06:20 Albumin 4.0 g/dL (3.0-4.8) 01/14/17 06:20 Globulin 3.4 gm/dL 01/14/17 06:20 Albumin/Globulin Ratio 1.2 (1.1-1.8) 01/14/17 06:20 Venous Blood Potassium 4.0 mmol/L (3.6-5.2) 01/13/17 18:21 Urine Color Yellow (YELLOW) 01/13/17 15:33 Urine Appearance Clear (CLEAR) 01/13/17 15:33 Urine pH 6.5 (4.7-8.0) 01/13/17 15:33 Ur Specific [place] 1.010 (1.005-1.035) 01/13/17 15:33 Urine Protein Negative mg/dL (<30 mg/dL) 01/13/17 15:33 Urine Glucose (UA) Negative mg/dL (NEGATIVE) 01/13/17 15:33 Urine Ketones Negative mg/dL (NEGATIVE) 01/13/17 15:33 Urine Blood Trace-intact (NEGATIVE) H 01/13/17 15:33 Urine Nitrate Negative (NEGATIVE) 01/13/17 15:33 Urine Bilirubin Negative (NEGATIVE) 01/13/17 15:33 Urine Urobilinogen 1.0 E.U./dL (<1 E.U./dL) H 01/13/17 15:33 Ur Leukocyte Esterase Negative Dania/uL (NEGATIVE) 01/13/17 15:33 Urine RBC 2 - 5 /hpf (0-2) 01/13/17 15:33 Urine WBC 0 - 2 /hpf (0-6) 01/13/17 15:33 - Hospital Course Hospital Course: sha Sheets is a 86 y/o male w/ a PMHx of COPD, colon cancer s/p resection, left eye ca s/p excision, BPH, and HTN who presents w/ intermittent left-sided neck pain which radiates down his left arm and left upper back for the past 2 hours. Daughter, Deepti, is bedside and provides more information about patient. Pt stated that the pain is sharp and electric and worsens when he moves, sits up or strains his neck. Pt lives at home with daughter and attends a daily adult daycare center and states that the pain began right after he turned his neck. Pt also c/o associated left arm numbness and tingling and pain in the left supraclavicular area. Pt states that he did not follow up with Dr. Vale after recent discharge. Patient was transferred to [facility] for monitoring. Troponin I negative x3. EKGs were unchanged from prior visit. Patient received duoneb treatments and steroids. Cardio and Pulm were consulted and cleared patient for discharge. D- dimer was elevated (533) in ED and so CTA chest was ordered and was negative for PE. PT evaluated the patient and was ambulating well. Patient improved and was not complaining of any chest pain or neck/UE pain on the morning of discharge. Pt is prescribed medrol dose pack and will f/u Dr. Vale. patient's daughter was contacted and informed about discharge instructions and stated that pt does not require refills. - Date & Time of H&P Date of H&P: 01/13/17 Time of H&P: 16:54 Discharge Exam - Head Exam Head Exam: ATRAUMATIC, NORMAL INSPECTION, NORMOCEPHALIC - Eye Exam Eye Exam: absent: Normal appearance Additional comments: L eye s/p excision R eye vision loss - ENT Exam ENT Exam: Mucous Membranes Moist - Neck Exam Neck exam: Normal Inspection - Respiratory Exam Respiratory Exam: Clear to PA & Lateral, NORMAL BREATHING PATTERN, UNREMARKABLE. absent: Rales, Rhonchi, Wheezes, Stridor - Cardiovascular Exam Cardiovascular Exam: RRR, +S1, +S2. absent: Gallop, JVD, Rubs - GI/Abdominal Exam GI & Abdominal Exam: Normal Bowel Sounds, Soft, Unremarkable. absent: Distended , Tenderness - Extremities Exam Extremities exam: full ROM, normal inspection - Back Exam Back exam: NORMAL INSPECTION - Neurological Exam Neurological exam: Alert, Normal Gait - Psychiatric Exam Psychiatric exam: Normal Affect, Normal Mood - Skin Skin Exam: Normal Color, Warm Discharge Plan - Discharge Medications Prescriptions: Methylprednisolone [Medrol Dose Pack (21 tabs)] 4 mg PO DAILY #21 mg - Follow Up Plan Condition: FAIR Disposition: HOME/ ROUTINE Instructions: Chest Pain (DC), Constipation (DC), High Fiber Diet (DC), Heart Healthy Diet (DC) Additional Instructions: - please call Dr. Vale and follow up with him in 3 days. - please continue your home medications as prescribed - please take the medrol dose pack as prescribed - if you experience worsening shortness of breath, cough, fevers/chills, or chest pain please return to ER for evaluation Referrals: Clement Murillo MD [Staff Provider] - <Delbert Johnson - Last Filed: 01/15/17 16:52> Provider - Provider Date of Admission: 01/13/17 15:31 Attending physician: Delbert Johnson MD Hospital Course - Lab Results Lab Results: Micro Results 01/13/17 15:33 Urine,Clean Catch Urine Culture - Final No Growth (<1,000 CFU/ML) Most Recent Lab Values WBC 3.6 10^3/ul (4.5-11.0) L 01/14/17 06:20 RBC 3.99 10^6/uL (3.5-6.1) 01/14/17 06:20 Hgb 13.1 g/dL (14.0-18.0) L 01/14/17 06:20 Hct 38.6 % (42.0-52.0) L 01/14/17 06:20 MCV 96.7 fl (80.0-105.0) 01/14/17 06:20 MCH 32.8 pg (25.0-35.0) 01/14/17 06:20 MCHC 33.9 g/dl (31.0-37.0) 01/14/17 06:20 RDW 12.4 % (11.5-14.5) 01/14/17 06:20 Plt Count 198 10^3/uL (120.0-450.0) 01/14/17 06:20 MPV 10.0 fl (7.0-11.0) 01/14/17 06:20 Gran % 51.7 % (50.0-68.0) 01/13/17 13:55 Lymph % (Auto) 37.5 % (22.0-35.0) H 01/13/17 13:55 Ashe % (Auto) 7.4 % (1.0-6.0) H 01/13/17 13:55 Eos % (Auto) 3.2 % (1.5-5.0) 01/13/17 13:55 Baso % (Auto) 0.2 % (0.0-3.0) 01/13/17 13:55 Gran # 2.09 (1.4-6.5) 01/13/17 13:55 Lymph # 1.5 (1.2-3.4) 01/13/17 13:55 Ashe # 0.3 (0.1-0.6) 01/13/17 13:55 Eos # 0.1 (0.0-0.7) 01/13/17 13:55 Baso # 0.01 K/mm3 (0.0-2.0) 01/13/17 13:55 PT 10.6 SECONDS (9.4-12.5) 01/14/17 06:20 INR 0.96 (0.93-1.08) 01/14/17 06:20 APTT 33.3 Seconds (25.1-36.5) 01/13/17 13:55 D-Dimer, Quantitative 533 ng/mL (0-243) H 01/13/17 13:55 pO2 23 mm/Hg (30-55) L 01/13/17 18:21 VBG pH 7.32 (7.32-7.43) 01/13/17 18:21 VBG pCO2 65.0 (40-60) H 01/13/17 18:21 VBG HCO3 33.5 mmol/l (21-28) H 01/13/17 18:21 VBG Total CO2 35.5 mmol.L (22-28) H 01/13/17 18:21 VBG O2 Sat (Calc) 47.5 % (40-65) 01/13/17 18:21 VBG Base Excess 5.3 mmol/L (0.0-2.0) H 01/13/17 18:21 VBG Potassium 4.0 mmol/L (3.6-5.2) 01/13/17 18:21 Sodium 139.0 mmol/L (132-148) 01/13/17 18:21 Chloride 105.0 mmol/L (98-107) 01/13/17 18:21 Glucose 94 mg/dl (75-110) 01/13/17 18:21 Lactate 1.0 mmol/L (0.7-2.1) 01/13/17 18:21 FiO2 21.0 % 01/13/17 18:21 Sodium 141 mmol/L (132-148) 01/14/17 06:20 Potassium 4.5 mmol/L (3.6-5.0) 01/14/17 06:20 Chloride 107 mmol/L (98-107) 01/14/17 06:20 Carbon Dioxide 28 mmol/L (21-33) 01/14/17 06:20 Anion Gap 11 (10-20) 01/14/17 06:20 BUN 16 mg/dL (7-21) 01/14/17 06:20 Creatinine 1.3 mg/dl (0.8-1.5) 01/14/17 06:20 Est GFR ( Amer) > 60 01/14/17 06:20 Est GFR (Non-Af Amer) 52 01/14/17 06:20 Random Glucose 116 mg/dL (70-110) H 01/14/17 06:20 Calcium 9.9 mg/dL (8.4-10.5) 01/14/17 06:20 Magnesium 1.8 mg/dL (1.7-2.2) 01/13/17 13:55 Total Bilirubin 1.1 mg/dL (0.2-1.3) 01/14/17 06:20 AST 25 U/L (17-59) 01/14/17 06:20 ALT 24 U/L (7-56) 01/14/17 06:20 Alkaline Phosphatase 48 U/L (38-126) 01/14/17 06:20 Lactate Dehydrogenase 397 U/L (333-699) 01/14/17 06:20 Total Creatine Kinase 69 U/L (35-230) 01/14/17 06:20 Troponin I < 0.01 ng/mL 01/14/17 06:20 NT-Pro-B Natriuret Pep 72.4 pg/mL (0-450) 01/13/17 13:55 Total Protein 7.4 g/dL (5.8-8.3) 01/14/17 06:20 Albumin 4.0 g/dL (3.0-4.8) 01/14/17 06:20 Globulin 3.4 gm/dL 01/14/17 06:20 Albumin/Globulin Ratio 1.2 (1.1-1.8) 01/14/17 06:20 Venous Blood Potassium 4.0 mmol/L (3.6-5.2) 01/13/17 18:21 Urine Color Yellow (YELLOW) 01/13/17 15:33 Urine Appearance Clear (CLEAR) 01/13/17 15:33 Urine pH 6.5 (4.7-8.0) 01/13/17 15:33 Ur Specific [place] 1.010 (1.005-1.035) 01/13/17 15:33 Urine Protein Negative mg/dL (<30 mg/dL) 01/13/17 15:33 Urine Glucose (UA) Negative mg/dL (NEGATIVE) 01/13/17 15:33 Urine Ketones Negative mg/dL (NEGATIVE) 01/13/17 15:33 Urine Blood Trace-intact (NEGATIVE) H 01/13/17 15:33 Urine Nitrate Negative (NEGATIVE) 01/13/17 15:33 Urine Bilirubin Negative (NEGATIVE) 01/13/17 15:33 Urine Urobilinogen 1.0 E.U./dL (<1 E.U./dL) H 01/13/17 15:33 Ur Leukocyte Esterase Negative Dania/uL (NEGATIVE) 01/13/17 15:33 Urine RBC 2 - 5 /hpf (0-2) 01/13/17 15:33 Urine WBC 0 - 2 /hpf (0-6) 01/13/17 15:33 Attending/Attestation - Attestation I have personally seen and examined this patient.: Yes I have fully participated in the care of the patient.: Yes I have reviewed all pertinent clinical information, including history, physical exam and plan: Yes Notes (Text): 01/15/17 16:51 Attending note; Patient seen and examined with resident. Patient is [id number] male with a past medical history of COPD, colon cancer s/p resection, left eye cancer s/p excision, BPH, and HTN who presents with intermittent left-sided neck pain which radiates down his left arm. Most likely musculoskeletal pain. Cardiac enzymes 3 negative. Cardiology evaluation with Dr. Hardy appreciated. COPD; continue DuoNeb treatment. Discharge home today with close follow-up with PMD and cardiology. Upon discharge the patient will follow up with PMD . Diagnosis; COPD Atypical chest pain Hypertension BPH
--- NOTE | 2017-01-14 21:20 | CON ---
DATE: CONSULT SERVICE: Cardiology. REASON FOR CONSULTATION/FOLLOWUP: Neck pain, sharp pain in the chest and middle of the clavicle, cardiac evaluation, rule out CAD. BRIEF CLINICAL HISTORY: This is an 86-year-old male legally blind who lives at daycare center; history of hypertension; COPD; colon cancer, status post resection; left eye cancer, status post excision; benign prostatic hypertrophy; and hypertension, who states he was in a daycare center, felt sharp pain just below the clavicle and neck pain and left arm felt numb, so the patient told the nurse and nurse called the ambulance and brought here. Denies any chest pain, dyspnea on exertion. The patient was recently discharged from here and denies any prior episode of chest pain, dyspnea on exertion, or shortness of breath on exertion. PAST MEDICAL HISTORY: Significant for hypertension; colon cancer, status post resection; history of eye cancer, status post eye resection; COPD. PAST SURGICAL HISTORY: Significant for colon cancer, history of colon resection, history of cholecystectomy, history of colon resection in 1993, history of left eye excision because of eye cancer in 1991, and history of right inguinal hernia as well. FAMILY HISTORY: Noncontributory. SOCIAL HISTORY: Previous smoker, quit in 1999. History of socially drink alcohol. ALLERGIES: NO KNOWN DRUG ALLERGY. PREVIOUS CARDIAC WORKUP: As follows, the patient had a stress test on 07/09/2016. That was a Lexiscan that shows myocardial perfusion study, mild fixed defect suggestive of an injury, fixed anterior-inferior defect probably due to diaphragmatic attenuation, no reversible ischemia noted. Ejection fraction 60%. The patient had echocardiography done on 07/09/2016 that showed ejection fraction 60% to 65%, trace aortic regurgitation, mild mitral regurgitation, mild tricuspid regurgitation, trace pulmonary insufficiency. REVIEW OF SYSTEMS: As per HPI. PHYSICAL EXAMINATION: VITAL SIGNS: As follows; temperature afebrile, heart rate 73, and blood pressure 135/74. HEENT: PERRLA. Extraocular muscles intact. NECK: Supple. No carotid bruits or thyromegaly. CHEST: Clear to auscultation. HEART: S1 and S2 regular. ABDOMEN: Soft. EXTREMITIES: Clubbing and cyanosis negative. LABORATORY DATA: EKG shows normal sinus, right bundle-branch block, first-degree AV block, rate 72, no acute ST-T changes noted. Blood work up as follows: WBC 3.6, hemoglobin 13.8, hematocrit 38.6, and platelet count 198. Chemistry showed sodium 141, potassium 4.5, chloride 107, carbon dioxide 28, anion gap of 11, BUN 16 and creatinine 1.6. Troponin 0.01 x2 negative. IMPRESSION: Atypical chest pain, musculoskeletal, given history of recent stress on 07/09/2016, there seems to be no reversible ischemia, history of recent echo, preserved LV function dated 07/09/2016, mild mitral regurgitation, mild tricuspid regurgitation ejection fraction 60%, history of colon cancer, history of legally blind, history of excision of the eye for the cancer, atypical chest pain. RECOMMENDATION: We will add third set of CPK and troponin. If third set of troponin is negative, the patient is okay to be discharged from cardiology point of view. We will discuss with you. We will follow with you. We will get TSH, review the last TSH also. No further cardiac workup is planned. If troponin remains negative, the patient is okay to be discharged. Thank you Dr. Johnson for providing us the opportunity in taking care of Rex Sheets. Keith Hardy MD
== END 2017-01-14 14:41 | disposition home or self-care (01) ==
LOC: ED 13:15 → ERH 15:31 → INTOOBSV 15:31 → ERH 16:50 → 3RSO 17:33
PROVIDERS: ADMIT Internal Medicine; ATTEND Internal Medicine
DX: R07.89 Other chest pain (principal); J44.1 Chronic obstructive pulmonary disease with (acute) exacerbation; N40.0 Benign prostatic hyperplasia without lower urinary tract symptoms; I10 Essential (primary) hypertension; M54.2 Cervicalgia; F03.90 Unspecified dementia, unspecified severity, without behavioral disturbance, psychotic disturbance, mood disturbance, and anxiety; Z85.840 Personal history of malignant neoplasm of eye; Z87.891 Personal history of nicotine dependence; D64.9 Anemia, unspecified; H54.8 Legal blindness, as defined in USA; I08.3 Combined rheumatic disorders of mitral, aortic and tricuspid valves; Z85.038 Personal history of other malignant neoplasm of large intestine
CPT/HCPCS: 36415; 71020; 71275; 74175; 80053; 81001; 82550; 82803; 83615; 83735; 83880; 84484; 85025; 85027; 85378; 85610; 85730; 87040; 87086; 93005; 94640; 97116; 97162; 97165; 97530; 99284; G0378; G8978; G8979; G8981; G8982; J1644; J2920; Q9967

== ENCOUNTER 2018-06-05 07:54 | Emergency (ER) | payer MEDICARE, MEDICAID ==
[2018-06-05 08:02] VITALS: RESP 18; TEMP 97.8; O2SAT 100; BMI 29.2
[2018-06-05] MEDS ORDERED: Sodium Chloride 0.9% 500 ML IV STA (08:30)
--- NOTE | 2018-06-05 08:48 | ED PDOC ---
Arrival/HPI - General Time Seen by Provider: 06/05/18 08:00 Historian: Patient - History of Present Illness Narrative History of Present Illness (Text): 06/05/18 08:30 87 y/o M w/ h/o COPD, colon cancer s/p resection, left eye ca s/p excision, BPH, and HTN, presents to the ED for evaluation of constipation and generalized abdominal discomfort since past 4 days. Patient notes passing gas when attempting to move bowels, unimproved after taking laxatives. Patient denies any other associated somatic complaints. Patient denies any fevers, chills, headache, dizziness, chest pain, shortness of breath, dyspnea on exertion, cough, diaphoresis, nausea, vomiting, back pain, neck pain, or any other complaints. PMD: Dr. Murillo Time/Duration: < week Symptom Onset: Gradual Symptom Course: Unchanged Activities at Onset: Light Context: Home Past Medical History - Provider Review Nursing Documentation Reviewed: Yes - Infectious Disease Hx of Infectious Diseases: None - Tetanus Immunization Tetanus Immunization: Unknown - Cardiac Hx Hypertension: Yes - Pulmonary Hx Chronic Obstructive Pulmonary Disease (COPD): Yes - Neurological Hx Neurological Disorder: Yes Hx Dementia: Yes - HEENT Hx HEENT Disorder: Yes (EPISTAXIS) Hx Blind: Yes (left eye cancer) Hx Deafness: Yes ([id number]) Hx Glaucoma: Yes (right eye) Other/Comment: legally blind - Renal Hx Renal Disorder: No - Endocrine/Metabolic Hx Endocrine Disorders: No - Hematological/Oncological Hx Blood Disorders: No Hx Cancer: Yes (Colon ca s/p resection) - Integumentary Hx Dermatological Disorder: No - Musculoskeletal/Rheumatological Hx Musculoskeletal Disorders: Yes Hx Falls: Yes - Gastrointestinal Hx Gastrointestinal Disorders: Yes (COLON CA WITH RESECTION,INGUINAL HERNIA) - Genitourinary/Gynecological Hx Genitourinary Disorders: Yes Hx Prostate Problems: Yes (BPH) Hx Urinary Tract Infection: Yes - Psychiatric Hx Psychophysiologic Disorder: No Hx Depression: Yes Hx Emotional Abuse: No Hx Physical Abuse: No Hx Substance Use: No - Surgical History Other/Comment: colon resection; left eye removal - Anesthesia Hx Anesthesia: Yes Hx Anesthesia Reactions: No Hx Malignant Hyperthermia: No - Suicidal Assessment Feels Threatened In Home Enviroment: No Family/Social History Family/Social History: No Known Family HX Smoking Status: Former Smoker Hx Alcohol Use: No Hx Substance Use: No Hx Substance Use Treatment: No Allergies/Home Meds Allergies/Adverse Reactions: Allergies No Known Allergies Allergy (Verified 01/13/17 19:55) Home Medications: Home Meds Medication Instructions Recorded Confirmed Donepezil [Aricept] 10 mg PO DAILY 01/06/18 01/06/18 Famotidine [Pepcid] 20 mg PO DAILY 01/06/18 01/06/18 Review of Systems - Physician Review All systems were reviewed & negative as marked: Yes - Review of Systems Constitutional: absent: Fevers Eyes: absent: Vision Changes Respiratory: absent: SOB Cardiovascular: absent: Chest Pain Gastrointestinal: Abdominal Pain, Constipation. absent: Diarrhea, Nausea, Vomiting, Appetite Changes Genitourinary Male: absent: Dysuria, Hematuria, Urinary Output Changes Musculoskeletal: absent: Back Pain, Neck Pain Skin: absent: Rash Neurological: absent: Headache, Dizziness, Focal Weakness Endocrine: absent: Diaphoresis Psychiatric: absent: Anxiety Physical Exam Vital Signs Reviewed: Yes Vital Signs Temp Pulse Resp BP Pulse Ox 06/05/18 08:01 97.8 F 65 18 158/101 H 100 Temperature: Afebrile Blood Pressure: Hypertensive Pulse: Regular Respiratory Rate: Normal Appearance: Positive for: Well-Appearing, Non-Toxic, Comfortable Pain Distress: None Mental Status: Positive for: Alert and Oriented X 3 - Systems Exam Head: Present: Atraumatic, Normocephalic Neck: Present: Normal Range of Motion Respiratory/Chest: Present: Clear to Auscultation, Good Air Exchange. No: Respiratory Distress, Accessory Muscle Use Cardiovascular: Present: Regular Rate and Rhythm, Normal S1, S2. No: Murmurs Abdomen: No: Tenderness, Distention, Peritoneal Signs Rectal: Present: Other (Stool noted in rectal wall) Back: Present: Normal Inspection Upper Extremity: Present: Normal Inspection. No: Cyanosis, Edema Lower Extremity: Present: Normal Inspection. No: Edema Neurological: Present: GCS=15, Speech Normal Skin: Present: Warm, Dry, Normal Color. No: Rashes Psychiatric: Present: Alert, Oriented x 3, Normal Insight, Normal Concentration Medical Decision Making ED Course and Treatment: 06/05/18 08:30 Impression: 87 year old male presents to the ED for evaluation of constipation and generalized abdominal discomfort. bedside exam has hard stool in rectal vault Plan: -- Labs -- IV fluids -- X-ray of Abdomen -- Urinalysis -- Reassess and disposition Prior Visits: Notes and results from previous visits were reviewed. Progress Notes: 06/05/18 10:33 X-ray of Abdomen reviewed by radiologist, shows: FINDINGS: BOWEL: Normal. No obstruction. No free air. BONES: Normal. OTHER FINDINGS: None. IMPRESSION: No active disease. 06/05/18 14:45 labs neg. abd sof tno distention nomral bs, urine treated. no e/o of sepsis. pt had large bm asking for dc. - RAD Interpretation Radiology Orders: 06/05/18 08:30 ABD 2 VIEWS (FLAT/UP OR DECUB) [RAD] Stat - Medication Orders Current Medication Orders: Sodium Chloride (Sodium Chloride 0.9%) 500 mls @ 999 mls/hr IV .Q31M STA Stop: 06/05/18 09:00 - Scribe Statement The provider has reviewed the documentation as recorded by the Scribe Chris Louis. All medical record entries made by the Scribe were at my direction and personally dictated by me. I have reviewed the chart and agree that the record accurately reflects my personal performance of the history, physical exam, medical decision making, and the department course for this patient. I have also personally directed, reviewed, and agree with the discharge instructions and disposition. Disposition/Present on Arrival - Present on Arrival Any Indicators Present on Arrival: No History of DVT/PE: No History of Uncontrolled Diabetes: No Urinary Catheter: No History of Decub. Ulcer: No History Surgical Site Infection Following: None - Disposition Have Diagnosis and Disposition been Completed?: Yes Diagnosis: Urinary tract infection, Constipation Disposition: HOME/ ROUTINE Disposition Time: 12:30 Condition: STABLE Discharge Instructions (ExitCare): Urinary Tract Infections in Adults, Constipation in Adults Additional Instructions: return to er with worsening symptoms or concerns. Prescriptions: Cefpodoxime [Vantin] 100 mg PO BID #20 tab Referrals: [facility] [Outside] - [place] up [place] [facility] [place] [facility] [place] - Follow up with primary Hilary Culver MD [Medical Doctor] - Follow up with primary Forms: [employer] (Jordanian)
[2018-06-05 09:11] LABS: BASO # 0.01 K/mm3 (0.0-2.0); BASO % 0.3 % (0.0-3.0); EOS # 0.1 (0.0-0.7); EOS % 2.5 % (1.5-5.0); HEMOGLOBIN 12.2 g/dL (14.0-18.0); LYMPH % 31.2 % (22.0-35.0); MEAN CELL VOLUME 97.9 fl (80.0-105.0); MEAN CORPUSCULAR HEMOGLOBIN 32.4 pg (25.0-35.0); MEAN CORPUSCULAR HGB CONC 33.1 g/dl (31.0-37.0); MEAN PLATELET VOLUME 9.8 fl (7.0-11.0); MONO # 0.4 (0.1-0.6); MONO % 12.9 % (1.0-6.0); RBC 3.77 10^6/uL (3.5-6.1); RED CELL DISTRIBUTION WIDTH 12.8 % (11.5-14.5); WHITE BLOOD COUNT 3.2 10^3/uL (4.5-11.0)
[2018-06-05 09:20] LABS: INR 1.04; PARTIAL THROMBOPLASTIN TIME 32.3 Seconds (26.9-38.3); PROTHROMBIN TIME 11.7 SECONDS (9.4-12.5)
[2018-06-05 09:24] LABS: ALB/GLOB RATIO 1.2 (1.1-1.8); ALBUMIN 3.6 g/dL (3.0-4.8); ALT/SGPT 11 U/L (7-56); AST/SGOT 26 U/L (17-59); BLOOD UREA NITROGEN 17 mg/dL (7-21); CALCIUM 9.4 mg/dL (8.4-10.5); GFR NON-AFRICAN AMERICAN 57; LIPASE 55 U/L (23-300)
[2018-06-05 10:31] LABS: URINE BILIRUBIN NEGATIVE (NEGATIVE); URINE BLOOD NEGATIVE (NEGATIVE); URINE GLUCOSE (UA) NEGATIVE (NEGATIVE); URINE LEUKOCYTE ESTERASE SMALL Leu/uL (NEGATIVE); URINE PROTEIN NEGATIVE mg/dL (<30 mg/dL); URINE UROBILINOGEN 0.2 E.U./dL (<1 E.U./dL)
--- NOTE | 2018-06-05 10:31 | RAD ---
Date of service: 06/05/2018 HISTORY: abd pain constipation COMPARISON: None available. TECHNIQUE: Three view obtained. FINDINGS: BOWEL: Normal. No obstruction. No free air. BONES: Normal. OTHER FINDINGS: None. IMPRESSION: No active disease.
[2018-06-05 10:33] LABS: URINE APPEARANCE SL CLOUDY (CLEAR); URINE COLOR YELLOW (YELLOW)
[2018-06-05] MEDS ORDERED: cefTRIAXone 1 gm 1 GM/100 ML BAG IVPB STA (10:34)
[2018-06-05 10:47] LABS: URINE BACTERIA MOD /hpf
[2018-06-05 12:26] VITALS: BP 170/65; PULSE 61
== END 2018-06-05 12:44 | disposition home or self-care (01) ==
LOC: ED 07:54
DX: N39.0 Urinary tract infection, site not specified (principal); K59.00 Constipation, unspecified; I10 Essential (primary) hypertension; J44.9 Chronic obstructive pulmonary disease, unspecified; Z85.038 Personal history of other malignant neoplasm of large intestine; Z87.891 Personal history of nicotine dependence
CPT/HCPCS: 74019; 80053; 81001; 83690; 83735; 85025; 85610; 85730; 87086; 96374; 99284; J0696; J7040